=== PATIENT | male | born 1950 | race Caucasian/White ===

== ENCOUNTER 2020-10-13 15:27 | Inpatient (IN) | payer MEDICARE, OTHER ==
[~2020-10-13] VITALS: Ht 177.8 cm; Wt 120.6 kg
[2020-10-13 19:14] LABS: Basophils # (auto) 0.1 10 ^3/uL (0-0.2); Basophils % (auto) 1.3 % (0.0-2.0); Eosinophils # (auto) 0.2 10 ^3/uL (0-0.8); Eosinophils % (auto) 2.8 % (0.0-7.0); Hematocrit 43.3 % (41.0-53.0); Hemoglobin 14.8 g/dL (13.5-17.5); Lymphocytes # (auto) 1.7 10 ^3/uL (0.4-5.4); Lymphocytes % (auto) 20.2 % (10.0-50.0); Mean Corpuscular Hemoglobin 28.9 pg (28.0-32.0); Mean Corpuscular Hgb Conc. 34.2 g/dL (32.0-36.0); Mean Corpuscular Volume 84.4 fL (80.0-100.0); Monocytes # (auto) 0.7 10 ^3/uL (0-1.3); Monocytes % (auto) 8.6 % (0.0-12.0); Neutrophils # (auto) 5.5 10 ^3/uL (1.6-8.6); Neutrophils % (auto) 67.1 % (37.0-80.0); Nucleated Red Blood Cells % 0.1 %; Red Blood Cells 5.13 10^6/uL (4.5-5.90); Red Cell Distribution Width 14.1 % (11.8-14.3); White Blood Cell 8.2 10^3/uL (4.4-10.8)
[2020-10-13 19:27] LABS: INR 0.96 (0.9-1.15)
[2020-10-13 19:31] LABS: Albumin 1.6 g/dL (3.4-5.0); Potassium 3.8 mmol/L (3.5-5.1)
[2020-10-13 19:47] LABS: BUN/Creatinine Ratio 13.4; Bilirubin, Total 0.3 mg/dL (0.2-1.0); Total Protein 5.8 g/dL (6.4-8.2)
[2020-10-13 20:53] LABS: Urine Bacteria FEW /hpf (None Seen); Urine Blood 2+ /uL (Negative); Urine Hyaline Cast FEW /lpf (0 - 2); Urine Mucus FEW (None Seen); Urine Specific Gravity 1.033 (1.001-1.035); Urine WBC 256 /hpf (0 - 3)
[2020-10-13] MEDS ORDERED: TEMAZEPAM 15 MG CAP PO PRN (21:00)
[2020-10-13] MEDS ORDERED: ACETAMINOPHEN 325 MG TAB PO PRN (21:00)
[2020-10-13] MEDS ORDERED: MORPHINE SULFATE 4 MG/ML SYR/VIAL IV PRN (21:00)
[2020-10-13] MEDS ORDERED: cefTRIAXone 1GM/50ML D5W 50 ML IV ONE ×2 (21:00)
[2020-10-13] MEDS ORDERED: ONDANSETRON HCL 4 MG/2 ML VIAL IV PRN (21:00)
[2020-10-14] MEDS ORDERED: DEXTROSE (50%) 50ML SYRG IV PRN ×2 (01:30→17:45)
[2020-10-14 02:23] VITALS: BP 142/83
[2020-10-14] MEDS ORDERED: PNEUMOCOCCAL VACC POLYS 25 MCG/0.5 ML VIAL IM ONE (03:30)
[2020-10-14] MEDS ORDERED: INSUINJ18 SC (04:27)
[2020-10-14 05:00] VITALS: BP 142/83
[2020-10-14] MEDS ORDERED: INSU1INJ26 SC (05:53)
[2020-10-14] MEDS ORDERED: AMLO1TAB16 PO (05:53)
[2020-10-14] MEDS ORDERED: LIRA18IN2 SUBCUT (05:53)
[2020-10-14] MEDS: ACCU-CHEK COMFORT CURVE STRIP VI SCH ×3 (05:57→17:45)
[2020-10-14] MEDS: InsuLIN REG 1unit/0.01ml Soln (100units/ml) SC SCH ×3 (05:58→17:47)
[2020-10-14 06:23] LABS: Basophils # (auto) 0.1 10 ^3/uL (0-0.2); Basophils % (auto) 1.4 % (0.0-2.0); Eosinophils # (auto) 0.3 10 ^3/uL (0-0.8); Eosinophils % (auto) 4.6 % (0.0-7.0); Hematocrit 41.5 % (41.0-53.0); Hemoglobin 13.9 g/dL (13.5-17.5); Lymphocytes # (auto) 1.6 10 ^3/uL (0.4-5.4); Lymphocytes % (auto) 29.1 % (10.0-50.0); Mean Corpuscular Hemoglobin 28.5 pg (28.0-32.0); Mean Corpuscular Hgb Conc. 33.6 g/dL (32.0-36.0); Mean Corpuscular Volume 84.9 fL (80.0-100.0); Monocytes # (auto) 0.6 10 ^3/uL (0-1.3); Monocytes % (auto) 10.7 % (0.0-12.0); Neutrophils % (auto) 54.2 % (37.0-80.0); Nucleated Red Blood Cells % 0.1 %; Red Blood Cells 4.88 10^6/uL (4.5-5.90); Red Cell Distribution Width 13.8 % (11.8-14.3); White Blood Cell 5.6 10^3/uL (4.4-10.8)
[2020-10-14 06:58] LABS: Calcium 7.8 mg/dL (8.5-10.1)
[2020-10-14 08:00] VITALS: BP 140/85
[2020-10-14] MEDS: cefTRIAXone 1GM/50ML D5W 50 ML IV SCH (09:22)
[2020-10-14] MEDS ORDERED: PANTOPRAZOLE 40 MG TAB PO SCH (10:00)
[2020-10-14 17:00] VITALS: BP 123/63
[2020-10-14] MEDS: HYDROcodone-ACET 5/325MG TAB PO PRN ×2 (17:54→21:46)
[2020-10-14 20:00] VITALS: BP 117/54
[2020-10-14 22:00] VITALS: BP 117/54
[2020-10-15] VITALS (7 sets, daily range): BP systolic 120–164; BP diastolic 70–96
[2020-10-15] MEDS: InsuLIN REG 1unit/0.01ml Soln (100units/ml) SC SCH ×5 (00:28→23:51)
[2020-10-15] MEDS: ACCU-CHEK COMFORT CURVE STRIP VI SCH ×5 (00:29→23:36)
[2020-10-15] MEDS: HYDROcodone-ACET 5/325MG TAB PO PRN (05:45)
[2020-10-15] MEDS: cefTRIAXone 1GM/50ML D5W 50 ML IV SCH (08:51)
[2020-10-15] MEDS ORDERED: LIDOCAINE 2%HCL (LOCAL ANESTH.) INJ 20ML MDV ONE (12:29)
[2020-10-15] MEDS ORDERED: fentaNYL CITRATE 100 MCG/2 ML VL ONE (12:50)
[2020-10-15] MEDS ORDERED: MIDAZOLAM HCL 2MG/2ML 2ml VIAL (1mg/ml) ONE (12:51)
[2020-10-15] MEDS ORDERED: ASPirin-EC 325mg tab PO ONE (20:00)
[2020-10-16] MEDS: HYDROcodone-ACET 5/325MG TAB PO PRN ×2 (01:00→05:16)
[2020-10-16 05:00] VITALS: BP 118/54
[2020-10-16] MEDS: InsuLIN REG 1unit/0.01ml Soln (100units/ml) SC SCH (05:15)
[2020-10-16] MEDS: ACCU-CHEK COMFORT CURVE STRIP VI SCH (05:15)
[2020-10-16 09:30] VITALS: BP 156/80
== END 2020-10-16 10:09 | disposition left against medical advice (07) | DRG 698 ==
LOC: ER 15:27 → EDBD 15:27 → OVERFLOW 20:59 → WEST WING 10-14 01:39
PROVIDERS: ADMIT Nurse Practitioner; ATTEND Family Medicine
PROC: 0T25X0Z Change Drainage Device in Kidney, External Approach (ICD-10-PCS; principal; 2020-10-15)
PROC: BT1F1ZZ Fluoroscopy of Left Kidney, Ureter and Bladder using Low Osmolar Contrast (ICD-10-PCS; 2020-10-15)
DX: T83.022A Displacement of nephrostomy catheter, initial encounter (principal); A41.9 Sepsis, unspecified organism; N13.6 Pyonephrosis; K80.20 Calculus of gallbladder without cholecystitis without obstruction; Z53.29 Procedure and treatment not carried out because of patient's decision for other reasons; Y73.2 Prosthetic and other implants, materials and accessory gastroenterology and urology devices associated with adverse incidents; Y92.89 Other specified places as the place of occurrence of the external cause; Z87.442 Personal history of urinary calculi; Z20.822 Contact with and (suspected) exposure to COVID-19; E11.65 Type 2 diabetes mellitus with hyperglycemia
CPT/HCPCS: 36415; 50435; 74176; 74425; 76000; 80048; 80053; 81001; 82962; 83605; 85025; 85610; 87040; 87081; 87086; 87426; 99152; C1729; G0378; J0696; J1815; J2250

== ENCOUNTER 2020-12-02 11:07 | Emergency (ER) | payer OTHER ==
[~2020-12-02] VITALS: Ht 185.4 cm; Wt 104.3 kg
[~2020-12-02 11:07] MED LIST: AMLO1TAB16 PO; INSU1INJ26 SC; LIRA18IN2 SUBCUT
[2020-12-02] MEDS ORDERED: IOHEXOL 300 MG/ML 100ML BOTTLE IJ ONE (12:31)
[2020-12-02 13:17] LABS: Basophils # (auto) 0.1 10 ^3/uL (0-0.2); Basophils % (auto) 1.7 % (0.0-2.0); Eosinophils # (auto) 0.1 10 ^3/uL (0-0.8); Eosinophils % (auto) 1.4 % (0.0-7.0); Hematocrit 40.4 % (41.0-53.0); Hemoglobin 13.3 g/dL (13.5-17.5); Lymphocytes # (auto) 1.8 10 ^3/uL (0.4-5.4); Lymphocytes % (auto) 27.4 % (10.0-50.0); Mean Corpuscular Hemoglobin 28.4 pg (28.0-32.0); Mean Corpuscular Hgb Conc. 32.8 g/dL (32.0-36.0); Mean Corpuscular Volume 86.5 fL (80.0-100.0); Monocytes # (auto) 0.6 10 ^3/uL (0-1.3); Monocytes % (auto) 9.6 % (0.0-12.0); Neutrophils # (auto) 3.9 10 ^3/uL (1.6-8.6); Neutrophils % (auto) 59.9 % (37.0-80.0); Nucleated Red Blood Cells % 0.1 %; Red Blood Cells 4.67 10^6/uL (4.5-5.90); Red Cell Distribution Width 15.8 % (11.8-14.3); White Blood Cell 6.5 10^3/uL (4.4-10.8)
[2020-12-02] MEDS ORDERED: TAMSULOSIN HYDROCHLORIDE 0.4 MG CAP PO ONE (14:15)
[2020-12-02 16:00] VITALS: BP 145/90
== END 2020-12-02 17:44 | disposition home or self-care (01) ==
LOC: EDBD 11:07 → ER 11:07
DX: S09.90XA Unspecified injury of head, initial encounter (principal); N20.0 Calculus of kidney; M25.522 Pain in left elbow; E11.9 Type 2 diabetes mellitus without complications; Z79.4 Long term (current) use of insulin; Z79.899 Other long term (current) drug therapy; V49.9XXA Car occupant (driver) (passenger) injured in unspecified traffic accident, initial encounter; Y93.89 Activity, other specified; Y92.89 Other specified places as the place of occurrence of the external cause; Y99.8 Other external cause status
CPT/HCPCS: 36415; 70450; 71045; 71260; 73080; 73090; 74177; 82962; 83880; 84484; 85025; 99285; Q9967; 93005

== ENCOUNTER → 2021-05-06 | Outpatient (CLI) | payer MEDICARE, OTHER ==
[2021-05-06 08:13] LABS: Urine Bacteria FEW /hpf (None Seen); Urine Blood 1+ /uL (Negative); Urine Mucus FEW (None Seen); Urine Specific Gravity 1.017 (1.001-1.035); Urine WBC 420 /hpf (0 - 3); Urine WBC Clumps PRESENT /hpf (None Seen)
[2021-05-06 08:23] LABS: Eosinophils # (auto) 0.2 10 ^3/uL (0-0.8); Hemoglobin 13.2 g/dL (13.5-17.5); Lymphocytes # (auto) 2.6 10 ^3/uL (0.4-5.4)
[2021-05-06 08:25] LABS: Basophils # (auto) 0.1 10 ^3/uL (0-0.2); Basophils % (auto) 1.1 % (0.0-2.0); Eosinophils % (auto) 2.8 % (0.0-7.0); Hematocrit 39.8 % (41.0-53.0); Lymphocytes % (auto) 35.6 % (10.0-50.0); Mean Corpuscular Hemoglobin 26.4 pg (28.0-32.0); Mean Corpuscular Hgb Conc. 33.3 g/dL (32.0-36.0); Mean Corpuscular Volume 79.2 fL (80.0-100.0); Monocytes # (auto) 0.4 10 ^3/uL (0-1.3); Monocytes % (auto) 6.1 % (0.0-12.0); Neutrophils % (auto) 54.4 % (37.0-80.0); Nucleated Red Blood Cells % 0.2 %; Red Blood Cells 5.02 10^6/uL (4.5-5.90); White Blood Cell 7.3 10^3/uL (4.4-10.8)
[2021-05-06 08:48] LABS: Chloride 107 mmol/L (98-107); Potassium 4.6 mmol/L (3.5-5.1); Sodium 138 mmol/L (136-145)
[2021-05-06 08:56] LABS: Protein, Urine 704.7 mg/dL (0.0-11.9)
[2021-05-06 08:57] LABS: Alanine Aminotransferase 14 U/L (16-61); Albumin 2.1 g/dL (3.4-5.0); Alkaline Phosphatase 77 U/L (45-117); Anion Gap 5 (5-15); Aspartate Aminotransferase 11 U/L (15-37); BUN/Creatinine Ratio 13.6; Bilirubin, Total < 0.1 mg/dL (0.2-1.0); Blood Urea Nitrogen 18 mg/dL (7-18); CRP High Sensitivity 0.36 mg/dL (< 0.3); Calcium 8.9 mg/dL (8.5-10.1); Carbon Dioxide 26 mmol/L (21-32); Cholesterol 266 mg/dL (< 200); GFR African American 69 mL/min; GFR Non-African American 57 mL/min; Glucose 232 mg/dL (74-106); HDL Cholesterol 38 mg/dL (40-59); LDL Cholesterol 170 mg/dL (< 100); Magnesium 1.9 mg/dL (1.6-2.6); Phosphorus 3.4 mg/dL (2.5-4.90); Triglycerides 284 mg/dL (< 150)
== END | disposition home or self-care (01) ==
LOC: LAB 06:51
PROVIDERS: ATTEND Internal Medicine Nephrology
DX: N18.31 Chronic kidney disease, stage 3a (principal); N04.9 Nephrotic syndrome with unspecified morphologic changes; Z79.899 Other long term (current) drug therapy
CPT/HCPCS: 36415; 80053; 80061; 81001; 82306; 82570; 83036; 83735; 83883; 83970; 84100; 84156; 85025; 85652; 86141; 86160; 86256

== ENCOUNTER → 2021-05-30 | Outpatient (CLI) | payer MEDICARE, OTHER ==
[2021-05-30 10:33] LABS: Basophils # (auto) 0.1 10 ^3/uL (0-0.2); Eosinophils # (auto) 0.2 10 ^3/uL (0-0.8); Monocytes # (auto) 0.4 10 ^3/uL (0-1.3); Neutrophils # (auto) 3.2 10 ^3/uL (1.6-8.6); Red Cell Distribution Width 17.8 % (11.8-14.3); White Blood Cell 6.6 10^3/uL (4.4-10.8)
[2021-05-30 10:35] LABS: Basophils % (auto) 1.8 % (0.0-2.0); Eosinophils % (auto) 3.3 % (0.0-7.0); Hematocrit 42.6 % (41.0-53.0); Hemoglobin 14.2 g/dL (13.5-17.5); Lymphocytes # (auto) 2.6 10 ^3/uL (0.4-5.4); Lymphocytes % (auto) 39.8 % (10.0-50.0); Mean Corpuscular Hemoglobin 27.2 pg (28.0-32.0); Mean Corpuscular Hgb Conc. 33.3 g/dL (32.0-36.0); Mean Corpuscular Volume 81.6 fL (80.0-100.0); Monocytes % (auto) 6.8 % (0.0-12.0); Neutrophils % (auto) 48.3 % (37.0-80.0); Nucleated Red Blood Cells % 0.2 %; Red Blood Cells 5.22 10^6/uL (4.5-5.90)
[2021-05-30 10:55] LABS: INR 0.96 (0.9-1.15)
== END | disposition home or self-care (01) ==
LOC: LAB 09:56
PROVIDERS: ATTEND Internal Medicine Nephrology
DX: E11.65 Type 2 diabetes mellitus with hyperglycemia (principal); E11.22 Type 2 diabetes mellitus with diabetic chronic kidney disease; N18.31 Chronic kidney disease, stage 3a; N20.0 Calculus of kidney; R80.9 Proteinuria, unspecified
CPT/HCPCS: 36415; 85025; 85610; 85730

== ENCOUNTER → 2021-07-05 | Outpatient (CLI) | payer MEDICARE, OTHER ==
[2021-07-05 11:49] LABS: Basophils # (auto) 0.1 10 ^3/uL (0-0.2); Basophils % (auto) 1.7 % (0.0-2.0); Eosinophils # (auto) 0.3 10 ^3/uL (0-0.8); Eosinophils % (auto) 4.3 % (0.0-7.0); Monocytes # (auto) 0.4 10 ^3/uL (0-1.3); Nucleated Red Blood Cells % 0.1 %
[2021-07-05 11:52] LABS: Hematocrit 42.6 % (41.0-53.0); Hemoglobin 14.3 g/dL (13.5-17.5); Lymphocytes # (auto) 3.1 10 ^3/uL (0.4-5.4); Lymphocytes % (auto) 44.9 % (10.0-50.0); Mean Corpuscular Hemoglobin 27.2 pg (28.0-32.0); Mean Corpuscular Hgb Conc. 33.5 g/dL (32.0-36.0); Mean Corpuscular Volume 81.1 fL (80.0-100.0); Monocytes % (auto) 6.5 % (0.0-12.0); Neutrophils % (auto) 42.6 % (37.0-80.0); Red Blood Cells 5.26 10^6/uL (4.5-5.90); Red Cell Distribution Width 16.9 % (11.8-14.3); White Blood Cell 6.9 10^3/uL (4.4-10.8)
[2021-07-05 12:11] LABS: INR 1.02 (0.9-1.15); Partial Thromboplastin Time 29.4 sec (23.6-33.0)
[2021-07-05 12:36] LABS: Albumin 2.5 g/dL (3.4-5.0); Calcium 8.5 mg/dL (8.5-10.1); Potassium 4.3 mmol/L (3.5-5.1)
[2021-07-05 12:51] LABS: BUN/Creatinine Ratio 17.9; Bilirubin, Total 0.5 mg/dL (0.2-1.0); Total Protein 6.7 g/dL (6.4-8.2)
== END | disposition home or self-care (01) ==
LOC: LAB 11:17
PROVIDERS: ATTEND Internal Medicine Nephrology
DX: Z01.812 Encounter for preprocedural laboratory examination (principal); N18.31 Chronic kidney disease, stage 3a
CPT/HCPCS: 36415; 80053; 85025; 85610; 85730

== ENCOUNTER 2024-01-21 05:11 | Inpatient (IN) | payer OTHER ==
[~2024-01-21] VITALS: Ht 177.8 cm; Wt 93.0 kg
[2024-01-21] VITALS (17 sets, daily range): BP systolic 132–173; BP diastolic 50–92; PULSE 62–86; RESP 12–20; TEMP 97.4–98.8; O2SAT 95–100
[~2024-01-21 05:11] MED LIST changes: +HYDR-4798 PO
--- NOTE | 2024-01-21 05:21 | ED.PDOC ---
HPI Comments 74-year-old male with PMHx HTN, DM brought in by EMS presents with a chief complaint of chest pain onset 0200 this morning. Patient states that he was sleeping and got up to use the restroom at 0200 and began to have onset of chest pain. Patient reports that his pain is localized to his substernal chest, non- radiating, and describes as "feels like a big lump in my chest". Patient mentions that he called 911 and was told to take ASA, which he did. Patient took a total of 500mg ASA. Patients EKG was sent to on-call STEMI provider, Dr. Pizarro, who confirmed it was a STEMI. Code STEMI was called overhead. Time Seen by MD: 05:13 Reviewed Notes: Medications, Allergies Allergies: Coded Allergies: NO KNOWN ALLERGIES (Unverified , 04/28/23) Home Meds Active Scripts Hydrocodone-Acetaminophen (Hydrocodone Bitartrate/AC 10-325 mg) 1 Tab Tab, 1 TAB PO BID, #12 TAB Prov:DAVONTE PICHARDO 04/28/23 Information Source: Patient, Emergency Med Personnel Mode of Arrival: EMS Severity: Moderate Timing: Hours Duration: Since onset Prehospital treatment: ASA Location: Substernal Radiation: No Radiation Quality: Pressure Onset: At Rest Cardiac Risk Factors: HTN, Diabetes PE Risk Factors: None History of: Aspirin Past Medical History PAST MEDICAL HISTORY: DM, HTN Surgical History: Denies all surgeries Family History Family History: Reviewed,noncontributory to illness Social History Smoker: Non-Smoker Alcohol: Denies ETOH Use Drugs: Denies Drug Use Lives In: Home Constitutional: denies: chills, diaphoresis, fatigue, fever, malaise, sweats, weakness, others EENTM: denies: blurred vision, double vision, ear bleeding, ear discharge, ear drainage, ear pain, ear ringing, eye pain, eye redness, hearing loss, mouth pain, mouth swelling, nasal discharge, nose bleeding, nose congestion, nose pain, photophobia, tearing, throat pain, throat swelling, voice changes, others Respiratory: denies: cough, hemoptysis, orthopnea, SOB at rest, shortness of breath, SOB with excertion, stridor, wheezing, others Cardiovascular: reports: chest pain; denies: dizzy spells, diaphoresis, Dyspnea on exertion, edema, irregular heart beat, left arm pain, lightheadedness, palpitations, PND, syncope, others Gastrointestinal: denies: abdomen distended, abdominal pain, blood streaked bowels, constipated, diarrhea, dysphagia, difficulty swallowing, hematemesis, melena, nausea, poor appetite, poor fluid intake, rectal bleeding, rectal pain, vomiting, others Genitourinary: denies: burning, dysuria, flank pain, frequency, hematuria, incontinence, penile discharge, penile sore, pain, testicle pain, testicle swelling, urgency, others Neurological: denies: dizziness, fainting, headache, left sided numbness, left sided weakness, numbness, paresthesia, pre-existing deficit, right sided numbness, right sided weakness, seizure, speech problems, tingling, tremors, weakness, others Musculoskeletal: denies: back pain, gout, joint pain, joint swelling, muscle pain, muscle stiffness, neck pain, others Integumetry: denies: bruises, change in color, change in hair/nails, dryness, laceration, lesions, lumps, rash, wounds, others Allergic/Immunocompromised: denies: Difficulty Healing, Frequent Infections, Hives, Itching, others Hematologic/Lymphatic: denies: anemia, blood clots, easy bleeding, easy bruising, swollen glands, others Endocrine: denies: excessive hunger, excessive sweating, excessive thirst, excessive urination, flushing, intolerance to cold, intolerance to heat, un explained weight gain, unexplained weight loss, others Psychiatric: denies: anxiety, bipolar disorder, depression, hopeless, panic disorder, schizophrenia, sleepless, suicidal, others All Other Systems: Reviewed and Negative Physical Exam General Appearance: No Apparent Distress, Normal HEENT: Normal ENT Inspection, Pharynx Normal, TMs Normal Neck: Full Range of Motion, Non-Tender, Normal, Normal Inspection Respiratory: Chest Non-Tender, Lungs Clear, No Accessory Muscle Use, No Respiratory Distress, Normal Breath Sounds Cardiovascular: No Edema, No JVD, No Murmur, No Gallop, Normal Peripheral Pu lses, Regular Rate/Rhythm, Other (CHEST PAIN) Breast Exam: Deferred Gastrointestinal: No Organomegaly, Non Tender, No Pulsatile Mass, Normal Bowel Sounds, Soft Genitalia: Deferred Pelvic: Deferred Rectal: Deferred Extremities: No calf tenderness, Normal capillary refill, Normal inspection, Normal range of motion, Non-tender, No pedal edema Musculoskeletal : Apperance: Normal Neurologic: Alert, preparation room worker II-XII nml as Tested, No Motor Deficits, Normal Affect, Normal Mood, No Sensory Deficits Cerebellar Function: Normal Reflexes: Normal Skin: Dry, Normal Color, Warm Lymphatic: No Adenopathy Was a procedure done? Was a procedure done?: No CP Differential Dx Differential Diagnosis: MAT, OK, PAC's Differential Diagnosis: CHF, HTN Essential, HTN Accelerated Differential Diagnosis: Myocardial Infarction X-Ray, Labs, Meds, VS Vital Signs Date Time Temp Pulse Resp B/P (MAP) Pulse Ox O2 Delivery O2 Flow Rate FiO2 01/21/24 05:27 86 15 189/105 (133) 100 01/21/24 05:27 86 01/21/24 05:23 98.4 74 16 179/143 (155) 98 Lab Test 01/21/24 05:26 01/21/24 05:19 Range/Units Lactic Acid Level Pending White Blood Count Pending Red Blood Count Pending Hemoglobin Pending Hematocrit Pending Mean Corpuscular Volume Pending Mean Corpuscular Hemoglobin Pending Mean Corpuscular Hemoglobin Concent Pending Red Cell Distribution Width Pending Platelet Count Pending Mean Platelet Volume Pending Neutrophils (%) (Auto) Pending Lymphocytes (%) (Auto) Pending Monocytes (%) (Auto) Pending Basophils (%) (Auto) Pending Neutrophils # (Auto) Pending Lymphocytes # (Auto) Pending Monocytes # (Auto) Pending Prothrombin Time Pending Prothrombin Time INR Pending Activated Partial Thromboplast Time Pending Sodium Level Pending Potassium Level Pending Chloride Level Pending Carbon Dioxide Level Pending Anion Gap Pending Blood Urea Nitrogen Pending Creatinine Pending Glomerular Filtration Rate Calc Pending BUN/Creatinine Ratio Pending Serum Glucose Pending Calcium Level Pending Troponin I High Sensitivity Pending B-Type Natriuretic Peptide Pending Current Medications Medications (Trade) Dose Ordered Sig/Meli Route Start Time Stop Time Status Last Admin Heparin Sodium (Porcine) 4,000 units ONCE ONCE IV 01/21/24 05:30 01/21/24 05:31 DC 01/21/24 05:24 Time of 1ST Reevaluation: 05:43 Reevaluation 1ST: Unchanged Patient Education/Counseling: Diagnosis, Treatment, Prognosis Family Education/Counseling: No Family Present Departure 1 Departure Time of Disposition: 05:36 (Patient presented with chest pain that was concerning for possible STEMI, ACS, PE, Pneumonia, Muscle Strain, COPD, Dissection. Data: 1. I ordered and reviewed the result of at least 3 labs including a CBC, BMP, and Troponin. 2. I independently interpreted the following tests: EKG which shows an inferior OK and Chest X-ray which shows benign chest.Risk:This patient has a high risk of morbidity due to further diagnostic testing or treatment and may suffer from an acute cardiac or respiratory disorder. 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 This critical care time included obtaining a history; examining the patient; pulse oximetry; ordering and review of studies; arranging urgent treatment with development of a management plan; evaluation of patient's response to treatment; frequent reassessment; and, discussions with other providers. This critical care time was performed to assess and manage the high probability of imminent, life-threatening deterioration that could result in multi-organ failure. It was exclusive of separately billable procedures and treating other patients and teaching time. Please see my other sections and the rest of the note for further information on patient assessment and treatment. Stability Stability form required: No Heart Score Heart Score: Heart Score Response (Comments) Value History Highly Suspicious [address]-Deviation 2 Age >65 2 Risk Factors >3 or Hx ASHD 2 Troponin >3 x's Normal limit 2 Total 10 I personally scribed for GUME MIDDLETON MD ([email or web address]) on 01/21/24 at 05:21. Electronically submitted by Angel Llanos ([email or web address]). GUME MIDDLETON MD Jan 21, 2024 05:21
[2024-01-21] MEDS: HEPARIN SODIUM (PORCINE) 5000 UNITS/ML 1ML VIAL IV ONE (05:24)
[2024-01-21 05:36] LABS: Basophils # (auto) 0.1 10 ^3/uL (0-0.2); Eosinophils # (auto) 0.1 10 ^3/uL (0-0.8); Eosinophils % (auto) 1.6 % (0.0-7.0); Hematocrit 44.8 % (41.0-53.0); Hemoglobin 14.7 g/dL (13.5-17.5); Lymphocytes # (auto) 2.2 10 ^3/uL (0.4-5.4); Lymphocytes % (auto) 27.3 % (10.0-50.0); Mean Corpuscular Hemoglobin 27.6 pg (28.0-32.0); Mean Corpuscular Hgb Conc. 32.9 g/dL (32.0-36.0); Mean Corpuscular Volume 83.8 fL (80.0-100.0); Monocytes # (auto) 0.6 10 ^3/uL (0-1.3); Monocytes % (auto) 7.6 % (0.0-12.0); Neutrophils # (auto) 5.1 10 ^3/uL (1.6-8.6); Neutrophils % (auto) 62.5 % (37.0-80.0); Nucleated Red Blood Cells % 0.1 %; Platelet Count (auto) 227 10^3/uL (140-450); Red Blood Cells 5.34 10^6/uL (4.5-5.90); Red Cell Distribution Width 16.3 % (11.8-14.3); White Blood Cell 8.2 10^3/uL (4.4-10.8)
[2024-01-21 05:52] LABS: Potassium 4.3 mmol/L (3.5-5.1); Sodium 141 mmol/L (136-145)
[2024-01-21 05:53] LABS: Anion Gap 10 (5-15); Carbon Dioxide 23 mmol/L (20-31)
[2024-01-21 05:54] LABS: Calcium 9.7 mg/dL (8.7-10.4); INR 0.97 (0.9-1.15); Partial Thromboplastin Time 27.1 SEC (24.5-34.5); Prothrombin Time 10.3 sec (9.3-11.8)
--- NOTE | 2024-01-21 05:54 | DVHINCON2 ---
Date of service: Jan 21, 2024 History of Present Illness 74 yo M with IDDM, dm, htn HL admitted for stemi. pt woke up this AM with chest pike from asleep and called 911. pt had inferior ST elevation Past Medical History reviewed Allergies: Coded Allergies: NO KNOWN ALLERGIES (Unverified , 04/28/23) Home Meds Active Scripts Hydrocodone-Acetaminophen (Hydrocodone Bitartrate/AC 10-325 mg) 1 Tab Tab, 1 TAB PO BID, #12 TAB Prov:DAVONTE PICHARDO 04/28/23 Current Medications Current Medications Medications (Trade) Dose Ordered Sig/Meli Route PRN Reason Start Time Stop Time Status Last Admin Heparin Sodium/ Dextrose 250 ml @ 14.16 mls/ hr [id number] IV 01/21/24 05:30 UNV Review of Systems +chest pain +sob +diaphoresis 10 pt ros otherwise negative Vital Signs Vital Signs Date Time Temp Pulse Resp B/P (MAP) Pulse Ox O2 Delivery O2 Flow Rate FiO2 01/21/24 05:27 86 15 189/105 (133) 100 01/21/24 05:23 98.4 Physical Exam mild distress obese heavy male LEDA EOM! s1 s2 rrr ctab soft nt/nd trivial edema Labs/Diagnostic Data Labs Test 01/21/24 05:26 01/21/24 05:19 Range/Units White Blood Count 8.2 4.4-10.8 10^3/uL Red Blood Count 5.34 4.5-5.90 10^6/uL Hemoglobin 14.7 13.5-17.5 g/dL Hematocrit 44.8 41.0-53.0 % Mean Corpuscular Volume 83.8 80.0-100.0 fL Mean Corpuscular Hemoglobin 27.6 L 28.0-32.0 pg Mean Corpuscular Hemoglobin Concent 32.9 32.0-36.0 g/dL Red Cell Distribution Width 16.3 H 11.8-14.3 % Platelet Count 227 140-450 10^3/uL Mean Platelet Volume 8.0 6.9-10.8 fL Neutrophils (%) (Auto) 62.5 37.0-80.0 % Lymphocytes (%) (Auto) 27.3 10.0-50.0 % Monocytes (%) (Auto) 7.6 0.0-12.0 % Eosinophils (%) (Auto) 1.6 0.0-7.0 % Basophils (%) (Auto) 1.0 0.0-2.0 % Neutrophils # (Auto) 5.1 1.6-8.6 10 ^3/uL Lymphocytes # (Auto) 2.2 0.4-5.4 10 ^3/uL Monocytes # (Auto) 0.6 0-1.3 10 ^3/uL Eosinophils # (Auto) 0.1 0-0.8 10 ^3/uL Basophils # (Auto) 0.1 0-0.2 10 ^3/uL Nucleated Red Blood Cells 0.1 % Assessment stemi HTN IDDM HL Plan/Recommendation pt at highest risk for cv complications or , pt agrees to [facility] after informed consent asa heparin check echo admit to ICU /sejal further recs to follow 90 mins critical care time spent Plan discussed with: Patient PATTERSONTANVIR MD Jan 21, 2024 05:54
--- NOTE | 2024-01-21 06:06 | DVH ---
CHEST RADIOGRAPH Indication: chest pain Technique: Single frontal view of the chest was obtained Comparison: None FINDINGS: Lines and Tubes: None Lungs: Bilateral interstitial prominence. No focal consolidation. Pleura: No effusion. No pneumothorax. Cardiomediastinal contours: Cardiomegaly. Bones: No acute osseous abnormality. IMPRESSION: 1. Pulmonary vascular congestion.
[2024-01-21 06:25] LABS: Chloride 108 mmol/L (98-107); Glucose 185 mg/dL (74-106)
[2024-01-21] MEDS ORDERED: HEPARIN DRIP/D5W 100UNITS/ML 250 ML IV SCH (06:30)
[2024-01-21 06:42] LABS: BUN/Creatinine Ratio 16.5 (10.0-20.0)
[2024-01-21 06:47] LABS: Blood Urea Nitrogen 31 mg/dL (9-23)
--- NOTE | 2024-01-21 06:52 | ECG ---
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
--- NOTE | 2024-01-21 07:24 | DVHOP2 ---
Operative Report Operative Report CARDIAC [employer]PLE MEAT CUTTER PROCEDURE REPORT [place], [place] Date of Service: 01/21/24 Ground Worker: Ryan Patterson MD PROCEDURES PERFORMED: Coronary angiogram, left heart catheterization, conscious sedation administration and supervision, less than 15 minutes; fluoroscopy use and interpretation. PTCA 1 vessel, PCI 1 v essel, Acute AK intervention, STEMI intervention, conscious sedation 15-30 mins, sedation 30-45 mins PREOPERATIVE DIAGNOSES: inferior stemi POSTOP DIAGNOSIS: inferior stemi DESCRIPTION OF PROCEDURE: The patient or appropriate family signed informed consent understanding the risks, benefits and alternatives of the procedure, they wished to proceed. The patient was brought to the cardiac warehouse general laborer in [place] state. The patient was prepped in a sterile fashion. Sedation was used per cardiac cath protocol. I administered 2 mL of 2% lidocaine to the right wrist. With an antegrade front wall puncture. I cannulated the right radial artery and placed a 6-Uzbek Glidesheath slender. Next, an intra-arterial spasmolytic was administered. Next, a -6F JR4 guide and JL3.5 cathetr and were used for coronary angiogram and LVEDP measurement and pressure pullback. At the completion of procedure, all guides and wires were removed, and there were no immediate complications. FINDINGS: RCA: Moderate vessel off the right sinus of Valsalva, there is a distal RCA 100% occlusion with valorie 0 flow. this is a dominant vessel with a very large PDA coming off distally that reaches entire inferoapex of LV LEFT MAIN: Moderate size left main, it bifurcates into LAD and circumflex.20- 30% stenosis distally CIRCUMFLEX: Moderate caliber vessel coming off the left main. 80% prox ecce ntric lesion and 85% OM1 long tubular lesion . LAD: LAD is a moderate caliber vessel coming of the left main. there is diffus e 50% stenosis in mid portion. its a smaller vessel compared to cx and rca. INTERVENTION: We decided to proceed with coronary intervention. I started with a 6F __JR4 __ Guide to intubate the __RCA . Angiomax bolus and gtt was started. Following this, I decided to wire using an .014 BMW across the culprit lesion with ease. At this time, we performed balloon angioplasty with a _2.5 x 12 mm balloon 8___ ATMS over __15__ seconds with 2_ number of inflations. Following this, I decided to place a stent using a 2.5 x 26 mm onyx____ stent inflated up to __18___ ATMS over 15 seconds with two separate inflations. THen i covered more proximally given long lesion with 3.0 x 26 mm YVAN inflated up to 16 atms over 15 seconds with 2 inflations and one more inflation between 2 stents. Following this, the stent balloon removed and angio performed showing 0% residual stenosis. VALORIE pre/post: 3./3 CONCLUSIONS: 1. successful PCI of an acutely occluded distal RCA 100% lesion and valorie 0 flow now with 2 YVAN and valorie 3 flow 2. CX PCI to follow staged PLAN: Aggressive risk factor modification and medical management for the patient. DAPT x 1 year uninterrupted RYAN PATTERSON MD Jan 21, 2024 07:24
[2024-01-21] MEDS ORDERED: MORPHINE SULFATE INJ 2 MG/ml SYRG IV PRN (07:30)
[2024-01-21] MEDS ORDERED: NITROGLYCERIN 0.4 MG SL TAB SL PRN (07:30)
--- NOTE | 2024-01-21 10:20 | DVHSR ---
APPROVED REPORT EXAM: Two-dimensional and M-mode echocardiogram with Doppler and color Doppler. INDICATION STEMI RISK FACTORS Height: 5'10", Weight: 260 DIMENSIONS LVDd5.4 (3.8-5.7cm)LA (2D)4.7 (1.9-4.0cm)Aortic Root3.5 (2.0-3.7cm) LVDs4.0 (2.5-4.0cm)LA (MM) (1.9-4.0cm)Aortic Cusp Exc2.4 (1.5-2.0cm) EF (%) 50.0 (55-70%)Rt. Atrium4.2 (1.9-4.0cm)Asc. Aorta3.7 cm IVSd1.3 (0.7-1.1cm)RV (D) (1.8-2.4cm) PWd1.0 (0.7-1.1cm) Mitral Valve MitralMitral Stenosis E wave0.68m/sMV Mean GR.mmHg A wave1.16m/sMV Peak GR.mmHg E/A ratio0.62D MVAcm2 DECEL [id number] 1/2 Timems Aortic Valve Aortic ValveAortic Stenosis V10.77m/Bhaskar Mean GR.3mmHg V21.13m/Bhaskar Peak GR.5mmHg LVOT Diameter2.5 (1.8-2.4cm)Doppler AVA3.34cm2 Pulmonic Valve V20.85m/s Other Information Quality : Technically LimitedRhythm : Technically limited study due to patient position and body habitus. Conclusion lvef 40-45% mild LVH inferior wall RWMA RV enlarged mild no severe valve abnormaliites noted
--- NOTE | 2024-01-21 11:56 | DVHPN2 ---
Progress Note Date Seen: Jan 21, 2024 Medical Necessity Reason Pt with a Central, PICC or Fol: No Subjective Patient reports: No new complaints Review of Systems: HEENT:Normal, CVS:Normal, RESPIRATORY:Normal, GI:Normal, :Normal, MSK:Normal, NEURO:Normal Objective vital signs Vital Sign Date Time Temp Pulse Resp B/P (MAP) Pulse Ox O2 Delivery O2 Flow Rate FiO2 01/21/24 10:12 97.9 82 14 155/80 (105) 97.9 01/21/24 09:31 99 Nasal Cannula* 2 28 medications Current Medications Medications Dose Ordered Sig/Meli Route Start Time Stop Time Status Last Admin Dose Admin Heparin Sodium/ Dextrose 250 ml @ 10 mls/hr Q24H IV 01/21/24 06:30 Nitroglycerin 0.4 mg Q5MINP PRN SL 01/21/24 07:30 Morphine Sulfate 2 mg Q30M PRN IV 01/21/24 07:30 Aspirin 81 mg DAILY PO 01/22/24 10:00 Clopidogrel Bisulfate 75 mg DAILY PO 01/22/24 10:00 Examination: GENERAL:Normal, HEENT:Normal, NECK:Normal, LUNGS:Normal, CVS:Normal, ABDOMEN:Normal, MSK:Normal, SKIN:Normal, NEURO:Normal, :Normal laboratory and microbiology Laboratory Tests 01/21/24 05:19 Test 01/21/24 05:19 Range/Units Serum Glucose 185 H 74-106 mg/dL Problem List/Assessment/Plan Problem List/Assessment/Plan #1 acute mi s/p stents: asa, plavix, lipitor #2 htn: lopressor, norvasc #3 dm: ssi #4 obesity #5 peripheral neuropathy #6 acute systolic/diastolic heart failure: echo #7 ckd stage 3b: usg, ua full code for now, will re evaluate code status Plan discussed with: Patient My Orders My Orders Orders - TEMI CRENSHAW MD Procedure Category Date Status Time Glucose Blood PHA 01/21/24 Transmitted (Accu-Chek Comfort 17:00 Mild Sliding Scale PHA 01/21/24 Transmitted 17:00 Dextrose 50% Syringe PHA 01/21/24 Transmitted 12:00 Urinalysis LAB 01/21/24 Transmitted 11:49 Kidney US 01/21/24 Transmitted 11:49 Complete Blood Count LAB 01/22/24 Verified 06:00 Comprehensive LAB 01/22/24 Verified Metabolic Panel 06:00 Hemoglobin A1c LAB 01/22/24 Verified 06:00 Lipid Panel LAB 01/22/24 Verified 06:00 Atorvastatin (Lipitor) PHA 01/21/24 Transmitted 22:00 Metoprolol Tartrate PHA 01/21/24 Transmitted Tablet (Lopressor Ta 12:00 Metoprolol Tartrate PHA 01/21/24 Transmitted Tablet (Lopressor Ta 22:00 Amlodipine Tablet PHA 01/22/24 Transmitted (Norvasc Tablet) 10:00 Hydrocodone-Acet PHA 01/21/24 Transmitted 10/325mg Tab (M[place] 12:00 Ondansetron Hcl PHA 01/21/24 Transmitted (Zofran) 12:00 Acetaminophen Tablet PHA 01/21/24 Transmitted (Tylenol Tablet) 12:00 Consistent DIET 01/21/24 Verified Carb(Ccho)Diabetes Lunch Critical Care Time (mins): 39 (critical care time 39 mins) Date of Service: Jan 21, 2024 Billing Provider: TEMI CRENSHAW MD Common Visit Codes: [id number] CARE 30-74 MIN TEMI CRENSHAW MD Jan 21, 2024 11:56
[2024-01-21] MEDS ORDERED: DEXTROSE (50%) 50ML SYRG IV PRN (12:00)
[2024-01-21] MEDS ORDERED: ONDANSETRON HCL 4 MG/2 ML VIAL IV PRN (12:00)
[2024-01-21] MEDS: METOPROLOL TARTRATE 25 MG TAB PO ONE (13:09)
--- NOTE | 2024-01-21 13:29 | DVH ---
RENAL ULTRASOUND CLINICAL HISTORY: renal failure TECHNIQUE: Multiple ultrasound images of the kidneys and bladder were obtained. COMPARISON: None FINDINGS: The right kidney measures 12.6 cm in length. The left kidney measures 13.5 cm. There is left renal hy dronephrosis. There is no sonographic evidence of nephrolithiasis. Bladder appears within normal limits with prevoid volume measuring 383 cc. IMPRESSION: 1. Left renal hydronephrosis. There is no sonographic evidence of nephrolithiasis. HS:Y
[2024-01-21] MEDS: ACCU-CHEK COMFORT CURVE STRIP VI SCH (17:00)
[2024-01-21] MEDS: ACETAMINOPHEN 325 MG TAB PO PRN (17:45)
[2024-01-21] MEDS: CLOPIDOGREL BISULFATE 75 MG TAB PO ONE (17:57)
[2024-01-21] MEDS: InsuLIN REG 1unit/0.01ml Soln (100units/ml) SC SCH (18:05)
[2024-01-21] MEDS: METOPROLOL TARTRATE 25 MG TAB PO SCH (21:55)
[2024-01-21] MEDS: ATORVASTATIN 20 MG TAB PO SCH (21:55)
[2024-01-21] MEDS: HYDROcodone-ACET 10/325MG TAB PO PRN (21:56)
[2024-01-22] VITALS (7 sets, daily range): BP systolic 129–136; BP diastolic 56–81; PULSE 59–77; RESP 16–20; TEMP 97.6–98.2; O2SAT 94–98
[2024-01-22] MEDS: TICAGRELOR 90 MG TAB ONE (00:23)
[2024-01-22] MEDS: ANGIOMAX 250 MG VIAL IV ONE ×2 (00:24)
[2024-01-22] MEDS: SODIUM CHL 0.9% 50 ML ONE (00:24)
[2024-01-22] MEDS: ATROPINE SULF 1 MG/10ml SYR ONE (00:24)
[2024-01-22] MEDS: MIDAZOLAM HCL 2MG/2ML 2ml VIAL (1mg/ml) ONE (00:25)
[2024-01-22] MEDS: LIDOCAINE 1% HCL (LOCAL ANESTH.) INJ 20ML MDV ONE (00:25)
[2024-01-22] MEDS: VERAPAMIL 2.5MG/ML INJ 2ML VIAL IV ONE (00:25)
[2024-01-22] MEDS: fentaNYL CITRATE 100 MCG/2 ML VL ONE (00:25)
[2024-01-22] MEDS: IODIXANOL 320MG/ML 100ML BTL IV ONE (00:26)
[2024-01-22] MEDS: HEPARIN IN NS 1000Units/500mL 1,500 ML ONE (00:26)
[2024-01-22] MEDS: ASPirin 81 mg TAB ONE (00:27)
[2024-01-22] MEDS ORDERED: INSU100I70 SC (04:00)
[2024-01-22] MEDS ORDERED: METH-1181 PO (04:00)
[2024-01-22 07:04] LABS: Alanine Aminotransferase 19 U/L (7-40); Alkaline Phosphatase 57 U/L (46-116); Anion Gap 7 (5-15); Calcium 9.1 mg/dL (8.7-10.4); Carbon Dioxide 24 mmol/L (20-31); Potassium 4.3 mmol/L (3.5-5.1); Sodium 139 mmol/L (136-145)
[2024-01-22 07:05] LABS: Albumin 3.3 g/dL (3.2-4.8); Bilirubin, Total 0.6 mg/dL (0.2-1.0); Cholesterol 196 mg/dL (< 200); Total Protein 6.2 g/dL (5.7-8.2)
[2024-01-22 07:07] LABS: Aspartate Aminotransferase 85 U/L (13-40); Blood Urea Nitrogen 26 mg/dL (9-23); Chloride 108 mmol/L (98-107); Glucose 167 mg/dL (74-106); HDL Cholesterol 35 mg/dL (40-59); LDL Cholesterol 122 mg/dL (< 100); Triglycerides 235 mg/dL (< 150)
[2024-01-22 07:09] LABS: Basophils # (auto) 0.1 10 ^3/uL (0-0.2); Basophils % (auto) 0.9 % (0.0-2.0); Eosinophils # (auto) 0.3 10 ^3/uL (0-0.8); Eosinophils % (auto) 3.4 % (0.0-7.0); Hematocrit 41.7 % (41.0-53.0); Lymphocytes # (auto) 2.6 10 ^3/uL (0.4-5.4); Lymphocytes % (auto) 27.9 % (10.0-50.0); Mean Corpuscular Hemoglobin 27.9 pg (28.0-32.0); Mean Corpuscular Hgb Conc. 33.5 g/dL (32.0-36.0); Mean Corpuscular Volume 83.4 fL (80.0-100.0); Monocytes # (auto) 0.6 10 ^3/uL (0-1.3); Monocytes % (auto) 6.9 % (0.0-12.0); Neutrophils # (auto) 5.7 10 ^3/uL (1.6-8.6); Neutrophils % (auto) 60.9 % (37.0-80.0); Nucleated Red Blood Cells % 0.1 %; Platelet Count (auto) 229 10^3/uL (140-450); Red Cell Distribution Width 16.5 % (11.8-14.3); White Blood Cell 9.3 10^3/uL (4.4-10.8)
[2024-01-22] MEDS: amLODIPine BESYLATE 5 MG TAB PO SCH (09:44)
[2024-01-22] MEDS: CLOPIDOGREL BISULFATE 75 MG TAB PO SCH (09:46)
[2024-01-22] MEDS: ASPirin 81 mg TAB PO SCH (09:48)
--- NOTE | 2024-01-22 12:58 | DVHPN2 ---
Progress Note Date Seen: Jan 22, 2024 Medical Necessity Reason Pt with a Central, PICC or Fol: No Subjective Patient reports: Feels better Other Systems: sp pci Objective vital signs Vital Sign Date Time Temp Pulse Resp B/P (MAP) Pulse Ox O2 Delivery O2 Flow Rate FiO2 01/22/24 09:44 138/73 01/22/24 09:43 62 01/22/24 09:00 98.2 18 97 98.2 01/22/24 08:00 Room Air* 0 21 Total Intake and Output 01/21/24 01/21/24 01/22/24 15:00 23:00 07:00 Intake Total 500 ml 350 ml Output Total 400 ml 300 ml Balance 100 ml 50 ml medications Current Medications Medications Dose Ordered Sig/Meli Route Start Time Stop Time Status Last Admin Dose Admin Nitroglycerin 0.4 mg Q5MINP PRN SL 01/21/24 07:30 Morphine Sulfate 2 mg Q30M PRN IV 01/21/24 07:30 Aspirin 81 mg DAILY PO 01/22/24 10:00 Clopidogrel Bisulfate 75 mg DAILY PO 01/22/24 10:00 01/22/24 09:46 75 MG Diagnostic Test (Pha) 1 strip ACHS 01/21/24 17:00 01/22/24 11:49 1 STRIP Insulin Human Regular ACHS SC 01/21/24 17:00 01/22/24 11:53 4 UNITS Dextrose 50 ml UD PRN IV 01/21/24 12:00 Atorvastatin Calcium 40 mg HS PO 01/21/24 22:00 01/21/24 21:55 40 MG Metoprolol Tartrate 25 mg BID PO 01/21/24 22:00 01/22/24 09:43 25 MG Amlodipine Besylate 10 mg DAILY PO 01/22/24 10:00 01/22/24 09:44 10 MG Acetaminophen/ Hydrocodone Bitart 1 tab Q6HP PRN PO 01/21/24 12:00 01/22/24 04:07 1 TAB Ondansetron HCl 4 mg Q6HPRN PRN IV 01/21/24 12:00 Acetaminophen 650 mg Q6HP PRN PO 01/21/24 12:00 01/21/24 17:45 650 MG Examination: GENERAL:Abnormal, HEENT:Abnormal, LUNGS:Abnormal, CVS:Abnormal, ABDOMEN:Abnormal laboratory and microbiology Laboratory Tests 01/22/24 06:19 Test 01/22/24 06:19 Range/Units Serum Glucose 167 H 74-106 mg/dL Problem List/Assessment/Plan Problem List/Assessment/Plan stemi cad HTn HL DM ckd s/p pci to RCA 2 nasim placed recommend outpt fu and pci in 4-6 weeks pt will see dr barrios in 1-2 weeks Plan discussed with: Patient Date of Service: Jan 22, 2024 Billing Provider: TANVIR PATTERSON MD Common Visit Codes: NOT BILLABLE TANVIR PATTERSON MD Jan 22, 2024 12:58
--- NOTE | 2024-01-22 13:03 | DVHPN2 ---
Progress Note Date Seen: Jan 22, 2024 Medical Necessity Reason Pt with a Central, PICC or Fol: No Subjective Patient reports: No new complaints Review of Systems: HEENT:Normal, CVS:Normal, RESPIRATORY:Normal, GI:Normal, :Normal, MSK:Normal, NEURO:Normal Objective vital signs Vital Sign Date Time Temp Pulse Resp B/P (MAP) Pulse Ox O2 Delivery O2 Flow Rate FiO2 01/22/24 09:44 138/73 01/22/24 09:43 62 01/22/24 09:00 98.2 18 97 98.2 01/22/24 08:00 Room Air* 0 21 Total Intake and Output 01/21/24 01/21/24 01/22/24 15:00 23:00 07:00 Intake Total 500 ml 350 ml Output Total 400 ml 300 ml Balance 100 ml 50 ml medications Current Medications Medications Dose Ordered Sig/Meli Route Start Time Stop Time Status Last Admin Dose Admin Nitroglycerin 0.4 mg Q5MINP PRN SL 01/21/24 07:30 Morphine Sulfate 2 mg Q30M PRN IV 01/21/24 07:30 Aspirin 81 mg DAILY PO 01/22/24 10:00 Clopidogrel Bisulfate 75 mg DAILY PO 01/22/24 10:00 01/22/24 09:46 75 MG Diagnostic Test (Pha) 1 strip ACHS 01/21/24 17:00 01/22/24 11:49 1 STRIP Insulin Human Regular ACHS SC 01/21/24 17:00 01/22/24 11:53 4 UNITS Dextrose 50 ml UD PRN IV 01/21/24 12:00 Atorvastatin Calcium 40 mg HS PO 01/21/24 22:00 01/21/24 21:55 40 MG Metoprolol Tartrate 25 mg BID PO 01/21/24 22:00 01/22/24 09:43 25 MG Amlodipine Besylate 10 mg DAILY PO 01/22/24 10:00 01/22/24 09:44 10 MG Acetaminophen/ Hydrocodone Bitart 1 tab Q6HP PRN PO 01/21/24 12:00 01/22/24 04:07 1 TAB Ondansetron HCl 4 mg Q6HPRN PRN IV 01/21/24 12:00 Acetaminophen 650 mg Q6HP PRN PO 01/21/24 12:00 12/16/24 17:45 650 MG Examination: GENERAL:Normal, HEENT:Normal, NECK:Normal, LUNGS:Normal, CVS:Normal, ABDOMEN:Normal, MSK:Normal, SKIN:Normal, NEURO:Normal, :Normal laboratory and microbiology Laboratory Tests 01/22/24 06:19 Test 01/22/24 06:19 Range/Units Serum Glucose 167 H 74-106 mg/dL Problem List/Assessment/Plan Problem List/Assessment/Plan #1 acute mi s/p stents: asa, plavix, lipitor #2 htn: lopressor, norvasc #3 dm: ssi #4 obesity #5 peripheral neuropathy #6 acute systolic/diastolic heart failure: lasix iv #7 ckd stage 3b: usg, ua #9 left renal hydronephrosis: urology consult #10 bph: flomax full code for now, will re evaluate code status-time spetn 19 mins Plan discussed with: Patient My Orders My Orders Orders - TEMI CRENSHAW MD Procedure Category Date Status Time Tamsulosin PHA 01/22/24 Transmitted Hydrochloride (Flomax) 13:00 Tamsulosin PHA 01/22/24 Transmitted Hydrochloride (Flomax) 18:00 * Urology Consult CONS 01/22/24 Transmitted 12:52 Basic Metabolic Panel LAB 01/23/24 Verified 06:00 Date of Service: Jan 22, 2024 Billing Provider: TMEI CRENSHAW MD Common Visit Codes: [id number] INP/OBS CARE(HIGH) Secondary Visit Codes: [id number] CARE PLAN 30 MINUTES TEMI CRENSHAW MD Jan 22, 2024 13:02
[2024-01-22] MEDS: TAMSULOSIN HYDROCHLORIDE 0.4 MG CAP PO ONE (13:31)
[2024-01-22] MEDS: FUROSEMIDE 20 MG/2 ML VIAL IV ONE (13:31)
--- NOTE | 2024-01-22 13:33 | DVHINCON2 ---
Date of service: Jan 22, 2024 Referring Physician Hospitalist Reason for Consultation Left hydronephrosis History of Present Illness Patient is admitted for STEMI. Renal ultrasound shows left hydronephrosis without any evidence of stone. You will undergo a Mag 3 renal scan with Lasix washout to confirm obstructive uropathy. Patient has history of urolithiasis and has undergone lithotripy in 2019. Past Medical History CAD Kidney stones Past Surgical History PTCA Lithotripsy Family History: Patient reports no known family medical history. Allergies: Coded Allergies: NO KNOWN ALLERGIES (Unverified , 10/13/20) Home Meds Active Scripts Hydrocodone-Acetaminophen (Hydrocodone Bitartrate/AC 10-325 mg) 1 Tab Tab, 1 TAB PO BID, #12 TAB Prov:DAVONTE PICHARDO 04/28/23 Reported Medications Insulin Glargine-Yfgn (Insulin Glargine) 100 Unit/Ml Inj, 60 UNIT SC DAILY, INJ 01/22/24 Methocarbamol (Methocarbamol) 500 Mg Tab, 500 MG PO PRN for muscle spasms for 30 Days, MG 01/22/24 Amlodipine Besylate-Atorvastat (Amlodipine Besylate/Atorv 5-20 mg) 1 Tab Tab, 1 TAB PO, TAB 10/14/20 Liraglutide (Victoza) 18 Mg/3 Ml Inj, 1.8 MG SUBCUT DAILY, #9 ML 3 Refills 10/14/20 Insulin Aspart Protamine & Asp (Insulin Aspart Protamine/ (70-30) 100 Unit/ml) 1 Inj Inj, 10 INJ SC, INJ 10/14/20 Current Medications Current Medications Medications (Trade) Dose Ordered Sig/Meli Route PRN Reason Start Time Stop Time Status Last Admin Aspirin 81 mg DAILY PO 01/22/24 10:00 Clopidogrel Bisulfate (Plavix) 75 mg DAILY PO 01/22/24 10:00 01/22/24 09:46 Diagnostic Test (Pha) (Accu-Chek Comfort Curve T) 1 strip ACHS 01/21/24 17:00 01/22/24 11:49 Insulin Human Regular (InsuLIN R) ACHS SC 01/21/24 17:00 01/22/24 11:53 Atorvastatin Calcium (Lipitor) 40 mg HS PO 01/21/24 22:00 01/21/24 21:55 Metoprolol Tartrate (Lopressor Tablet) 25 mg BID PO 01/21/24 22:00 01/22/24 09:43 Amlodipine Besylate (Norvasc Tablet) 10 mg DAILY PO 01/22/24 10:00 01/22/24 09:44 Tamsulosin HCl (Flomax) 0.4 mg QPM PO 01/22/24 18:00 Review of Systems Denies any flank pain Vital Signs Vital Signs Date Time Temp Pulse Resp B/P (MAP) Pulse Ox O2 Delivery O2 Flow Rate FiO2 01/22/24 09:44 138/73 01/22/24 09:43 62 01/22/24 09:00 98.2 18 97 98.2 01/22/24 08:00 Room Air* 0 21 Physical Exam NAD Labs/Diagnostic Data Labs Test 01/22/24 11:45 01/22/24 06:19 01/21/24 14:16 01/21/24 05:26 Range/Units POC Glucose 214 H 70-106 mg/dl White Blood Count 9.3 4.4-10.8 10^3/uL Red Blood Count 5.00 4.5-5.90 10^6/uL Hemoglobin 14.0 13.5-17.5 g/dL Hematocrit 41.7 41.0-53.0 % Mean Corpuscular Volume 83.4 80.0-100.0 fL Mean Corpuscular Hemoglobin 27.9 L 28.0-32.0 pg Mean Corpuscular Hemoglobin Concent 33.5 32.0-36.0 g/dL Red Cell Distribution Width 16.5 H 11.8-14.3 % Platelet Count 229 140-450 10^3/uL Mean Platelet Volume 8.3 6.9-10.8 fL Neutrophils (%) (Auto) 60.9 37.0-80.0 % Lymphocytes (%) (Auto) 27.9 10.0-50.0 % Monocytes (%) (Auto) 6.9 0.0-12.0 % Eosinophils (%) (Auto) 3.4 0.0-7.0 % Basophils (%) (Auto) 0.9 0.0-2.0 % Neutrophils # (Auto) 5.7 1.6-8.6 10 ^3/uL Lymphocytes # (Auto) 2.6 0.4-5.4 10 ^3/uL Monocytes # (Auto) 0.6 0-1.3 10 ^3/uL Eosinophils # (Auto) 0.3 0-0.8 10 ^3/uL Basophils # (Auto) 0.1 0-0.2 10 ^3/uL Nucleated Red Blood Cells 0.1 % Sodium Level 139 136-145 mmol/L Potassium Level 4.3 3.5-5.1 mmol/L Chloride Level 108 H 98-107 mmol/L Carbon Dioxide Level 24 20-31 mmol/L Anion Gap 7 5-15 Blood Urea Nitrogen 26 H 9-23 mg/dL Creatinine 1.86 H 0.700-1.30 mg/dL Glomerular Filtration Rate Calc 37 >90 mL/min BUN/Creatinine Ratio 14.0 10.0-20.0 Serum Glucose 167 H 74-106 mg/dL Hemoglobin A1c 9.3 H <5.7 % A1C Calcium Level 9.1 8.7-10.4 mg/dL Total Bilirubin 0.6 0.2-1.0 mg/dL Aspartate Amino Transferase (AST) 85 H 13-40 U/L Alanine Aminotransferase (ALT) 19 7-40 U/L Alkaline Phosphatase 57 46-116 U/L Total Protein 6.2 5.7-8.2 g/dL Albumin 3.3 3.2-4.8 g/dL Triglycerides Level 235 H < 150 mg/dL Cholesterol Level 196 < 200 mg/dL LDL Cholesterol 122 H < 100 mg/dL HDL Cholesterol 35 L 40-59 mg/dL Troponin I High Sensitivity > 48749 *H </=54 ng/L Lactic Acid Level 1.4 0.4-2.0 mmol/L Test 01/21/24 05:19 Range/Units Prothrombin Time 10.3 9.3-11.8 sec Prothrombin Time INR 0.97 0.9-1.15 Activated Partial Thromboplast Time 27.1 24.5-34.5 SEC B-Type Natriuretic Peptide 31.96 0-100 pg/mL PATIENT: ENOCH KELLEY ACCT: [id number] UNIT: [id number] : 1950 [facility]GE / SEX: 74 / M ADM STATUS: ADM IN SERVICE 1149 ORDERING PHYSICIAN: TEMI CRENSHAW MD PROCEDURE(s): KIDUS - KIDNEY REASON: renal failure ORDER NUMBER(s): [id number], ACCESSION NUMBER(s): [id number] RENAL ULTRASOUND CLINICAL HISTORY: renal failure TECHNIQUE: Multiple ultrasound images of the kidneys and bladder were obtained. COMPARISON: None FINDINGS: The right kidney measures 12.6 cm in length. The left kidney measures 13.5 cm. There is left renal hydronephrosis. There is no sonographic evidence of nephrolithiasis. Bladder appears within normal limits with prevoid volume measuring 383 cc. IMPRESSION: 1. Left renal hydronephrosis. There is no sonographic evidence of nephrolithiasis. HS:Y ATED BY: DARIEN JIMENEZ MD DICTATED DATE/TIME: 01/21/241326 SIGNED BY: DARIEN JIMENEZ MD SIGNED DATE/TIME: 01/21/24 132 CC: Assessment Left renal hydronephrosis on ultrasound Renal insufficiency History of kidney stones Plan/Recommendation Mag3 renal scan with split renal function and Lasix washout to confirm obstructive uropathy Plan discussed with: Patient, Other LEO GREGORY MD Jan 22, 2024 13:33
[2024-01-22] MEDS: TAMSULOSIN HYDROCHLORIDE 0.4 MG CAP PO SCH (19:25)
[2024-01-22 23:51] LABS: Urine Bacteria FEW /hpf (None Seen); Urine Blood 1+ /uL (Negative); Urine Clarity Turbid (Clear); Urine Color Colorless (Yellow); Urine Protein, UAD 3+ (Negative); Urine Specific Gravity 1.014 (1.001-1.035); Urine Urobilinogen Normal (Negative); Urine WBC 668 /hpf (0 - 3)
[2024-01-23] VITALS (8 sets, daily range): BP systolic 114–155; BP diastolic 52–81; PULSE 60–105; RESP 17–19; TEMP 97.8–98.2; O2SAT 94–98
[2024-01-23 06:59] LABS: Chloride 104 mmol/L (98-107); Potassium 4.5 mmol/L (3.5-5.1)
[2024-01-23 07:00] LABS: Anion Gap 9 (5-15); Carbon Dioxide 22 mmol/L (20-31)
[2024-01-23 07:01] LABS: Calcium 9.4 mg/dL (8.7-10.4)
[2024-01-23 07:05] LABS: Sodium 135 mmol/L (136-145)
[2024-01-23 07:18] LABS: Glucose 232 mg/dL (74-106)
[2024-01-23 07:44] LABS: Blood Urea Nitrogen 34 mg/dL (9-23)
[2024-01-23] MEDS: FUROSEMIDE 40 MG/4 ML VIAL IV ONE (08:12)
--- NOTE | 2024-01-23 11:39 | DVHPN2 ---
Progress Note Date Seen: Jan 23, 2024 Medical Necessity Reason Pt with a Central, PICC or Fol: No Subjective Patient reports: Feels better Objective vital signs Vital Sign Date Time Temp Pulse Resp B/P (MAP) Pulse Ox O2 Delivery O2 Flow Rate FiO2 01/23/24 09:06 143/81 01/23/24 09:06 66 01/23/24 09:00 98.1 19 97 98.1 01/23/24 08:00 Room Air* 0 21 Total Intake and Output 01/22/24 01/22/24 01/23/24 15:00 23:00 07:00 Intake Total 300 ml 800 ml Output Total 1175 ml Balance 300 ml -375 ml medications Current Medications Medications Dose Ordered Sig/Meli Route Start Time Stop Time Status Last Admin Dose Admin Nitroglycerin 0.4 mg Q5MINP PRN SL 01/21/24 07:30 Morphine Sulfate 2 mg Q30M PRN IV 01/21/24 07:30 Aspirin 81 mg DAILY PO 01/22/24 10:00 01/23/24 09:05 81 MG Clopidogrel Bisulfate 75 mg DAILY PO 01/22/24 10:00 01/23/24 09:05 75 MG Diagnostic Test (Pha) 1 strip ACHS 01/21/24 17:00 01/23/24 06:18 1 STRIP Insulin Human Regular ACHS SC 01/21/24 17:00 01/23/24 06:28 6 UNITS Dextrose 50 ml UD PRN IV 01/21/24 12:00 Atorvastatin Calcium 40 mg HS PO 01/21/24 22:00 01/22/24 22:08 40 MG Metoprolol Tartrate 25 mg BID PO 01/21/24 22:00 01/23/24 09:06 25 MG Amlodipine Besylate 10 mg DAILY PO 01/22/24 10:00 01/23/24 09:06 10 MG Acetaminophen/ Hydrocodone Bitart 1 tab Q6HP PRN PO 01/21/24 12:00 01/23/24 02:49 1 TAB Ondansetron HCl 4 mg Q6HPRN PRN IV 01/21/24 12:00 Acetaminophen 650 mg Q6HP PRN PO 01/21/24 12:00 01/21/24 17:45 650 MG Tamsulosin HCl 0.4 mg QPM PO 01/22/24 18:00 01/22/24 19:25 0.4 MG Examination: GENERAL:Abnormal, HEENT:Abnormal, LUNGS:Abnormal, CVS:Abnormal, ABDOMEN:Abnormal laboratory and microbiology Laboratory Tests 01/23/24 05:20 01/22/24 06:19 Test 01/23/24 05:20 Range/Units Serum Glucose 232 H 74-106 mg/dL Problem List/Assessment/Plan Problem List/Assessment/Plan stemi cad HTn HL DM ckd s/p pci to RCA 2 nasim placed recommend outpt fu and pci in 4-6 weeks pt will see dr barrios in 1-2 weeks Plan discussed with: Patient Date of Service: Jan 23, 2024 Billing Provider: TANVIR PATTERSON MD Common Visit Codes: NOT BILLABLE TANVIR PATTERSON MD Jan 23, 2024 11:39
--- NOTE | 2024-01-23 13:16 | DVH ---
EXAM: NM NM MAG3 RENAL SCAN DATE OF SERVICE: 01/23/2024 07:29 AM ORDERING PHYSICIAN: JOAN CRENSHAW REASON FOR EXAM: left hydronephrosis TECHNIQUE: During the injection of radiopharmaceutical, posterior flow images of the kidneys were ac quired immediately at one frame per second for one minute, immediately followed by posterior imaging at 30 seconds per frame for 30 minutes. Approximately 20 minutes after the radiopharmaceutical admini stration, the indicated dose of lasix was administered. Regions of interest were drawn around the kid neys and time activity curves were generated. Differential function was calculated. COMPARISON: None FINDINGS: Blood flow images demonstrate prompt and symmetric flow to the right kidney with no focal defects. Th ere is delayed flow to the left kidney. Functional images demonstrate a cortical transit time ([id number]) of 6.3 on the right and 19.3 on the left (normal is < 6 minutes). There is no adequate spontaneous excretion from the kidneys. Differential function (uptake %) is 76.2 % by the right kidney and 23.8 % by the left kidney. After Lasix administration, there was adequate and prompt excretion from both collecting systems. The post-Lasix half-emptying time (diuretic T1/2) was 11.5 minutes on the right and 357.9 minutes on the left. IMPRESSION: 1. Unremarkable perfusion of the right kidney which responds to the diuretic, suggestive of a functio nal obstruction. 2. Delayed blood flow with a prolonged diuretic half emptying time and minimal response to the diuret ic is suggestive of partial obstruction. 3. Differential renal function (uptake percent) of 76.2 % by the right kidney and 23.8 % by the left.
--- NOTE | 2024-01-23 16:12 | DVHPN2 ---
Progress Note Date Seen: Jan 23, 2024 Medical Necessity Reason Pt with a Central, PICC or Fol: No Subjective Patient reports: No new complaints Review of Systems: HEENT:Normal, CVS:Normal, RESPIRATORY:Normal, GI:Normal, :Normal, MSK:Normal, NEURO:Normal Objective vital signs Vital Sign Date Time Temp Pulse Resp B/P (MAP) Pulse Ox O2 Delivery O2 Flow Rate FiO2 01/23/24 13:00 98.1 105 18 155/75 (101) 98 98.1 01/23/24 08:00 Room Air* 0 21 Total Intake and Output 01/22/24 01/22/24 01/23/24 15:00 23:00 07:00 Intake Total 300 ml 800 ml Output Total 1175 ml Balance 300 ml -375 ml medications Current Medications Medications Dose Ordered Sig/Meli Route Start Time Stop Time Status Last Admin Dose Admin Nitroglycerin 0.4 mg Q5MINP PRN SL 01/21/24 07:30 Morphine Sulfate 2 mg Q30M PRN IV 01/21/24 07:30 Aspirin 81 mg DAILY PO 01/22/24 10:00 01/23/24 09:05 81 MG Clopidogrel Bisulfate 75 mg DAILY PO 01/22/24 10:00 01/23/24 09:05 75 MG Diagnostic Test (Pha) 1 strip ACHS 01/21/24 17:00 01/23/24 11:59 1 STRIP Insulin Human Regular ACHS SC 01/21/24 17:00 01/23/24 12:11 6 UNITS Dextrose 50 ml UD PRN IV 01/21/24 12:00 Atorvastatin Calcium 40 mg HS PO 01/21/24 22:00 01/22/24 22:08 40 MG Metoprolol Tartrate 25 mg BID PO 01/21/24 22:00 01/23/24 09:06 25 MG Amlodipine Besylate 10 mg DAILY PO 01/22/24 10:00 01/23/24 09:06 10 MG Acetaminophen/ Hydrocodone Bitart 1 tab Q6HP PRN PO 01/21/24 12:00 01/23/24 02:49 1 TAB Ondansetron HCl 4 mg Q6HPRN PRN IV 01/21/24 12:00 Acetaminophen 650 mg Q6HP PRN PO 01/21/24 12:00 01/21/24 17:45 650 MG Tamsulosin HCl 0.4 mg QPM PO 01/22/24 18:00 01/22/24 19:25 0.4 MG Examination: GENERAL:Normal, HEENT:Normal, NECK:Normal, LUNGS:Normal, CVS:Normal, ABDOMEN:Normal, MSK:Normal, SKIN:Normal, NEURO:Normal, :Normal laboratory and microbiology Laboratory Tests 01/23/24 05:20 01/22/24 06:19 Test 01/23/24 05:20 Range/Units Serum Glucose 232 H 74-106 mg/dL Problem List/Assessment/Plan Problem List/Assessment/Plan #1 acute mi s/p stents: asa, plavix, lipitor #2 htn: lopressor, norvasc #3 dm: ssi #4 obesity #5 peripheral neuropathy #6 acute systolic/diastolic heart failure: lasix iv #7 ckd stage 3b: usg, ua #9 left renal hydronephrosis: renal scan, inform dr moses #10 bph: flomax #11 uti: culture, iv rocephin full code for now, will re evaluate code status-time spetn 19 mins Plan discussed with: Patient Date of Service: Jan 23, 2024 Billing Provider: TEMI CRENSHAW MD Common Visit Codes: [id number] INP/OBS CARE(HIGH) TEMI CRENSHAW MD Jan 23, 2024 16:12
[2024-01-23] MEDS: cefTRIAXone 1GM/50ML D5W 50 ML IV ONE (16:37)
[2024-01-24] VITALS (9 sets, daily range): BP systolic 84–129; BP diastolic 25–77; PULSE 65–89; RESP 18–20; TEMP 36.7; O2SAT 94–97
[2024-01-24 07:17] LABS: Calcium 9.6 mg/dL (8.7-10.4); Chloride 103 mmol/L (98-107); Potassium 4.6 mmol/L (3.5-5.1)
[2024-01-24 07:18] LABS: Anion Gap 7 (5-15); Carbon Dioxide 24 mmol/L (20-31)
[2024-01-24 07:22] LABS: Sodium 134 mmol/L (136-145)
[2024-01-24 07:23] LABS: BUN/Creatinine Ratio 16.7 (10.0-20.0)
[2024-01-24 07:25] LABS: Blood Urea Nitrogen 42 mg/dL (9-23); Glucose 192 mg/dL (74-106)
[2024-01-24] MEDS: cefTRIAXone 1GM/50ML D5W 50 ML IV SCH (08:44)
--- NOTE | 2024-01-24 09:26 | DVHPN2 ---
Progress Note - Dictate Date Seen: Jan 24, 2024 Medical Necessity Reason Pt with a Central, PICC or Fol: No Medical Necessity Reason Mild right hydronephrosis Subjective He denies any flank pain vital signs Vital Sign Date Time Temp Pulse Resp B/P (MAP) Pulse Ox O2 Delivery O2 Flow Rate FiO2 01/24/24 08:46 101/77 01/24/24 08:45 80 01/24/24 05:00 97.7 18 97 97.7 01/23/24 20:00 Room Air* 0 21 Total Intake and Output 01/23/24 01/23/24 01/24/24 15:00 23:00 07:00 Intake Total 1250 ml 800 ml Output Total 700 ml 900 ml Balance 550 ml -100 ml medications Current Medications Medications Dose Ordered Sig/Meli Route Start Time Stop Time Status Last Admin Dose Admin Nitroglycerin 0.4 mg Q5MINP PRN SL 01/21/24 07:30 Morphine Sulfate 2 mg Q30M PRN IV 01/21/24 07:30 Aspirin 81 mg DAILY PO 01/22/24 10:00 01/24/24 08:44 81 MG Clopidogrel Bisulfate 75 mg DAILY PO 01/22/24 10:00 01/24/24 08:45 75 MG Diagnostic Test (Pha) 1 strip ACHS 01/21/24 17:00 01/24/24 06:11 1 STRIP Insulin Human Regular ACHS SC 01/21/24 17:00 01/24/24 06:20 4 UNITS Dextrose 50 ml UD PRN IV 01/21/24 12:00 Atorvastatin Calcium 40 mg HS PO 01/21/24 22:00 01/23/24 22:24 40 MG Metoprolol Tartrate 25 mg BID PO 01/21/24 22:00 01/24/24 08:45 25 MG Amlodipine Besylate 10 mg DAILY PO 01/22/24 10:00 01/24/24 08:46 10 MG Acetaminophen/ Hydrocodone Bitart 1 tab Q6HP PRN PO 01/21/24 12:00 01/24/24 06:29 1 TAB Ondansetron HCl 4 mg Q6HPRN PRN IV 01/21/24 12:00 Acetaminophen 650 mg Q6HP PRN PO 01/21/24 12:00 01/21/24 17:45 650 MG Tamsulosin HCl 0.4 mg QPM PO 01/22/24 18:00 01/23/24 17:36 0.4 MG Ceftriaxone Sodium 50 ml @ 100 mls/hr DAILY@09 IV 01/24/24 09:00 01/24/24 08:44 100 MLS/HR objective Mag three renal scan shows 24% right renal function with mild obstruction. laboratory and microbiology Laboratory Tests 01/24/24 06:00 01/22/24 06:19 Test 01/24/24 06:00 Range/Units Serum Glucose 192 H 74-106 mg/dL Problem List Chronic kidney disease Right hydronephrosis with obstructive uropathy Assessment/Plan Left renal hydronephrosis on ultrasound Renal insufficiency History of kidney stones Conservative management for now. Will await three months following his STEMI and cardiac stent placement for re-evaluation of his right hydronephrosis. We will likely repeat Mag three renal scan in three months. If renal function deteriorates further, we will consider intervention. He is renal function of 24% is somewhat and a borderline of low to nonfunctional kidney. This should not affect his overall kidney function as his left kidney would compensate. Plan discussed with: Patient, Other LEO GREGORY MD Jan 24, 2024 09:26
--- NOTE | 2024-01-24 14:54 | DVHDS2 ---
Discharge Summary Date of Admission Jan 21, 2024 at 07:17 Date of Discharge: Jan 24, 2024 Labs/Diagnostic Data: Laboratory Results Test 01/24/24 06:00 01/23/24 16:49 01/22/24 22:25 01/22/24 06:19 Sodium Level 134 mmol/L (136-145) Potassium Level 4.6 mmol/L (3.5-5.1) Chloride Level 103 mmol/L (98-107) Carbon Dioxide Level 24 mmol/L (20-31) Anion Gap 7 (5-15) Blood Urea Nitrogen 42 mg/dL (9-23) Creatinine 2.52 mg/dL (0.700-1.30) Glomerular Filtration Rate Calc 26 mL/min (>90) BUN/Creatinine Ratio 16.7 (10.0-20.0) Serum Glucose 192 mg/dL (74-106) Calcium Level 9.6 mg/dL (8.7-10.4) POC Glucose 223 mg/dl (70-106) Urine Color Colorless (Yellow) Urine Clarity Turbid (Clear) Urine pH 6.0 (5.0-9.0) Urine Specific [place] 1.014 (1.001-1.035) Urine Protein 3+ (Negative) Urine Ketones Negative (Negative) Urine Blood 1+ /uL (Negative) Urine Nitrite 2+ (Negative) Urine Bilirubin Negative (Negative) Urine Urobilinogen Normal mg/dL (Negative) Urine Leukocyte Esterase 3+ /uL (Negative) Urine RBC 39 /hpf (0 - 3) Urine WBC 668 /hpf (0 - 3) Urine Squamous Epithelial Cells None seen /hpf (<5) Urine Bacteria Few /hpf (None Seen) Urine Glucose 2+ mg/dL (Normal) White Blood Count 9.3 10^3/uL (4.4-10.8) Red Blood Count 5.00 10^6/uL (4.5-5.90) Hemoglobin 14.0 g/dL (13.5-17.5) Hematocrit 41.7 % (41.0-53.0) Mean Corpuscular Volume 83.4 fL (80.0-100.0) Mean Corpuscular Hemoglobin 27.9 pg (28.0-32.0) Mean Corpuscular Hemoglobin Concent 33.5 g/dL (32.0-36.0) Red Cell Distribution Width 16.5 % (11.8-14.3) Platelet Count 229 10^3/uL (140-450) Mean Platelet Volume 8.3 fL (6.9-10.8) Neutrophils (%) (Auto) 60.9 % (37.0-80.0) Lymphocytes (%) (Auto) 27.9 % (10.0-50.0) Monocytes (%) (Auto) 6.9 % (0.0-12.0) Eosinophils (%) (Auto) 3.4 % (0.0-7.0) Basophils (%) (Auto) 0.9 % (0.0-2.0) Neutrophils # (Auto) 5.7 10 ^3/uL (1.6-8.6) Lymphocytes # (Auto) 2.6 10 ^3/uL (0.4-5.4) Monocytes # (Auto) 0.6 10 ^3/uL (0-1.3) Eosinophils # (Auto) 0.3 10 ^3/uL (0-0.8) Basophils # (Auto) 0.1 10 ^3/uL (0-0.2) Nucleated Red Blood Cells 0.1 % Hemoglobin A1c 9.3 % A1C (<5.7) Total Bilirubin 0.6 mg/dL (0.2-1.0) Aspartate Amino Transferase (AST) 85 U/L (13-40) Alanine Aminotransferase (ALT) 19 U/L (7-40) Alkaline Phosphatase 57 U/L (46-116) Total Protein 6.2 g/dL (5.7-8.2) Albumin 3.3 g/dL (3.2-4.8) Triglycerides Level 235 mg/dL (< 150) Cholesterol Level 196 mg/dL (< 200) LDL Cholesterol 122 mg/dL (< 100) HDL Cholesterol 35 mg/dL (40-59) Test 01/21/24 14:16 01/21/24 05:26 01/21/24 05:19 Troponin I High Sensitivity > 63649 ng/L (</=54) Lactic Acid Level 1.4 mmol/L (0.4-2.0) Prothrombin Time 10.3 sec (9.3-11.8) Prothrombin Time INR 0.97 (0.9-1.15) Activated Partial Thromboplast Time 27.1 SEC (24.5-34.5) B-Type Natriuretic Peptide 31.96 pg/mL (0-100) Other Laboratory Tests 01/24/24 06:00 01/22/24 06:19 Brief Hx & Hospital Course: see dictated note Condition at Discharge: Fair Final Diagnosis/Problems List cad Discharge Disposition: Home Discharge Instruct/Medications Diet: Cardiac 2g Na,low cholest Activity: No Restrictions, As Tolerated Follow Up/Referral: fu with dr Pizarro and dr Santos Medications: resume home meds Discharge Statement: "Patient was advised to return to the ER or call 911 if any headaches, dizziness, shortness of breath, chest pain, abdominal pain, bleeding, fevers, or worsening of medical condition. Patient was counseled about treatment plan, medications, possible side effects, patientverbalized understanding. All questions were answered to the best of my ability. This discharge took greater then 30 minutes in planning, reviewing documentation, counseling the patient, and discussing with other team members." ASSESSMENT ASSESSMENT Assessment cad Date of Service: Jan 24, 2024 Billing Provider: TEMI CRENSHAW MD Common Visit Codes: [id number] DISCH DAY >30min TEMI CRENSHAW MD Jan 24, 2024 14:54
[2024-01-24] MEDS ORDERED: ASPI1TAB20 PO (14:56)
[2024-01-24] MEDS ORDERED: CLOP75TA28 PO (14:56)
--- NOTE | 2024-01-24 15:07 | DVHHP2 ---
Review of Systems Allergies: Coded Allergies: NO KNOWN ALLERGIES (Unverified , 10/13/20) Medications Current Medications Medications Dose Ordered Sig/Meli Route Start Time Stop Time Status Last Admin Dose Admin Nitroglycerin 0.4 mg Q5MINP PRN SL 01/21/24 07:30 Morphine Sulfate 2 mg Q30M PRN IV 01/21/24 07:30 Aspirin 81 mg DAILY PO 01/22/24 10:00 01/24/24 08:44 81 MG Clopidogrel Bisulfate 75 mg DAILY PO 01/22/24 10:00 01/24/24 08:45 75 MG Diagnostic Test (Pha) 1 strip ACHS 01/21/24 17:00 01/24/24 11:24 1 STRIP Insulin Human Regular ACHS SC 01/21/24 17:00 01/24/24 11:25 6 UNITS Dextrose 50 ml UD PRN IV 01/21/24 12:00 Atorvastatin Calcium 40 mg HS PO 01/21/24 22:00 01/23/24 22:24 40 MG Metoprolol Tartrate 25 mg BID PO 01/21/24 22:00 01/24/24 08:45 25 MG Amlodipine Besylate 10 mg DAILY PO 01/22/24 10:00 01/24/24 08:46 10 MG Acetaminophen/ Hydrocodone Bitart 1 tab Q6HP PRN PO 01/21/24 12:00 01/24/24 06:29 1 TAB Ondansetron HCl 4 mg Q6HPRN PRN IV 01/21/24 12:00 Acetaminophen 650 mg Q6HP PRN PO 01/21/24 12:00 01/21/24 17:45 650 MG Tamsulosin HCl 0.4 mg QPM PO 01/22/24 18:00 01/23/24 17:36 0.4 MG Ceftriaxone Sodium 50 ml @ 100 mls/hr DAILY@09 IV 01/24/24 09:00 01/24/24 08:44 100 MLS/HR Exam Vital Signs Vital Signs Date Time Temp Pulse Resp B/P (MAP) Pulse Ox O2 Delivery O2 Flow Rate FiO2 01/24/24 13:00 98.0 65 18 124/68 (86) 96 98.0 01/24/24 08:00 Room Air* 0 21 Labs/Xrays Labs Test 01/24/24 06:00 01/23/24 16:49 01/22/24 22:25 01/22/24 06:19 Range/Units Sodium Level 134 L 136-145 mmol/L Potassium Level 4.6 3.5-5.1 mmol/L Chloride Level 103 98-107 mmol/L Carbon Dioxide Level 24 20-31 mmol/L Anion Gap 7 5-15 Blood Urea Nitrogen 42 H 9-23 mg/dL Creatinine 2.52 H 0.700-1.30 mg/dL Glomerular Filtration Rate Calc 26 >90 mL/min BUN/Creatinine Ratio 16.7 10.0-20.0 Serum Glucose 192 H 74-106 mg/dL Calcium Level 9.6 8.7-10.4 mg/dL POC Glucose 223 H 70-106 mg/dl Urine Color Colorless Yellow Urine Clarity Turbid H Clear Urine pH 6.0 5.0-9.0 Urine Specific [place] 1.014 1.001-1.035 Urine Protein 3+ H Negative Urine Ketones Negative Negative Urine Blood 1+ H Negative /uL Urine Nitrite 2+ H Negative Urine Bilirubin Negative Negative Urine Urobilinogen Normal Negative mg/dL Urine Leukocyte Esterase 3+ Negative /uL Urine RBC 39 0 - 3 /hpf Urine WBC 668 0 - 3 /hpf Urine Squamous Epithelial Cells None seen <5 /hpf Urine Bacteria Few H None Seen /hpf Urine Glucose 2+ H Normal mg/dL White Blood Count 9.3 4.4-10.8 10^3/uL Red Blood Count 5.00 4.5-5.90 10^6/uL Hemoglobin 14.0 13.5-17.5 g/dL Hematocrit 41.7 41.0-53.0 % Mean Corpuscular Volume 83.4 80.0-100.0 fL Mean Corpuscular Hemoglobin 27.9 L 28.0-32.0 pg Mean Corpuscular Hemoglobin Concent 33.5 32.0-36.0 g/dL Red Cell Distribution Width 16.5 H 11.8-14.3 % Platelet Count 229 140-450 10^3/uL Mean Platelet Volume 8.3 6.9-10.8 fL Neutrophils (%) (Auto) 60.9 37.0-80.0 % Lymphocytes (%) (Auto) 27.9 10.0-50.0 % Monocytes (%) (Auto) 6.9 0.0-12.0 % Eosinophils (%) (Auto) 3.4 0.0-7.0 % Basophils (%) (Auto) 0.9 0.0-2.0 % Neutrophils # (Auto) 5.7 1.6-8.6 10 ^3/uL Lymphocytes # (Auto) 2.6 0.4-5.4 10 ^3/uL Monocytes # (Auto) 0.6 0-1.3 10 ^3/uL Eosinophils # (Auto) 0.3 0-0.8 10 ^3/uL Basophils # (Auto) 0.1 0-0.2 10 ^3/uL Nucleated Red Blood Cells 0.1 % Hemoglobin A1c 9.3 H <5.7 % A1C Total Bilirubin 0.6 0.2-1.0 mg/dL Aspartate Amino Transferase (AST) 85 H 13-40 U/L Alanine Aminotransferase (ALT) 19 7-40 U/L Alkaline Phosphatase 57 46-116 U/L Total Protein 6.2 5.7-8.2 g/dL Albumin 3.3 3.2-4.8 g/dL Triglycerides Level 235 H < 150 mg/dL Cholesterol Level 196 < 200 mg/dL LDL Cholesterol 122 H < 100 mg/dL HDL Cholesterol 35 L 40-59 mg/dL Test 01/21/24 14:16 01/21/24 05:26 01/21/24 05:19 Range/Units Troponin I High Sensitivity > 49219 *H </=54 ng/L Lactic Acid Level 1.4 0.4-2.0 mmol/L Prothrombin Time 10.3 9.3-11.8 sec Prothrombin Time INR 0.97 0.9-1.15 Activated Partial Thromboplast Time 27.1 24.5-34.5 SEC B-Type Natriuretic Peptide 31.96 0-100 pg/mL Microbiology Date/Time Source Procedure Growth Status 01/23/24 17:03 Voided Urine Urine Culture - Preliminary Resulted Assessment/Plan Assessment/Plan see dictated note Plan discussed with: Patient My Orders Orders - TEMI CRENSHAW MD Procedure Category Date Status Time Urine Bacterial ALFRED 01/23/24 In Process Culture 16:07 Ceftriaxone 1gm/50ml PHA 01/24/24 In Process D5w (Rocephin) 09:00 Discharge DISCHARGE 01/24/24 Transmitted 14:51 Dietary NOTICE 01/24/24 Transmitted Recommendations 14:56 Date of Service: Jan 24, 2024 Billing Provider: TEMI CRENSHAW MD Common Visit Codes: 06868-[id number] INP/OBS CARE (HIGH) TEMI CRENSHAW MD Jan 24, 2024 15:07
--- NOTE | 2024-01-24 15:25 | DVHDS ---
DATE OF DISCHARGE: 01/24/2024 HISTORY OF PRESENT ILLNESS: The patient is a 74-year-old gentleman, who was initially admitted with complaints of chest pain; and has history of hypertension, diabetes mellitus, peripheral neuropathy, and chronic kidney disease. HOSPITAL COURSE: The patient underwent coronary angiography with subsequent PCI of the distal RCA. The patient needs a staged PCI to the circumflex. The patient had an echocardiogram done that showed an ejection fraction of 40 to 45%. The patient had a renal ultrasound, that showed evidence of left hydronephrosis. The patient was seen in Urology consult by Dr. Santos. The patient had a renal scan, that showed reduced function in the left kidney. The patient was also noted to have BPH. The patient's creatinine at time of discharge was 2.5. The patient will now be discharged home to resume his home medications as well as to be on aspirin 81 mg daily, Plavix 75 mg daily, Toprol XL 25 mg daily, Lipitor 40 mg at bedtime, and [place] p.r.n. for pain, as well as Flomax 0.4 mg daily. He will follow up with his primary as well as with Dr. Pizarro in the next 1 to 2 weeks. The patient also had a UTI with gram-negative rods, for which he will be given cefdinir 300 mg p.o. b.i.d. FINAL DIAGNOSES: Therefore, * Acute myocardial infarction, status post stents. * Hypertension. * Diabetes mellitus. * Obesity. * Peripheral neuropathy. * Acute systolic/diastolic heart failure. * Chronic kidney disease, stage IIIB. * Left renal hydronephrosis. * Benign prostatic hypertrophy. Time spent in discharge planning, and review of plan with the patient and nursing and consultant in ergonomics and safety was 39 minutes. MD GARRET Reynolds/TANESHA TID: [id number] RECEIPT: [id number]
--- NOTE | 2024-01-24 15:35 | DVHHP ---
ADMIT DATE: 01/24/2024 HISTORY OF PRESENT ILLNESS: The patient is a 74-year-old gentleman who was admitted with complaints of chest pain. He denies any nausea or shortness of breath and a code STEMI was called. The patient has previous history of hypertension and diabetes. PAST MEDICAL HISTORY: Significant for diabetes and hypertension. MEDICATIONS: He takes insulin along with amlodipine, Lipitor, and methocarbamol. ALLERGIES: No known drug allergies. SOCIAL HISTORY: No history of smoking or alcohol. FAMILY HISTORY: Negative. PHYSICAL EXAMINATION: GENERAL: The patient is awake, alert. VITAL SIGNS: Temperature 98.1, pulse 80 per minute, blood pressure 101/77. SHEENT: Unremarkable. NECK: There is no JVD, no pedal edema. LUNGS: Equal bilaterally. CARDIOVASCULAR: S1, S2 is regular. ABDOMEN: Soft. There is no organomegaly. NEUROLOGIC: Nonfocal. MUSCULOSKELETAL: Normal. ASSESSMENT AND PLAN: * Acute myocardial infarction, status post coronary angiography and stent placement. * Chronic kidney disease, stage 3. * Diabetes mellitus for which he was placed on a sliding scale insulin. * Hypertension. * Obesity. * Hyperlipidemia. * Chronic back pain. MD GARRET Reynolds/TERRIE TID: [id number] RECEIPT: [id number]
== END 2024-01-24 17:13 | disposition home or self-care (01) | DRG 321 ==
LOC: ER 05:11 → EDBD 05:11 → TELE 07:17 → EDUNIT# 07:17 → TELE-WESTW 12:36
PROVIDERS: ADMIT Internal Medicine; ATTEND Internal Medicine
PROC: 027035Z Dilation of Coronary Artery, One Artery with Two Drug-eluting Intraluminal Devices, Percutaneous Approach (ICD-10-PCS; principal; 2024-01-21)
PROC: 4A023N7 Measurement of Cardiac Sampling and Pressure, Left Heart, Percutaneous Approach (ICD-10-PCS; 2024-01-21)
PROC: B211YZZ Fluoroscopy of Multiple Coronary Arteries using Other Contrast (ICD-10-PCS; 2024-01-21)
DX: I21.19 ST elevation (STEMI) myocardial infarction involving other coronary artery of inferior wall (principal); I50.41 Acute combined systolic (congestive) and diastolic (congestive) heart failure; I13.0 Hypertensive heart and chronic kidney disease with heart failure and stage 1 through stage 4 chronic kidney disease, or unspecified chronic kidney disease; N13.6 Pyonephrosis; E66.9 Obesity, unspecified; N18.32 Chronic kidney disease, stage 3b; N40.0 Benign prostatic hyperplasia without lower urinary tract symptoms; E11.22 Type 2 diabetes mellitus with diabetic chronic kidney disease; E78.5 Hyperlipidemia, unspecified; G89.29 Other chronic pain; E11.42 Type 2 diabetes mellitus with diabetic polyneuropathy; B96.89 Other specified bacterial agents as the cause of diseases classified elsewhere; I25.10 Atherosclerotic heart disease of native coronary artery without angina pectoris; Z79.4 Long term (current) use of insulin; Z87.442 Personal history of urinary calculi; Z79.899 Other long term (current) drug therapy; Z68.29 Body mass index [BMI] 29.0-29.9, adult; Z79.02 Long term (current) use of antithrombotics/antiplatelets; Z79.82 Long term (current) use of aspirin
CPT/HCPCS: 36415; 71045; 76775; 78707; 80048; 80053; 80061; 81001; 82962; 83036; 83605; 83880; 84484; 85025; 85610; 85730; 87086; 92941; 93005; 93306; 93458; 96374; 99152; 99291; C1874; G0378; J1815; J2003; J2250; Q9967

== ENCOUNTER 2024-05-01 03:47 | Inpatient (IN) | payer OTHER ==
[~2024-05-01] VITALS: Ht 177.8 cm; Wt 134.7 kg
[~2024-05-01 03:47] MED LIST changes: +ASPI1TAB20 PO; +CLOP75TA28 PO; +INSU100I70 SC; +METH-1181 PO
--- NOTE | 2024-05-01 04:35 | ED.PDOC ---
GI ASSESSMENT HPI Comments 74 year old male brought in by EMS presents to the ED with a chief complaint of abdominal pain onset yesterday. Patient states she has been experiencing LLQ pain since yesterday, described as a sharp sensation. Patient has had kidney stones in the past, states pain is different. Takes Tylenol for pain, with slight improvement of symptoms. PMHx [place], DM. Denies nausea, vomiting, dysuria, hematuria, chest pain, fever, chills. No other symptoms or modifying factors present at this time. Chief Complaint: Abdominal Pain Time Seen by MD: 04:25 Primary Care Provider: [place] Reviewed Notes: Medications, Allergies Allergies: Coded Allergies: NO KNOWN ALLERGIES (Unverified , 10/13/20) Home Meds Active Scripts Aspirin (Aspir-81) 81 Mg Tab, 1 TAB PO DAILY PRN for 30 Days, #30 TAB 3 Refills Prov:TEMI CRENSHAW MD 01/24/24 Clopidogrel Bisulfate (Plavix) 75 Mg Tab, 75 MG PO DAILY for 30 Days, #30 TAB 3 Refills Prov:TEMI CRENSHAW MD 01/24/24 Hydrocodone-Acetaminophen (Hydrocodone Bitartrate/AC 10-325 mg) 1 Tab Tab, 1 TAB PO BID, #12 TAB Prov:DAVONTE PICHARDO 04/28/23 Reported Medications Insulin Glargine-Yfgn (Insulin Glargine) 100 Unit/Ml Inj, 60 UNIT SC DAILY, INJ 01/22/24 Methocarbamol (Methocarbamol) 500 Mg Tab, 500 MG PO PRN for muscle spasms for 30 Days, MG 01/22/24 Amlodipine Besylate-Atorvastat (Amlodipine Besylate/Atorv 5-20 mg) 1 Tab Tab, 1 TAB PO, TAB 10/14/20 Liraglutide (Victoza) 18 Mg/3 Ml Inj, 1.8 MG SUBCUT DAILY, #9 ML 3 Refills 10/14/20 Insulin Aspart Protamine & Asp (Insulin Aspart Protamine/ (70-30) 100 Unit/ml) 1 Inj Inj, 10 INJ SC, INJ 10/14/20 Information Source: Patient, Emergency Med Personnel Mode of Arrival: EMS Timing: Days Duration: Since onset Prehospital treatment: Pain Meds Quality: Sharp Vomitus: None Severity: Moderate Recent: None Recent Hx of: Diabetes Pain Location: LLQ Modifying Factors: Nothing Associated sign and symptoms: Abdominal Pain Past Medical History PAST MEDICAL HISTORY: DM, Kidney Stones, [place] Surgical History: Denies all surgeries Family History Family History: Unknown Social History Smoker: Non-Smoker Alcohol: Denies ETOH Use Drugs: Denies Drug Use Lives In: Home Constitutional: denies: chills, diaphoresis, fatigue, fever, malaise, sweats, weakness, others EENTM: denies: blurred vision, double vision, ear bleeding, ear discharge, ear drainage, ear pain, ear ringing, eye pain, eye redness, hearing loss, mouth pain, mouth swelling, nasal discharge, nose bleeding, nose congestion, nose pain, photophobia, tearing, throat pain, throat swelling, voice changes, others Respiratory: denies: cough, hemoptysis, orthopnea, SOB at rest, shortness of breath, SOB with excertion, stridor, wheezing, others Cardiovascular: denies: chest pain, dizzy spells, diaphoresis, Dyspnea on exertion, edema, irregular heart beat, left arm pain, lightheadedness, palpitations, PND, syncope, others Gastrointestinal: reports: abdominal pain (LLQ); denies: abdomen distended, blood streaked bowels, constipated, diarrhea, dysphagia, difficulty swallowing, hematemesis, melena, nausea, poor appetite, poor fluid intake, rectal bleeding, rectal pain, vomiting, others Genitourinary: denies: burning, dysuria, flank pain, frequency, hematuria, incontinence, penile discharge, penile sore, pain, testicle pain, testicle swelling, urgency, others Neurological: denies: dizziness, fainting, headache, left sided numbness, left sided weakness, numbness, paresthesia, pre-existing deficit, right sided numbness, right sided weakness, seizure, speech problems, tingling, tremors, weakness, others Musculoskeletal: denies: back pain, gout, joint pain, joint swelling, muscle pain, muscle stiffness, neck pain, others Integumetry: denies: bruises, change in color, change in hair/nails, dryness, laceration, lesions, lumps, rash, wounds, others Allergic/Immunocompromised: denies: Difficulty Healing, Frequent Infections, Hives, Itching, others Hematologic/Lymphatic: denies: anemia, blood clots, easy bleeding, easy bruising, swollen glands, others Endocrine: denies: excessive hunger, excessive sweating, excessive thirst, excessive urination, flushing, intolerance to cold, intolerance to heat, unexplained weight gain, unexplained weight loss, others Psychiatric: denies: anxiety, bipolar disorder, depression, hopeless, panic disorder, schizophrenia, sleepless, suicidal, others All Other Systems: Reviewed and Negative Physical Exam General Appearance: No Apparent Distress, Normal HEENT: Normal ENT Inspection, Pharynx Normal, TMs Normal Neck: Full Range of Motion, Non-Tender, Normal, Normal Inspection Respiratory: Chest Non-Tender, Lungs Clear, No Accessory Muscle Use, No Respiratory Distress, Normal Breath Sounds Cardiovascular: No Edema, No JVD, No Murmur, No Gallop, Normal Peripheral Pulses, Regular Rate/Rhythm Breast Exam: Deferred Gastrointestinal: No Organomegaly, Non Tender, No Pulsatile Mass, Normal Bowel Sounds, Soft Genitalia: Deferred Pelvic: Deferred Rectal: Deferred Extremities: No calf tenderness, Normal capillary refill, Normal inspection, Normal range of motion, Non-tender, No pedal edema Musculoskeletal : Apperance: Normal Neurologic: Alert, non linear editor II-XII nml as Tested, No Motor Deficits, Normal Affect, Normal Mood, No Sensory Deficits Cerebellar Function: Normal Reflexes: Normal Skin: Dry, Normal Color, Warm Lymphatic: No Adenopathy Was a procedure done? Was a procedure done?: No GI differential Dx Differential Diagnosis: AAA, Angina/[place], Bowel Obstruction, Cholangitis, Cholecystitis, Constipation, Esophageal rupture, Esophagitis, Gastritis/PUD, Gastroenteritis, GI hemorrhage, Pancreatitis, Diabetes/ DKA, Drug toxicity, Electrolyte Imbalance, Hypovolemia, Impaction, Malnutrition, Ischemic Bowel, Kidney Stone X-Ray, Labs, Meds, VS Vital Signs Date Time Temp Pulse Resp B/P (MAP) Pulse Ox O2 Delivery O2 Flow Rate FiO2 05/01/24 08:30 88 14 94 Room Air* 0 21 05/01/24 08:30 98.6 88 14 134/69 (90) 94 98.6 05/01/24 06:00 98.0 82 20 151/87 (108) 95 98.0 05/01/24 04:30 98.5 92 20 141/63 (89) 95 98.5 05/01/24 04:05 Room Air* 0 21 05/01/24 03:47 98.5 92 20 141/63 (89) 95 98.5 Lab Test 05/01/24 08:18 05/01/24 05:54 Range/Units Urine Color Light-orange Yellow Urine Clarity Ex.turbid Clear Urine pH 6.0 5.0-9.0 Urine Specific [place] 1.017 1.001-1.035 Urine Protein 3+ H Negative Urine Ketones Negative Negative Urine Blood 2+ H Negative /uL Urine Nitrite 1+ H Negative Urine Bilirubin Negative Negative Urine Urobilinogen Normal Negative mg/dL Urine Leukocyte Esterase 3+ Negative /uL Urine RBC 51 0 - 3 /hpf Urine WBC Clumps Present None Seen /hpf Urine Microscopic WBC 3789 H 0-3 /HPF Urine Squamous Epithelial Cells None seen <5 /hpf Urine Bacteria None seen None Seen /hpf Urine Hyaline Casts Mod 0 - 2 /lpf Urine Glucose 4+ H Normal mg/dL White Blood Count 12.2 H 4.4-10.8 10^3/uL Red Blood Count 4.19 L 4.5-5.90 10^6/uL Hemoglobin 11.7 L 13.5-17.5 g/dL Hematocrit 35.5 L 41.0-53.0 % Mean Corpuscular Volume 84.7 80.0-100.0 fL Mean Corpuscular Hemoglobin 27.9 L 28.0-32.0 pg Mean Corpuscular Hemoglobin Concent 33.0 32.0-36.0 g/dL Red Cell Distribution Width 14.7 H 11.8-14.3 % Platelet Count 239 140-450 10^3/uL Mean Platelet Volume 8.1 6.9-10.8 fL Neutrophils (%) (Auto) 74.4 37.0-80.0 % Lymphocytes (%) (Auto) 15.3 10.0-50.0 % Monocytes (%) (Auto) 9.0 0.0-12.0 % Eosinophils (%) (Auto) 0.7 0.0-7.0 % Basophils (%) (Auto) 0.6 0.0-2.0 % Neutrophils # (Auto) 9.1 H 1.6-8.6 10 ^3/uL Lymphocytes # (Auto) 1.9 0.4-5.4 10 ^3/uL Monocytes # (Auto) 1.1 0-1.3 10 ^3/uL Eosinophils # (Auto) 0.1 0-0.8 10 ^3/uL Basophils # (Auto) 0.1 0-0.2 10 ^3/uL Nucleated Red Blood Cells 0.1 % Sodium Level 138 136-145 mmol/L Potassium Level 4.2 3.5-5.1 mmol/L Chloride Level 108 H 98-107 mmol/L Carbon Dioxide Level 23 20-31 mmol/L Anion Gap 7 5-15 Blood Urea Nitrogen 40 H 9-23 mg/dL Creatinine 2.79 H 0.700-1.30 mg/dL Glomerular Filtration Rate Calc 23 >90 mL/min BUN/Creatinine Ratio 14.3 10.0-20.0 Serum Glucose 163 H 74-106 mg/dL Calcium Level 8.6 L 8.7-10.4 mg/dL Total Bilirubin 0.4 0.2-1.0 mg/dL Aspartate Amino Transferase (AST) < 8 L 13-40 U/L Alanine Aminotransferase (ALT) 9 7-40 U/L Alkaline Phosphatase 75 46-116 U/L Total Protein 6.7 5.7-8.2 g/dL Albumin 3.7 3.2-4.8 g/dL Lipase 32 12-53 U/L X-Ray, Labs, Meds, VS Comment Addendum by Dr. Mustafa: This 74-year-old male who presents secondary to abdominal pain. Here, he was noted to have a UA is positive for nitrites, upset hydronephrosis, and left-sided pyelonephritis on imaging and labs. Patient was given IV fluids, Zosyn 9 Flomax emergency room. He will be admitted further workup management of his multiple complaints. Time of 1ST Reevaluation: 04:55 Reevaluation 1ST: Unchanged Patient Education/Counseling: Diagnosis, Treatment, Prognosis Family Education/Counseling: No Family Present Departure 1 Departure Time of Disposition: 10:02 Impression: Primary Impression: Urinary tract infection Additional Impressions: Pyelonephritis Hydronephrosis Nephrolithiasis Disposition: 09 ADMITTED INPATIENT Condition: Serious Critical Care Note Critical Care Time?: No Stability Stability form required: No I personally scribed for GUME MIDDLETON MD ([email or web address]) on 05/01/24 at 04:35. Electronically submitted by Daina Aguilar ([email or web address]). GUME MIDDLETON MD May 01, 2024 04:35 TOYIN MUSTAFA MD May 01, 2024 10:04
[2024-05-01 06:23] LABS: Basophils # (auto) 0.1 10 ^3/uL (0-0.2); Basophils % (auto) 0.6 % (0.0-2.0); Eosinophils # (auto) 0.1 10 ^3/uL (0-0.8); Eosinophils % (auto) 0.7 % (0.0-7.0); Hematocrit 35.5 % (41.0-53.0); Hemoglobin 11.7 g/dL (13.5-17.5); Lymphocytes # (auto) 1.9 10 ^3/uL (0.4-5.4); Lymphocytes % (auto) 15.3 % (10.0-50.0); Mean Corpuscular Hemoglobin 27.9 pg (28.0-32.0); Mean Corpuscular Volume 84.7 fL (80.0-100.0); Monocytes # (auto) 1.1 10 ^3/uL (0-1.3); Neutrophils # (auto) 9.1 10 ^3/uL (1.6-8.6); Neutrophils % (auto) 74.4 % (37.0-80.0); Nucleated Red Blood Cells % 0.1 %; Platelet Count (auto) 239 10^3/uL (140-450); Red Blood Cells 4.19 10^6/uL (4.5-5.90); Red Cell Distribution Width 14.7 % (11.8-14.3); White Blood Cell 12.2 10^3/uL (4.4-10.8)
[2024-05-01 06:37] LABS: Albumin 3.7 g/dL (3.2-4.8); Alkaline Phosphatase 75 U/L (46-116); Anion Gap 7 (5-15); BUN/Creatinine Ratio 14.3 (10.0-20.0); Bilirubin, Total 0.4 mg/dL (0.2-1.0); Carbon Dioxide 23 mmol/L (20-31); Lipase 32 U/L (12-53); Potassium 4.2 mmol/L (3.5-5.1); Sodium 138 mmol/L (136-145); Total Protein 6.7 g/dL (5.7-8.2)
[2024-05-01 06:38] LABS: Alanine Aminotransferase 9 U/L (7-40); Aspartate Aminotransferase < 8 U/L (13-40); Blood Urea Nitrogen 40 mg/dL (9-23); Chloride 108 mmol/L (98-107); Glucose 163 mg/dL (74-106)
[2024-05-01 06:39] LABS: Calcium 8.6 mg/dL (8.7-10.4)
[2024-05-01 08:30] VITALS: PULSE 88; RESP 14; O2SAT 94
[2024-05-01 08:34] LABS: Urine Bacteria None Seen /hpf (None Seen)
--- NOTE | 2024-05-01 08:55 | DVH ---
CLINICAL INFORMATION: 74 years old, Male; abdominal pain. TECHNIQUE: Axial CT images of the abdomen and pelvis were obtained without IV contrast. Coronal and s agittal reformatted images were obtained, reviewed, and stored. Evaluation of the parenchymal organs is limited without IV contrast. Evaluation of the bowel and mesentery is limited without oral contras t. All CT scans at this medical facility are performed using dose modulation techniques as appropriat e to a performed exam including the following: Automated exposure control was utilized; adjustment of the MA and/or KV according to patient size; and use of iterative reconstruction technique. CTDIvol = 27.88 mGy DLP = 1407.35 mGy-cm COMPARISON: None FINDINGS: Lung bases: Atelectasis in the lung bases. Liver: Hepatic steatosis. Biliary: Calcified gallstones in the gallbladder Spleen: Unremarkable. Pancreas: Mild stranding adjacent to the tail of the pancreas, although may be coursing from the jacob cent process in the left kidney described below. Adrenal glands: Unremarkable. No mass. Kidneys: Severe left hydronephrosis with obstructing calculus measuring up to 4.5 mm in the proximal left ureter, just distal to the ureteropelvic junction. There is moderate left perinephric stranding. Bilateral nonobstructing renal calculi, including staghorn calculi in the lower pole of the right ki dney. No hydronephrosis or obstructing calculi on the right. Aorta/Vascular: Dense atherosclerotic calcification. No abdominal aortic aneurysm. Retroperitoneum: No mass or lymphadenopathy. Bowel/mesentery: No small bowel obstruction. No free air or free fluid. Appendix is visualized and ap pears unremarkable. Scattered small colonic diverticula without adjacent inflammatory changes to sug gest diverticulitis. Pelvic organs: Grossly unremarkable. Bladder: Mild circumferential thickening of the bladder wall. Abdominal wall: Moderate-size fat containing umbilical hernia. Bones: No acute fracture or suspicious intraosseous lesion. IMPRESSION: 1. Severe left hydronephrosis with obstructing calculus in the proximal left ureter measuring up to 4 .5 mm. Moderate left perinephric stranding. 2. There is mild stranding adjacent to the pancreatic tail, appears to be coursing from the process i n the left kidney described above. Acute pancreatitis would be less likely, although not excluded cor relate with clinical findings 3. Additional nonobstructing bilateral renal calculi. 4. Cholelithiasis. 5. Hepatic steatosis. 6. Mild circumferential thickening of the bladder wall is nonspecific. Correlate clinically to exclud e cystitis. 7. Moderate fat containing umbilical hernia. 8. Additional findings as detailed above.
[2024-05-01 09:13] LABS: Urine Blood 2+ /uL (Negative); Urine Clarity Ex.Turbid (Clear); Urine Color Light-Orange (Yellow); Urine Hyaline Cast MOD /lpf (0 - 2); Urine Protein, UAD 3+ (Negative); Urine Specific Gravity 1.017 (1.001-1.035); Urine Squamous Epithelial Cell None Seen /hpf (<5); Urine Urobilinogen Normal (Negative); Urine WBC 3789 /HPF (0-3); Urine WBC Clumps PRESENT /hpf (None Seen)
[2024-05-01] MEDS ORDERED: GABAPENTIN 300 MG CAP ONE (10:48)
[2024-05-01] MEDS ORDERED: METHOCARBAMOL 500 MG TAB ONE (10:49)
[2024-05-01] MEDS ORDERED: PIPERACILLIN-TAZOB 3.375GM 100 ML IV ONE (10:52)
[2024-05-01] MEDS ORDERED: TAMSULOSIN HYDROCHLORIDE 0.4 MG CAP PO ONE (10:52)
[2024-05-01] MEDS: TAMSULOSIN HYDROCHLORIDE 0.4 MG CAP PO ONE (11:01)
[2024-05-01] MEDS: PIPERACILLIN-TAZOB 3.375GM 100 ML IV ONE (11:01)
[2024-05-01] MEDS: METHOCARBAMOL 500 MG TAB PO ONE (11:01)
[2024-05-01] MEDS: GABAPENTIN 300 MG CAP PO ONE (11:01)
[2024-05-01] MEDS ORDERED: ACETAMINOPHEN 325 MG TAB PO PRN (11:15)
[2024-05-01] MEDS ORDERED: ONDANSETRON HCL 4 MG/2 ML VIAL IV PRN (11:15)
[2024-05-01] MEDS ORDERED: DEXTROSE (50%) 50ML SYRG IV PRN (11:15)
[2024-05-01] MEDS ORDERED: ASPI-325 PO (11:29)
[2024-05-01] MEDS ORDERED: TAMS0.4C39 PO (11:29)
[2024-05-01] MEDS ORDERED: CLOP75TA70 PO (11:29)
[2024-05-01] MEDS ORDERED: ATOR40TA52 PO (11:29)
[2024-05-01] MEDS: InsuLIN REG 1unit/0.01ml Soln (100units/ml) SC SCH (11:30)
--- NOTE | 2024-05-01 11:51 | DVHINCON2 ---
Date of service: May 01, 2024 Referring Physician Hospitalist Reason for Consultation Left hydronephrosis History of Present Illness 74 year old male brought in by EMS presents to the ED with a chief complaint of abdominal pain onset yesterday. Patient states he has been experiencing LLQ pain since yesterday, described as a sharp sensation. Patient has had kidney stones in the past, states pain is different. Takes Tylenol for pain, with slight improvement of symptoms. PMHx GA, DM. Denies nausea, vomiting, dysuria, hematuria, chest pain, fever, chills. No other symptoms or modifying factors present at this time. Chief Complaint: Abdominal Pain Primary Care Provider: [facility] Reviewed Notes: Medications, Allergies Allergies: Coded Allergies: NO KNOWN ALLERGIES (Unverified , 10/13/20) Home Meds Active Scripts Aspirin (Aspir-81) 81 Mg Tab, 1 TAB PO DAILY PRN for 30 Days, #30 TAB 3 Refills Prov:TEMI CRENSHAW MD 01/24/24 Clopidogrel Bisulfate (Plavix) 75 Mg Tab, 75 MG PO DAILY for 30 Days, #30 TAB 3 Refills Prov:TEMI CRENSHAW MD 01/24/24 Hydrocodone-Acetaminophen (Hydrocodone Bitartrate/AC 10-325 mg) 1 Tab Tab, 1 TAB PO BID, #12 TAB Prov:DAVONTE PICHARDO 04/28/23 Reported Medications Insulin Glargine-Yfgn (Insulin Glargine) 100 Unit/Ml Inj, 60 UNIT SC DAILY, INJ 01/22/24 Methocarbamol (Methocarbamol) 500 Mg Tab, 500 MG PO PRN for muscle spasms for 30 Days, MG 01/22/24 Amlodipine Besylate-Atorvastat (Amlodipine Besylate/Atorv 5-20 mg) 1 Tab Tab, 1 TAB PO, TAB 10/14/20 Liraglutide (Victoza) 18 Mg/3 Ml Inj, 1.8 MG SUBCUT DAILY, #9 ML 3 Refills 10/14/20 Insulin Aspart Protamine & Asp (Insulin Aspart Protamine/ (70-30) 100 Unit/ml) 1 Inj Inj, 10 INJ SC, INJ 10/14/20 Information Source: Patient, Emergency Med Personnel Mode of Arrival: EMS Timing: Days Duration: Since onset Prehospital treatment: Pain Meds Quality: Sharp Vomitus: None Severity: Moderate Recent: None Recent Hx of: Diabetes Pain Location: LLQ Modifying Factors: Nothing Associated sign and symptoms: Abdominal Pain Past Medical History DM, Kidney Stones, [place] Family History: Patient reports no known family medical history. Allergies: Coded Allergies: NO KNOWN ALLERGIES (Unverified , 10/13/20) Home Meds Active Scripts Aspirin (Aspir-81) 81 Mg Tab, 1 TAB PO DAILY PRN for 30 Days, #30 TAB 3 Refills Prov:TEMI CRENSHAW MD 01/24/24 Clopidogrel Bisulfate (Plavix) 75 Mg Tab, 75 MG PO DAILY for 30 Days, #30 TAB 3 Refills Prov:TEMI CRENSHAW MD 01/24/24 Hydrocodone-Acetaminophen (Hydrocodone Bitartrate/AC 10-325 mg) 1 Tab Tab, 1 TAB PO BID, #12 TAB Prov:DAVONTE PICHARDO 04/28/23 Reported Medications Clopidogrel Bisulfate (CLOPIDOGREL) 75 Mg Tab, 1 TAB PO DAILY 05/01/24 Tamsulosin Hcl (Tamsulosin Hcl) 0.4 Mg Cap, CAP PO 05/01/24 Atorvastatin Calcium (ATORVASTATIN CALCIUM) 40 Mg Tab, 1 TAB PO 05/01/24 Aspirin (Aspirin Low Dose) 81 Mg Tab, 1 TAB PO DAILY 05/01/24 Insulin Glargine-Yfgn (Insulin Glargine) 100 Unit/Ml Inj, 60 UNIT SC DAILY, INJ 01/22/24 Methocarbamol (Methocarbamol) 500 Mg Tab, 500 MG PO PRN for muscle spasms for 30 Days, MG 01/22/24 Amlodipine Besylate-Atorvastat (Amlodipine Besylate/Atorv 5-20 mg) 1 Tab Tab, 1 TAB PO, TAB 10/14/20 Liraglutide (Victoza) 18 Mg/3 Ml Inj, 1.8 MG SUBCUT DAILY, #9 ML 3 Refills 10/14/20 Insulin Aspart Protamine & Asp (Insulin Aspart Protamine/ (70-30) 100 Unit/ml) 1 Inj Inj, 10 INJ SC, INJ 10/14/20 Current Medications Current Medications Medications (Trade) Dose Ordered Sig/Meli Route PRN Reason Start Time Stop Time Status Last Admin Acetaminophen/ Hydrocodone Bitart ([place] 5/325MG Tab) 1 tab Q4HP PRN PO MODERATE PAIN (4-6 PAIN SCALE) 05/01/24 11:15 Ondansetron HCl (Zofran) 4 mg Q4HP PRN IV NAUSEA / VOMITING 05/01/24 11:15 Acetaminophen (Tylenol Tablet) 650 mg Q6HP PRN PO PAIN SCALE 1-3 OR TEMP>100.4 05/01/24 11:15 Morphine Sulfate 2 mg Q4HPRN PRN IV SEVERE PAIN (7-10 PAIN SCALE) 05/01/24 11:15 Piperacillin Sod/ Tazobactam Sod 100 ml @ 25 mls/hr Q8H IV 05/01/24 18:00 Diagnostic Test (Pha) (Accu-Chek Comfort Curve T) 1 strip ACHS 05/01/24 11:30 Insulin Human Regular (InsuLIN R) ACHS SC 05/01/24 11:30 Dextrose 50 ml UD PRN IV Blood Sugar LESS THAN 60 05/01/24 11:15 Review of Systems Constitutional: denies: chills, diaphoresis, fatigue, fever, malaise, sweats, weakness, others EENTM: denies: blurred vision, double vision, ear bleeding, ear discharge, ear drainage, ear pain, ear ringing, eye pain, eye redness, hearing loss, mouth pain, mouth swelling, nasal discharge, nose bleeding, nose congestion, nose pain, photophobia, tearing, throat pain, throat swelling, voice changes, others Respiratory: denies: cough, hemoptysis, orthopnea, SOB at rest, shortness of breath, SOB with excertion, stridor, wheezing, others Cardiovascular: denies: chest pain, dizzy spells, diaphoresis, Dyspnea on exertion, edema, irregular heart beat, left arm pain, lightheadedness, palpitations, PND, syncope, others Gastrointestinal: reports: abdominal pain (LLQ); denies: abdomen distended, blood streaked bowels, constipated, diarrhea, dysphagia, difficulty swallowing, hematemesis, melena, nausea, poor appetite, poor fluid intake, rectal bleeding, rectal pain, vomiting, others Genitourinary: denies: burning, dysuria, flank pain, frequency, hematuria, incontinence, penile discharge, penile sore, pain, testicle pain, testicle swelling, urgency, others Neurological: denies: dizziness, fainting, headache, left sided numbness, left sided weakness, numbness, paresthesia, pre-existing deficit, right sided numbness, right sided weakness, seizure, speech problems, tingling, tremors, weakness, others Musculoskeletal: denies: back pain, gout, joint pain, joint swelling, muscle pain, muscle stiffness, neck pain, others Integumetry: denies: bruises, change in color, change in hair/nails, dryness, laceration, lesions, lumps, rash, wounds, others Allergic/Immunocompromised: denies: Difficulty Healing, Frequent Infections, Hives, Itching, others Hematologic/Lymphatic: denies: anemia, blood clots, easy bleeding, easy bruis ing, swollen glands, others Endocrine: denies: excessive hunger, excessive sweating, excessive thirst, exc essive urination, flushing, intolerance to cold, intolerance to heat, unexplained weight gain, unexplained weight loss, others Psychiatric: denies: anxiety, bipolar disorder, depression, hopeless, panic disorder, schizophrenia, sleepless, suicidal, others All Other Systems: Reviewed and Negative Vital Signs Vital Signs Date Time Temp Pulse Resp B/P (MAP) Pulse Ox O2 Delivery O2 Flow Rate FiO2 05/01/24 10:00 83 14 154/84 (107) 94 05/01/24 08:30 Room Air* 0 21 05/01/24 08:30 98.6 98.6 Physical Exam General Appearance Physical Exam General Appearance: No Apparent Distress, Normal HEENT: Normal ENT Inspection, Pharynx Normal, TMs Normal Neck: Full Range of Motion, Non-Tender, Normal, Normal Inspection Respiratory: Chest Non-Tender, Lungs Clear, No Accessory Muscle Use, No Respiratory Distress, Normal Breath Sounds Cardiovascular: No Edema, No JVD, No Murmur, No Gallop, Normal Peripheral Pulses, Regular Rate/Rhythm Breast Exam: Deferred Gastrointestinal: No Organomegaly, Non Tender, No Pulsatile Mass, Normal Bowel Sounds, Soft Genitalia: Deferred Pelvic: Deferred Rectal: Deferred Extremities: No calf tenderness, Normal capillary refill, Normal inspection, Normal range of motion, Non-tender, No pedal edema Musculoskeletal : Apperance: Normal Neurologic: Alert, pet care assistant II-XII nml as Tested, No Motor Deficits, Normal Affect, Normal Mood, No Sensory Deficits Cerebellar Function: Normal Reflexes: Normal Skin: Dry, Normal Color, Warm Lymphatic: No Adenopathy Labs/Diagnostic Data Labs Test 05/01/24 08:18 05/01/24 05:54 Range/Units Urine Color Light-orange Yellow Urine Clarity Ex.turbid Clear Urine pH 6.0 5.0-9.0 Urine Specific [place] 1.017 1.001-1.035 Urine Protein 3+ H Negative Urine Ketones Negative Negative Urine Blood 2+ H Negative /uL Urine Nitrite 1+ H Negative Urine Bilirubin Negative Negative Urine Urobilinogen Normal Negative mg/dL Urine Leukocyte Esterase 3+ Negative /uL Urine RBC 51 0 - 3 /hpf Urine WBC Clumps Present None Seen /hpf Urine Microscopic WBC 3789 H 0-3 /HPF Urine Squamous Epithelial Cells None seen <5 /hpf Urine Bacteria None seen None Seen /hpf Urine Hyaline Casts Mod 0 - 2 /lpf Urine Glucose 4+ H Normal mg/dL White Blood Count 12.2 H 4.4-10.8 10^3/uL Red Blood Count 4.19 L 4.5-5.90 10^6/uL Hemoglobin 11.7 L 13.5-17.5 g/dL Hematocrit 35.5 L 41.0-53.0 % Mean Corpuscular Volume 84.7 80.0-100.0 fL Mean Corpuscular Hemoglobin 27.9 L 28.0-32.0 pg Mean Corpuscular Hemoglobin Concent 33.0 32.0-36.0 g/dL Red Cell Distribution Width 14.7 H 11.8-14.3 % Platelet Count 239 140-450 10^3/uL Mean Platelet Volume 8.1 6.9-10.8 fL Neutrophils (%) (Auto) 74.4 37.0-80.0 % Lymphocytes (%) (Auto) 15.3 10.0-50.0 % Monocytes (%) (Auto) 9.0 0.0-12.0 % Eosinophils (%) (Auto) 0.7 0.0-7.0 % Basophils (%) (Auto) 0.6 0.0-2.0 % Neutrophils # (Auto) 9.1 H 1.6-8.6 10 ^3/uL Lymphocytes # (Auto) 1.9 0.4-5.4 10 ^3/uL Monocytes # (Auto) 1.1 0-1.3 10 ^3/uL Eosinophils # (Auto) 0.1 0-0.8 10 ^3/uL Basophils # (Auto) 0.1 0-0.2 10 ^3/uL Nucleated Red Blood Cells 0.1 % Sodium Level 138 136-145 mmol/L Potassium Level 4.2 3.5-5.1 mmol/L Chloride Level 108 H 98-107 mmol/L Carbon Dioxide Level 23 20-31 mmol/L Anion Gap 7 5-15 Blood Urea Nitrogen 40 H 9-23 mg/dL Creatinine 2.79 H 0.700-1.30 mg/dL Glomerular Filtration Rate Calc 23 >90 mL/min BUN/Creatinine Ratio 14.3 10.0-20.0 Serum Glucose 163 H 74-106 mg/dL Calcium Level 8.6 L 8.7-10.4 mg/dL Total Bilirubin 0.4 0.2-1.0 mg/dL Aspartate Amino Transferase (AST) < 8 L 13-40 U/L Alanine Aminotransferase (ALT) 9 7-40 U/L Alkaline Phosphatase 75 46-116 U/L Total Protein 6.7 5.7-8.2 g/dL Albumin 3.7 3.2-4.8 g/dL Lipase 32 12-53 U/L PATIENT: ENOCH KELLEY ACCT: [id number] UNIT: [id number] : 1950 LOC: ER ROOM / BED: / AGE / SEX: 74 / M ADM STATUS: REG ER SERVICE [id number] ORDERING PHYSICIAN: GUME MIDDLETON MD PROCEDURE(s): ABPL - CT AB PEL WO CON-NO ORAL OR IV REASON: abdominal pain ORDER NUMBER(s): [id number], ACCESSION NUMBER(s): [id number] CLINICAL INFORMATION: 74 years old, Male; abdominal pain. TECHNIQUE: Axial CT images of the abdomen and pelvis were obtained without IV contrast. Coronal and sagittal reformatted images were obtained, reviewed, and stored. Evaluation of the parenchymal organs is limited without IV contrast. Evaluation of the bowel and mesentery is limited without oral contrast. All CT scans at this medical facility are performed using dose modulation techniques as appropriate to a performed exam including the following: Automated exposure control was utilized; adjustment of the MA and/or KV according to patient size; and use of iterative reconstruction technique. CTDIvol = 27.88 mGy DLP = 1407.35 mGy-cm COMPARISON: None FINDINGS: Lung bases: Atelectasis in the lung bases. Liver: Hepatic steatosis. Biliary: Calcified gallstones in the gallbladder Spleen: Unremarkable. Pancreas: Mild stranding adjacent to the tail of the pancreas, although may be coursing from the adjacent process in the left kidney described below. Adrenal glands: Unremarkable. No mass. Kidneys: Severe left hydronephrosis with obstructing calculus measuring up to 4.5 mm in the proximal left ureter, just distal to the ureteropelvic junction. There is moderate left perinephric stranding. Bilateral nonobstructing renal calculi, including staghorn calculi in the lower pole of the right kidney. No hydronephrosis or obstructing calculi on the right. Aorta/Vascular: Dense atherosclerotic calcification. No abdominal aortic aneurysm. Retroperitoneum: No mass or lymphadenopathy. Bowel/mesentery: No small bowel obstruction. No free air or free fluid. Appendix is visualized and appears unremarkable. Scattered small colonic diverticula without adjacent inflammatory changes to suggest diverticulitis. Pelvic organs: Grossly unremarkable. Bladder: Mild circumferential thickening of the bladder wall. Abdominal wall: Moderate-size fat containing umbilical hernia. Bones: No acute fracture or suspicious intraosseous lesion. IMPRESSION: 1. Severe left hydronephrosis with obstructing calculus in the proximal left ureter measuring up to 4.5 mm. Moderate left perinephric stranding. 2. There is mild stranding adjacent to the pancreatic tail, appears to be coursing from the process in the left kidney described above. Acute pancreatitis would be less likely, although not excluded correlate with clinical findings 3. Additional nonobstructing bilateral renal calculi. 4. Cholelithiasis. 5. Hepatic steatosis. 6. Mild circumferential thickening of the bladder wall is nonspecific. Correlate clinically to exclude cystitis. 7. Moderate fat containing umbilical hernia. 8. Additional findings as detailed above. ATED BY: GOYO CHEUNG DO DICTATED DATE/TIME: 05/01/24852 SIGNED BY: GOYO CHEUNG DO SIGNED DATE/TIME: 05/01/24852 Assessment Severe Left hydronephrosis 5 mm proximal left ureteral stone Elevated creatinine/Azotemia Plan/Recommendation Left PNT placement per IR OUtpatient lithotripsy TBA when creatinine normalized Plan discussed with: Patient, Other LEO GREGORY MD May 01, 2024 11:51
[2024-05-01] MEDS: ACETAMINOPHEN 325 MG TAB PO ONE (11:52)
[2024-05-01] MEDS: ACCU-CHEK COMFORT CURVE STRIP VI SCH (11:54)
--- NOTE | 2024-05-01 12:16 | DVHHP2 ---
History of Present Illness Reason for Visit: Left flank pain History of Present Illness Se Ortiz is a 74-year-old male with past medical history of hypertension, hyperlipidemia, diabetes, SD in January of 2024 status post PTCA x2 YVAN who presents to the ED with left-sided flank pain x3 days. Patient's son Goyo is at the bedside and states that he currently lives with his father. Patient also reports that he has had multiple kidney stones in the last 5 years and has had to have multiple procedures done. Patient reports that he occasionally drinks, quit smoking, and does not use illicit drugs. Patient reports that he has a [place] facility that he typically goes to. Patient also reports frequency but no dysuria. Patient denies any chest pain, shortness of breath, fever, chills, lightheadedness, weakness, dizziness, nausea, vomiting, or diarrhea. Patient is hard of hearing and does not use hearing aids. Cardiovascular: HTN, SD, hyperipidemia Endocrine: Diabetes Past Surgical History: Other (PTCA x2) Family History: Cancer, Other (Mom with heart valve replacement and dad with CABG and lung cancer) Smoke: Quit ALCOHOL: occassional Drugs: None Lives: with Family Domestic Violence: Neg Review of Systems ENT: Other (Hard of hearing) Genitourinary: Frequency Musculoskeletal: other (Left flank pain) Allergies: Coded Allergies: NO KNOWN ALLERGIES (Unverified , 10/13/20) Medications Current Medications Medications Dose Ordered Sig/Meli Route Start Time Stop Time Status Last Admin Dose Admin Acetaminophen/ Hydrocodone Bitart 1 tab Q4HP PRN PO 05/01/24 11:15 UNV Ondansetron HCl 4 mg Q4HP PRN IV 05/01/24 11:15 UNV Acetaminophen 650 mg Q6HP PRN PO 05/01/24 11:15 UNV Morphine Sulfate 2 mg Q4HPRN PRN IV 05/01/24 11:15 UNV Piperacillin Sod/ Tazobactam Sod 100 ml @ 25 mls/hr Q8HR IV 05/01/24 14:00 UNV Diagnostic Test (Pha) 1 strip ACHS 05/01/24 11:30 UNV Insulin Human Regular ACHS SC 05/01/24 11:30 UNV Dextrose 50 ml UD PRN IV 05/01/24 11:15 UNV Exam Vital Signs Vital Signs Date Time Temp Pulse Resp B/P (MAP) Pulse Ox O2 Delivery O2 Flow Rate FiO2 05/01/24 10:00 83 14 154/84 (107) 94 05/01/24 08:30 Room Air* 0 21 05/01/24 08:30 98.6 98.6 General Appearance: Alert, Oriented X3, Cooperative, No acute distress HEENT: Atraumatic, PERRLA, EOMI, Mucous membr. moist/pink Respiratory: Normal air movement Cardiovascular: Normal S1, Normal S2, No murmurs Neuro: Normal speech, Sensation intact Psych/Mental Status: Mental status NL, Mood NL Labs/Xrays Labs Test 05/01/24 08:18 05/01/24 05:54 Range/Units Urine Color Light-orange Yellow Urine Clarity Ex.turbid Clear Urine pH 6.0 5.0-9.0 Urine Specific [place] 1.017 1.001-1.035 Urine Protein 3+ H Negative Urine Ketones Negative Negative Urine Blood 2+ H Negative /uL Urine Nitrite 1+ H Negative Urine Bilirubin Negative Negative Urine Urobilinogen Normal Negative mg/dL Urine Leukocyte Esterase 3+ Negative /uL Urine RBC 51 0 - 3 /hpf Urine WBC Clumps Present None Seen /hpf Urine Microscopic WBC 3789 H 0-3 /HPF Urine Squamous Epithelial Cells None seen <5 /hpf Urine Bacteria None seen None Seen /hpf Urine Hyaline Casts Mod 0 - 2 /lpf Urine Glucose 4+ H Normal mg/dL White Blood Count 12.2 H 4.4-10.8 10^3/uL Red Blood Count 4.19 L 4.5-5.90 10^6/uL Hemoglobin 11.7 L 13.5-17.5 g/dL Hematocrit 35.5 L 41.0-53.0 % Mean Corpuscular Volume 84.7 80.0-100.0 fL Mean Corpuscular Hemoglobin 27.9 L 28.0-32.0 pg Mean Corpuscular Hemoglobin Concent 33.0 32.0-36.0 g/dL Red Cell Distribution Width 14.7 H 11.8-14.3 % Platelet Count 239 140-450 10^3/uL Mean Platelet Volume 8.1 6.9-10.8 fL Neutrophils (%) (Auto) 74.4 37.0-80.0 % Lymphocytes (%) (Auto) 15.3 10.0-50.0 % Monocytes (%) (Auto) 9.0 0.0-12.0 % Eosinophils (%) (Auto) 0.7 0.0-7.0 % Basophils (%) (Auto) 0.6 0.0-2.0 % Neutrophils # (Auto) 9.1 H 1.6-8.6 10 ^3/uL Lymphocytes # (Auto) 1.9 0.4-5.4 10 ^3/uL Monocytes # (Auto) 1.1 0-1.3 10 ^3/uL Eosinophils # (Auto) 0.1 0-0.8 10 ^3/uL Basophils # (Auto) 0.1 0-0.2 10 ^3/uL Nucleated Red Blood Cells 0.1 % Sodium Level 138 136-145 mmol/L Potassium Level 4.2 3.5-5.1 mmol/L Chloride Level 108 H 98-107 mmol/L Carbon Dioxide Level 23 20-31 mmol/L Anion Gap 7 5-15 Blood Urea Nitrogen 40 H 9-23 mg/dL Creatinine 2.79 H 0.700-1.30 mg/dL Glomerular Filtration Rate Calc 23 >90 mL/min BUN/Creatinine Ratio 14.3 10.0-20.0 Serum Glucose 163 H 74-106 mg/dL Calcium Level 8.6 L 8.7-10.4 mg/dL Total Bilirubin 0.4 0.2-1.0 mg/dL Aspartate Amino Transferase (AST) < 8 L 13-40 U/L Alanine Aminotransferase (ALT) 9 7-40 U/L Alkaline Phosphatase 75 46-116 U/L Total Protein 6.7 5.7-8.2 g/dL Albumin 3.7 3.2-4.8 g/dL Lipase 32 12-53 U/L CLINICAL INFORMATION: 74 years old, Male; abdominal pain. TECHNIQUE: Axial CT images of the abdomen and pelvis were obtained without IV contrast. Coronal and sagittal reformatted images were obtained, reviewed, and stored. Evaluation of the parenchymal organs is limited without IV contrast. Evaluation of the bowel and mesentery is limited without oral contrast. All CT scans at this medical facility are performed using dose modulation techniques as appropriate to a performed exam including the following: Automated exposure control was utilized; adjustment of the MA and/or KV according to patient size; and use of iterative reconstruction technique. CTDIvol = 27.88 mGy DLP = 1407.35 mGy-cm COMPARISON: None FINDINGS: Lung bases: Atelectasis in the lung bases. Liver: Hepatic steatosis. Biliary: Calcified gallstones in the gallbladder Spleen: Unremarkable. Pancreas: Mild stranding adjacent to the tail of the pancreas, although may be coursing from the adjacent process in the left kidney described below. Adrenal glands: Unremarkable. No mass. Kidneys: Severe left hydronephrosis with obstructing calculus measuring up to 4.5 mm in the proximal left ureter, just distal to the ureteropelvic junction. There is moderate left perinephric stranding. Bilateral nonobstructing renal calculi, including staghorn calculi in the lower pole of the right kidney. No hydronephrosis or obstructing calculi on the right. Aorta/Vascular: Dense atherosclerotic calcification. No abdominal aortic aneurysm. Retroperitoneum: No mass or lymphadenopathy. Bowel/mesentery: No small bowel obstruction. No free air or free fluid. Appendix is visualized and appears unremarkable. Scattered small colonic diverticula without adjacent inflammatory changes to suggest diverticulitis. Pelvic organs: Grossly unremarkable. Bladder: Mild circumferential thickening of the bladder wall. Abdominal wall: Moderate-size fat containing umbilical hernia. Bones: No acute fracture or suspicious intraosseous lesion. IMPRESSION: 1. Severe left hydronephrosis with obstructing calculus in the proximal left ureter measuring up to 4.5 mm. Moderate left perinephric stranding. 2. There is mild stranding adjacent to the pancreatic tail, appears to be coursing from the process in the left kidney described above. Acute pancreatitis would be less likely, although not excluded correlate with clinical findings 3. Additional nonobstructing bilateral renal calculi. 4. Cholelithiasis. 5. Hepatic steatosis. 6. Mild circumferential thickening of the bladder wall is nonspecific. Correlate clinically to exclude cystitis. 7. Moderate fat containing umbilical hernia. 8. Additional findings as detailed above. Assessment/Plan Assessment/Plan Assessment Intractable left flank pain Severe left hydronephrosis with obstructing calculus in the proximal left ureter measuring up to 4.5 mm nonobstructing bilateral renal calculi Cholelithiasis Hepatic steatosis Acute cystitis umbilical hernia Leukocytosis likely due to acute cystitis Azotemia Diabetes type 2 Hard of hearing no hearing aids History of hypertension History of hyperlipidemia History of SD status post PTCA x2 YVAN in January of 2024 Plan Admit to [facility] CT abdomen and pelvis noted Flomax given in ED IV antibiotics-Zosyn Antiemetics Lipase Hemoglobin A1c ISS and Accu-Cheks Ultrasound left kidney Last echo 01/21/2024 EF 40 45% Urology consult Home medications reconciled -patient on Plavix DVT prophylaxis-patient on Plavix PUD prophylaxis-not indicated no history of GERD or GI bleed Discussed plan of care with patient, patient's son, and nurse Plan discussed with: Patient, Son My Orders Orders - VELASQUEZ GRIER Procedure Category Date Status Time Kidney US 05/01/24 Taken 10:58 Admit ADMIT 05/01/24 Transmitted 11:03 Allergies FIDEL 05/01/24 In Process 11:03 Code Status CODE 05/01/24 Transmitted 11:03 Hydrocodone-Acet PHA 05/01/24 Logged 5/325mg Tab ([place] 11:15 Ondansetron Hcl PHA 05/01/24 Logged (Zofran) 11:15 Complete Blood Count LAB 05/02/24 Verified 04:00 Comprehensive LAB 05/02/24 Verified Metabolic Panel 04:00 Acetaminophen Tablet PHA 05/01/24 Logged (Tylenol Tablet) 11:15 Morphine Sulfate PHA 05/01/24 Logged Injection 11:15 Piperacillin-Tazob PHA 05/01/24 Logged 3.375gm (Zosyn 3.375g 14:00 Hemoglobin A1c LAB 05/01/24 Logged 11:03 Glucose Blood PHA 05/01/24 Logged (Accu-Chek Comfort 11:30 Insulin R (Human) PHA 05/01/24 Logged (Insulin R) 11:30 Dextrose 50% Syringe PHA 05/01/24 Logged 11:15 Consistent DIET 05/01/24 Transmitted Carb(Ccho)Diabetes Lunch * Urology Consult CONS 05/01/24 Transmitted 11:29 Date of Service: May 01, 2024 Billing Provider: VELASQUEZ GRIER Common Visit Codes: [id number] INP/OBS CARE (HIGH) VELASQEUZ GRIER May 01, 2024 12:16
--- NOTE | 2024-05-01 12:16 | DVH ---
INDICATION: obstruction TECHNIQUE: Multiple real-time sonographic images of the kidneys and bladder were obtained. COMPARISON: 05/01/2024 FINDINGS: The right kidney measures 13 cm in length, which is large in size. There is normal echogeni city of the right kidney. No hydronephrosis. Multiple echogenic foci in the right kidney measuring up to 1.3 cm. The left kidney measures 16 cm in length, which is enlarged in size. Moderate left hydronephrosis. Le ft renal stone better visualized on prior CT. No large intraluminal masses are seen in the bladder. Prior to voiding the bladder volume measures vo lume 185 cc. IMPRESSION: Enlarged bilateral kidneys. Moderate left hydronephrosis. Left renal stone better visualized on prior CT.
[2024-05-01] MEDS: PIPERACILLIN-TAZOB 3.375GM 100 ML IV SCH (18:00)
[2024-05-01] MEDS: MORPHINE SULFATE INJ 2 MG/ml SYRG IV PRN (18:12)
[2024-05-01 18:44] VITALS: BP 131/61; PULSE 84; RESP 22; TEMP 98.2; O2SAT 96
[2024-05-01] MEDS ORDERED: CIPROFLOXACIN 400MG/200ML 200 ML IV ONE (19:00)
[2024-05-01] MEDS ORDERED: PROPOFOL 10 MG/ML 20 ML IV ONE (19:09)
[2024-05-01] MEDS ORDERED: LIDOCAINE 1% INJ PF 5ML AMP ONE (19:09)
[2024-05-01] MEDS ORDERED: KETAMINE 50mg/ML 1ml syringe ONE (19:09)
[2024-05-01] MEDS ORDERED: fentaNYL CITRATE 100 MCG/2 ML VL ONE (19:09)
[2024-05-01] MEDS ORDERED: SODIUM CHLORIDE LOCK 10 ML ONE (19:09)
[2024-05-01] MEDS ORDERED: MIDAZOLAM HCL 2MG/2ML 2ml VIAL (1mg/ml) ONE (19:09)
[2024-05-01] MEDS ORDERED: MORPHINE SULFATE 4 MG/ML SYR/VIAL IV PRN (19:45)
[2024-05-01] MEDS ORDERED: ACCU-CHEK COMFORT CURVE STRIP VI ONE (19:45)
[2024-05-01] MEDS ORDERED: HYDROmorphone HCL 2 MG/ML VL/or syr IV PRN ×2 (19:45)
[2024-05-01] MEDS ORDERED: MORPHINE SULFATE INJ 2 MG/ml SYRG IV PRN (19:45)
[2024-05-01] MEDS ORDERED: METOCLOPRAMIDE HCL 5MG/ml INJ 2ml VIAL IV ONE (19:45)
[2024-05-01] MEDS ORDERED: ROCURONIUM 10MG/ML 10ML VIAL IV ONE (19:47)
[2024-05-01] MEDS ORDERED: LIDOCAINE HCL 2% TOP JELLY 5ML TOP ONE (19:51)
[2024-05-01 20:00] VITALS: PULSE 72
[2024-05-01] MEDS ORDERED: IOHEXOL 300 MG/ML 100ML BOTTLE IJ ONE (20:13)
[2024-05-01 20:30] VITALS: RESP 18; O2SAT 93
--- NOTE | 2024-05-01 20:36 | DVHOP2 ---
Operative Report - 2 Report Details Date: 05/01/24 Preop Diagnosis: Left flank pain Left hydronephrosis Left mid ureteral calculus, 5 mm obstructing Postop Diagnosis: Same Surgeon: Leo Gregory Anesthesiologist: Tono Anesthesia: General Consent: The patient was informed of the risks and benefits of the procedure. These include but are not limited to complications of anesthesia, postoperative infection, incomplete relief of symptoms, recurrence of symptoms, damage to b lood vessels, nerves and tendons, deep venous thrombosis, pulmonary embolism and possible need for repeat surgery in the future. Indications for Surgery: Patient with history recurrent stone disease. He is admitted with intractable left flank pain due to a 5 mm proximal ureteral calculus obstructing and causing hydronephrosis. Because he is on Plavix, percutaneous nephrostomy tube can not be performed for five days. Due to his significant flank pain, patient was taken to the operating room for urgent stent placement Name of Procedure Performed Cystoscopy with left ureteral stone manipulation Cystoscopy with left ureteral stent placement Procedure Details Procedure Details: Patient was taken to the operating room and underwent general anesthesia. He was placed in dorsal lithotomy position with the area of the genitalia prepped and draped in usual sterile manner. Twenty-one Sami rigid cystoscope was used to inspect the urethra and the bladder. Prostatic urethra shows Coaptite lateral lobes and slightly high median bar prostate. There was no median lobe prostate. Once the bladder was accessed, there were yellow cotton debris suggestive of bladder outlet obstruction. Bladder was irrigated with saline. Next the left ureteric orifice was cannulated with six Sami open-ended catheter and retrograde pyelogram was performed. The study showed a filling defect in the mid to proximal ureter with hydronephrosis. I was able to use a sensor guidewire to straighten the slightly tortuous ureter and access the renal pelvis. Open-ended catheter was pushed proximally and move the stone into the renal pelvis. Open-ended catheter was then removed keeping the guidewire in position. A five Sami by 26 cm polaris loop ureteral stent was placed. Cystoscope was removed in entirety. Mensah catheter was temporarily placed. Patient was awakened and taken to recovery room in stable condition. Specimen: None Condition Fair Disposition Patient will need outpatient lithotripsy in 2-3 weeks' time LEO GREGORY MD May 01, 2024 20:36
[2024-05-01] MEDS: ATORVASTATIN 20 MG TAB PO SCH (22:04)
[2024-05-02 01:00] VITALS: BP 119/61; PULSE 81; RESP 18; TEMP 98.4; O2SAT 92
[2024-05-02 05:00] VITALS: BP 125/63; PULSE 80; RESP 18; TEMP 98.1; O2SAT 93
--- NOTE | 2024-05-02 05:13 | DVH ---
EXAM: XR Abdomen, 2 Views CLINICAL INDICATION: CYSTOSCOPY WITH STENT PLACEMENT TECHNIQUE: Frontal view of the abdomen/pelvis with upright view of the abdomen. COMPARISON: None FINDINGS: INTRAPERITONEAL SPACE: No free air. GASTROINTESTINAL TRACT: Unremarkable. No dilation. BONES/JOINTS: Unremarkable. No acute fracture. OTHER FINDINGS: . Fluoroscopic guidance was intraoperatively. 3 spot images were obtain. Total fl uoroscopy time 56.0 seconds. Total radiation dose 40.12 mGy. IMPRESSION: Please refer to the operative details further details.
--- NOTE | 2024-05-02 05:36 | DVH ---
C-ARM FLUOROSCOPY: PROCEDURE: Left stent placement FLUOROSCOPY TIME: 56 sec DAP: 40 mgy FINDINGS: Spot intraoperative C arm radiographs demonstrating left stent placement . IMPRESSION: Please refer to surgical report for detailed findings.
[2024-05-02 06:28] LABS: Basophils # (auto) 0.1 10 ^3/uL (0-0.2); Basophils % (auto) 0.8 % (0.0-2.0); Eosinophils # (auto) 0.1 10 ^3/uL (0-0.8); Eosinophils % (auto) 1.4 % (0.0-7.0); Hematocrit 32.2 % (41.0-53.0); Hemoglobin 11.1 g/dL (13.5-17.5); Lymphocytes # (auto) 2.1 10 ^3/uL (0.4-5.4); Lymphocytes % (auto) 21.6 % (10.0-50.0); Mean Corpuscular Hemoglobin 29.3 pg (28.0-32.0); Mean Corpuscular Hgb Conc. 34.4 g/dL (32.0-36.0); Mean Corpuscular Volume 85.1 fL (80.0-100.0); Monocytes # (auto) 0.9 10 ^3/uL (0-1.3); Monocytes % (auto) 9.4 % (0.0-12.0); Neutrophils # (auto) 6.6 10 ^3/uL (1.6-8.6); Neutrophils % (auto) 66.8 % (37.0-80.0); Platelet Count (auto) 218 10^3/uL (140-450); Red Blood Cells 3.78 10^6/uL (4.5-5.90); Red Cell Distribution Width 14.4 % (11.8-14.3); White Blood Cell 9.8 10^3/uL (4.4-10.8)
[2024-05-02 06:41] LABS: Albumin 3.3 g/dL (3.2-4.8); Alkaline Phosphatase 73 U/L (46-116); Anion Gap 10 (5-15); BUN/Creatinine Ratio 13.7 (10.0-20.0); Carbon Dioxide 22 mmol/L (20-31); Chloride 105 mmol/L (98-107); Potassium 4.1 mmol/L (3.5-5.1); Sodium 137 mmol/L (136-145); Total Protein 6.1 g/dL (5.7-8.2)
[2024-05-02 06:42] LABS: Bilirubin, Total 0.4 mg/dL (0.2-1.0)
[2024-05-02 06:45] LABS: Alanine Aminotransferase < 9 U/L (7-40); Aspartate Aminotransferase 9 U/L (13-40); Blood Urea Nitrogen 40 mg/dL (9-23); Calcium 8.5 mg/dL (8.7-10.4); Glucose 162 mg/dL (74-106)
[2024-05-02 07:43] VITALS: BP 103/65; PULSE 79; RESP 20; TEMP 97.6; O2SAT 93
[2024-05-02 07:50] LABS: INR 1.08 (0.9-1.15); Partial Thromboplastin Time 35.3 SEC (24.5-34.5); Prothrombin Time 11.4 sec (9.3-11.8)
[2024-05-02] MEDS: ASPirin-EC 81 mg tab PO SCH (09:12)
[2024-05-02] MEDS: CLOPIDOGREL BISULFATE 75 MG TAB PO SCH (09:12)
[2024-05-02] MEDS: TAMSULOSIN HYDROCHLORIDE 0.4 MG CAP PO SCH (09:13)
[2024-05-02] MEDS: HYDROcodone-ACET 5/325MG TAB PO PRN (09:41)
--- NOTE | 2024-05-02 10:59 | DVHPN2 ---
ENT: Other (Hard of hearing) Genitourinary: Frequency Musculoskeletal: other (Left flank pain) Objective Vitals Vital Signs Date Time Temp Pulse Resp B/P (MAP) Pulse Ox O2 Delivery O2 Flow Rate FiO2 05/02/24 08:00 Nasal Cannula* 2 05/02/24 07:43 97.6 79 20 103/65 (78 93 97.6 Intake/Output Intake and Output 05/02/24 07:00 Intake Total 680 ml Output Total 700 ml Balance -20 ml Intake Oral 480 ml IV Total 200 ml Output Urine Total 700 ml Medications Current Medications Medications Dose Ordered Sig/Meli Route Start Time Stop Time Status Last Admin Dose Admin Acetaminophen/ Hydrocodone Bitart 1 tab Q4HP PRN PO 05/01/24 11:15 05/02/24 09:41 1 TAB Ondansetron HCl 4 mg Q4HP PRN IV 05/01/24 11:15 Acetaminophen 650 mg Q6HP PRN PO 05/01/24 11:15 Morphine Sulfate 2 mg Q4HPRN PRN IV 05/01/24 11:15 05/01/24 18:12 2 MG Piperacillin Sod/ Tazobactam Sod 100 ml @ 25 mls/hr Q8H IV 05/01/24 18:00 05/02/24 09:14 25 MLS/HR Diagnostic Test (Pha) 1 strip ACHS 05/01/24 11:30 05/01/24 22:04 1 STRIP Insulin Human Regular ACHS SC 05/01/24 11:30 05/02/24 06:17 3 UNITS Dextrose 50 ml UD PRN IV 05/01/24 11:15 Aspirin 81 mg DAILY PO 05/02/24 10:00 05/02/24 09:12 81 MG Clopidogrel Bisulfate 75 mg DAILY PO 05/02/24 10:00 05/02/24 09:12 75 MG Tamsulosin HCl 0.4 mg DAILY PO 05/02/24 10:00 05/02/24 09:13 0.4 MG Atorvastatin Calcium 40 mg HS PO 05/01/24 22:00 05/01/24 22:04 40 MG Laboratory Results Laboratory Tests 05/02/24 05:40 Chemistry Test 05/02/24 05:40 Albumin 3.3 g/dL (3.2-4.8) Calcium Level 8.5 mg/dL (8.7-10.4) L Total Protein 6.1 g/dL (5.7-8.2) Coagulation Test 05/02/24 05:40 Prothrombin Time 11.4 sec (9.3-11.8) Prothrombin Time INR 1.08 (0.9-1.15) Activated Partial Thromboplast Time 35.3 SEC (24.5-34.5) H LFT Test 05/02/24 05:40 Alanine Aminotransferase (ALT) < 9 U/L (7-40) Alkaline Phosphatase 73 U/L (46-116) Aspartate Amino Transferase (AST) 9 U/L (13-40) L Total Bilirubin 0.4 mg/dL (0.2-1.0) Urinalysis Test 05/01/24 08:18 Urine Color Light-orange (Yellow) Urine Clarity Ex.turbid (Clear) Urine pH 6.0 (5.0-9.0) Urine Specific [place] 1.017 (1.001-1.035) Urine Protein 3+ (Negative) H Urine Ketones Negative (Negative) Urine Blood 2+ /uL (Negative) H Urine Nitrite 1+ (Negative) H Urine Bilirubin Negative (Negative) Urine Urobilinogen Normal mg/dL (Negative) Urine Leukocyte Esterase 3+ /uL (Negative) Urine RBC 51 /hpf (0 - 3) Urine WBC Clumps Present /hpf (None Seen) Urine Microscopic WBC 3789 /HPF (0-3) H Urine Squamous Epithelial Cells None seen /hpf (<5) Urine Bacteria None seen /hpf (None Seen) Urine Hyaline Casts Mod /lpf (0 - 2) Urine Glucose 4+ mg/dL (Normal) DURGA ROBERSON MD May 02, 2024 10:59
--- NOTE | 2024-05-02 11:50 | DVHDS2 ---
Discharge Summary Date of Admission May 01, 2024 at 11:03 Date of Discharge: May 02, 2024 Admitting Diagnosis Intractable left flank pain Severe left hydronephrosis with obstructing calculus in the proximal left ureter measuring up to 4.5 mm nonobstructing bilateral renal calculi Cholelithiasis Hepatic steatosis Acute cystitis umbilical hernia Leukocytosis likely due to acute cystitis Azotemia Diabetes type 2 Hard of hearing no hearing aids Hypertension Hyperlipidemia History of [place] status post PTCA x2 YVAN in January of 2024 Labs/Diagnostic Data: Laboratory Results Test 05/02/24 05:40 05/02/24 05:19 05/01/24 08:18 05/01/24 05:54 White Blood Count 9.8 10^3/uL (4.4-10.8) Red Blood Count 3.78 10^6/uL (4.5-5.90) Hemoglobin 11.1 g/dL (13.5-17.5) Hematocrit 32.2 % (41.0-53.0) Mean Corpuscular Volume 85.1 fL (80.0-100.0) Mean Corpuscular Hemoglobin 29.3 pg (28.0-32.0) Mean Corpuscular Hemoglobin Concent 34.4 g/dL (32.0-36.0) Red Cell Distribution Width 14.4 % (11.8-14.3) Platelet Count 218 10^3/uL (140-450) Mean Platelet Volume 8.1 fL (6.9-10.8) Neutrophils (%) (Auto) 66.8 % (37.0-80.0) Lymphocytes (%) (Auto) 21.6 % (10.0-50.0) Monocytes (%) (Auto) 9.4 % (0.0-12.0) Eosinophils (%) (Auto) 1.4 % (0.0-7.0) Basophils (%) (Auto) 0.8 % (0.0-2.0) Neutrophils # (Auto) 6.6 10 ^3/uL (1.6-8.6) Lymphocytes # (Auto) 2.1 10 ^3/uL (0.4-5.4) Monocytes # (Auto) 0.9 10 ^3/uL (0-1.3) Eosinophils # (Auto) 0.1 10 ^3/uL (0-0.8) Basophils # (Auto) 0.1 10 ^3/uL (0-0.2) Nucleated Red Blood Cells 0.0 % Prothrombin Time 11.4 sec (9.3-11.8) Prothrombin Time INR 1.08 (0.9-1.15) Activated Partial Thromboplast Time 35.3 SEC (24.5-34.5) Sodium Level 137 mmol/L (136-145) Potassium Level 4.1 mmol/L (3.5-5.1) Chloride Level 105 mmol/L (98-107) Carbon Dioxide Level 22 mmol/L (20-31) Anion Gap 10 (5-15) Blood Urea Nitrogen 40 mg/dL (9-23) Creatinine 2.93 mg/dL (0.700-1.30) Glomerular Filtration Rate Calc 22 mL/min (>90) BUN/Creatinine Ratio 13.7 (10.0-20.0) Serum Glucose 162 mg/dL (74-106) Calcium Level 8.5 mg/dL (8.7-10.4) Total Bilirubin 0.4 mg/dL (0.2-1.0) Aspartate Amino Transferase (AST) 9 U/L (13-40) Alanine Aminotransferase (ALT) < 9 U/L (7-40) Alkaline Phosphatase 73 U/L (46-116) Total Protein 6.1 g/dL (5.7-8.2) Albumin 3.3 g/dL (3.2-4.8) POC Glucose 172 mg/dl (70-106) Urine Color Light-orange (Yellow) Urine Clarity Ex.turbid (Clear) Urine pH 6.0 (5.0-9.0) Urine Specific [place] 1.017 (1.001-1.035) Urine Protein 3+ (Negative) Urine Ketones Negative (Negative) Urine Blood 2+ /uL (Negative) Urine Nitrite 1+ (Negative) Urine Bilirubin Negative (Negative) Urine Urobilinogen Normal mg/dL (Negative) Urine Leukocyte Esterase 3+ /uL (Negative) Urine RBC 51 /hpf (0 - 3) Urine WBC Clumps Present /hpf (None Seen) Urine Microscopic WBC 3789 /HPF (0-3) Urine Squamous Epithelial Cells None seen /hpf (<5) Urine Bacteria None seen /hpf (None Seen) Urine Hyaline Casts Mod /lpf (0 - 2) Urine Glucose 4+ mg/dL (Normal) Hemoglobin A1c 9.4 % A1C (<5.7) Lipase 32 U/L (12-53) Other Laboratory Tests 05/02/24 05:40 Brief Hx & Hospital Course: This is a 74 years old male with past medical history hypertension, hyperlipidemia, diabetes, [place] recently in January 2024 with PTCA x2 come to emergency department with left flank pain for three days. Patient also reports that he has had multiple kidney stones in the last 5 years and has had to have multiple procedures done. The patient was found to have obstructive uropathy with CT scan abdomen pelvis without contrast showed: Severe left hydronephrosis with obstructing calculus in the proximal left ureter measuring up to 4.5 mm. Moderate left perinephric stranding. There is mild stranding adjacent to the pancreatic tail, appears to be coursing from the process in the left kidney described above. Acute pancreatitis would be less likely, although not excluded correlate with clinical findings. Additional nonobstructing bilateral renal calculi. Cholelithiasis. Hepatic steatosis. Mild circumferential thickening of the bladder wall is nonspecific. Correlate clinically to exclude cystitis. Moderate fat containing umbilical hernia. The patient was took to the OR yesterday for cystoscopy and left renal stent placed. During the procedure the patient was found to have bladder outlet obstruction. The patient need lithotripsy in two to three weeks per Dr. Santos, urologist. So I am going to discharge him home today. Advised him to follow up with primary care physician 1-2 weeks. Follow up with Dr. Santos per schedule for lithotripsy. Activity as tolerated. Diet per home diet. Recommend low-salt low-protein diet. Recommend drinking lots of water. Physical exam: HEENT: Normocephalic atraumatic pupils equal react to light and accommodation. Extraocular muscles intact, conjunctiva pink, oropharynx moist, no thrush, no exudate. Lymphatic: No lymphadenopathy Cardiovascular exam: S1, S2 was heard. No murmurs, rubs, gallops Lung: Clear on auscultation bilaterally, no wheeze, rale, rhonchi. GI: Abdominal soft, nondistended, nontenderness, positive bowel sounds. Extremity: No crepitus, cyanosis, edema. Pedal pulses present bilateral. Full range of motion. Skin: Normal turgor, no rash. Psych: Alert, oriented x3. Neurology: No focal deficits, cranial nerve II to XII grossly intact. This medical document was created using an electronic medical record system with [employer] direct computerized dictation system. Although this document has been carefully reviewed, there may still be some phonetic and typographical errors. These areas are purely typographical due to imperfections of the software programs, and do not reflect any compromise in the patient's medical care. Condition at Discharge: Stable Final Diagnosis/Problems List Intractable left flank pain Severe left hydronephrosis with obstructing calculus in the proximal left ureter measuring up to 4.5 mm nonobstructing bilateral renal calculi Bladder outlet obstruction Cholelithiasis Hepatic steatosis Acute cystitis umbilical hernia Leukocytosis likely due to acute cystitis Azotemia Diabetes type 2 Hard of hearing no hearing aids Hypertension Hyperlipidemia History of [place] status post PTCA x2 YVAN in January of 2024 Discharge Disposition: Home Discharge Instruct/Medications Activity: No Restrictions, As Tolerated Follow Up/Referral: pcp 1-2 weeks [facility] urologist per schedule Medications: See med list. Discharge Statement: "Patient was advised to return to the ER or call 911 if any headaches, dizziness, shortness of breath, chest pain, abdominal pain, bleeding, fevers, or worsening of medical condition. Patient was counseled about treatment plan, medications, possible side effects, patientverbalized understanding. All questions were answered to the best of my ability. This discharge took greater then 30 minutes in planning, reviewing documentation, counseling the patient, and discussing with other team members." ASSESSMENT ASSESSMENT Assessment Same Date of Service: May 02, 2024 Billing Provider: DURGA BOSE MD Common Visit Codes: 03799-MTI/OBS DISCH DAY >30min DURGA BOSE MD May 02, 2024 11:50
[2024-05-02] MEDS ORDERED: HYDR-4798 PO (11:51)
[2024-05-02] MEDS ORDERED: AUG875T PO (11:51)
[2024-05-02 12:21] VITALS: BP 118/69; PULSE 59; RESP 20; TEMP 97.8; O2SAT 91
[2024-05-02 13:42] VITALS: BP 118/69; PULSE 59; RESP 20; TEMP 97.8; O2SAT 91
== END 2024-05-02 14:25 | disposition home or self-care (01) | DRG 660 ==
LOC: ER 03:47 → EDBD 03:47 → OVERFLOW 11:03 → EAST 16:21
PROVIDERS: ADMIT Internal Medicine; ATTEND Internal Medicine
PROC: BT1F1ZZ Fluoroscopy of Left Kidney, Ureter and Bladder using Low Osmolar Contrast (ICD-10-PCS; 2024-05-01)
PROC: 0T778DZ Dilation of Left Ureter with Intraluminal Device, Via Natural or Artificial Opening Endoscopic (ICD-10-PCS; principal; 2024-05-01 19:54)
DX: N13.6 Pyonephrosis (principal); N13.8 Other obstructive and reflux uropathy; N20.2 Calculus of kidney with calculus of ureter; K80.20 Calculus of gallbladder without cholecystitis without obstruction; K42.9 Umbilical hernia without obstruction or gangrene; K76.0 Fatty (change of) liver, not elsewhere classified; E11.9 Type 2 diabetes mellitus without complications; E78.5 Hyperlipidemia, unspecified; I10 Essential (primary) hypertension; Z98.61 Coronary angioplasty status; Z79.4 Long term (current) use of insulin; Z79.899 Other long term (current) drug therapy; Z79.84 Long term (current) use of oral hypoglycemic drugs; I25.2 Old myocardial infarction; Z80.1 Family history of malignant neoplasm of trachea, bronchus and lung
CPT/HCPCS: 36415; 74021; 74176; 76000; 76775; 80053; 81001; 82962; 83036; 83690; 85025; 85610; 85730; 96365; G0378; J1815; J2250; J2543; J2704

== ENCOUNTER 2024-08-14 00:51 | Inpatient (IN) | payer OTHER ==
[~2024-08-14] VITALS: Ht 177.8 cm; Wt 125.4 kg
[~2024-08-14 00:51] MED LIST changes: +ASPI-325 PO; +ATOR40TA52 PO; +AUG875T PO; +CLOP75TA70 PO; +TAMS0.4C39 PO
--- NOTE | 2024-08-14 01:26 | ED.PDOC ---
GI ASSESSMENT HPI Comments 74 year old male presents to the ED via EMS with a chief complaint of diarrhea onset 1 day. Patient states he began experiencing diarrhea 1 day ago, loose stool, bowel movement about every 2 hours. He has also been experiencing LLQ pain, nausea, vomiting, fevers. Patient was discharged from [facility] 4 days ago, was admitted for UTI, was discharged on antibiotics. PMHx HTN, DC, DM. Denies chest pain, shortness of breath, dizziness, chills, blood in stool, hematuria, dysuria, cough, congestion. No other symptoms or modifying factors present at this time. Chief Complaint: Abdominal Pain Time Seen by MD: 01:15 Primary Care Provider: HI Reviewed Notes: Medications, Allergies Allergies: Coded Allergies: Atorvastatin (Verified Allergy, Unknown, 08/14/24) Home Meds Active Scripts Amoxicillin & Pot Clavulanate (AUGMENTIN TABLET) 875 Mg Tb, 875 MG PO BID, #20 TAB Prov:DURGA BOSE MD 05/02/24 Hydrocodone-Acetaminophen (Hydrocodone Bitartrate/AC 10-325 mg) 1 Tab Tab, 1 TAB PO BID, #20 TAB Prov:DURGA BOSE MD 05/02/24 Aspirin (Aspir-81) 81 Mg Tab, 1 TAB PO DAILY PRN for 30 Days, #30 TAB 3 Refills Prov:TEMI CRENSHAW MD 01/24/24 Clopidogrel Bisulfate (Plavix) 75 Mg Tab, 75 MG PO DAILY for 30 Days, #30 TAB 3 Refills Prov:TEMI CRENSHAW MD 01/24/24 Reported Medications Clopidogrel Bisulfate (CLOPIDOGREL) 75 Mg Tab, 1 TAB PO DAILY 05/01/24 Tamsulosin Hcl (Tamsulosin Hcl) 0.4 Mg Cap, CAP PO 05/01/24 Atorvastatin Calcium (ATORVASTATIN CALCIUM) 40 Mg Tab, 1 TAB PO 05/01/24 Aspirin (Aspirin Low Dose) 81 Mg Tab, 1 TAB PO DAILY 05/01/24 Insulin Glargine-Yfgn (Insulin Glargine) 100 Unit/Ml Inj, 60 UNIT SC DAILY, INJ 01/22/24 Methocarbamol (Methocarbamol) 500 Mg Tab, 500 MG PO PRN for muscle spasms for 30 Days, MG 01/22/24 Amlodipine Besylate-Atorvastat (Amlodipine Besylate/Atorv 5-20 mg) 1 Tab Tab, 1 TAB PO, TAB 10/14/20 Liraglutide (Victoza) 18 Mg/3 Ml Inj, 1.8 MG SUBCUT DAILY, #9 ML 3 Refills 10/14/20 Insulin Aspart Protamine & Asp (Insulin Aspart Protamine/ (70-30) 100 Unit/ml) 1 Inj Inj, 10 INJ SC, INJ 10/14/20 Information Source: Patient, Emergency Med Personnel Mode of Arrival: EMS Timing: Days Duration: Since onset Prehospital treatment: Other (zofran) Quality: Sharp Stool: Loose Severity: Moderate Recent: None Recent Hx of: None Pain Location: LLQ Modifying Factors: Nothing Associated sign and symptoms: Nausea, Vomiting, Diarrhea, Abdominal Pain, Fever Vital Signs Vital Signs Date Time Temp Pulse Resp B/P (MAP) Pulse Ox O2 Delivery O2 Flow Rate FiO2 08/14/24 04:00 85 08/14/24 03:30 98.6 19 146/71 (96) 96 98.6 08/14/24 03:05 Nasal Cannula* 2 28 Physical Exam General: Awake, alert and oriented. No acute distress. Skin: Skin in warm, dry and intact. Appropriate color for ethnicity. HEENT: The head is normocephalic and atraumatic. Conjunctivae are clear without exudates or hemorrhage. Sclera is non-icteric. EOM are intact. No signs of nystagmus. Eyelids are normal in appearance without swelling or lesions. Oral mucosa is pink and moist Neck: The neck is supple with normal range of motion. No JVD. Cardiac: Heart rate and rhythm are normal. No murmurs, gallops, or rubs are auscultated. Respiratory: No signs of respiratory distress. Lung sounds are clear in all lobes bilaterally without rales, rhonchi, or wheezes. Abdominal: Abdomen is soft, generally-tender without distention, guarding or rigidity. Bowel sounds are present and normoactive in all four quadrants. Neurological: The patient is awake, alert and oriented to person, place, and time with normal speech. Speech is clear. There is no facial asymmetry. Review of Systems: As stated in HPI Past Medical History PAST MEDICAL HISTORY: DM, HTN, Kidney Stones, DC Surgical History: PTCA Family History Family History: Unknown Social History Smoker: Non-Smoker Alcohol: Denies ETOH Use Drugs: Denies Drug Use Lives In: Home Was a procedure done? Was a procedure done?: No GI differential Dx Differential Diagnosis: Gastritis/PUD, Gastroenteritis, Hepatitis, Inflammatory BD, Dehydration, Electrolyte Imbalance, Food Poisoning, Bacterial, Parasitic, Viral, Hypovolemia, Malnutrition, Ischemic Bowel, Other (Colitis, diverticulitis, other) X-Ray, Labs, Meds, VS Vital Signs Date Time Temp Pulse Resp B/P (MAP) Pulse Ox O2 Delivery O2 Flow Rate FiO2 08/14/24 04:00 85 08/14/24 03:30 98.6 83 19 146/71 (96) 96 98.6 08/14/24 03:11 86 18 153/79 08/14/24 03:05 89 20 97 Nasal Cannula* 2 28 08/14/24 01:26 98.2 93 18 140/76 (97) 94 98.2 08/14/24 00:54 97.7 91 17 178/99 (125) 97 97.7 Lab Test 08/14/24 04:47 08/14/24 01:34 Range/Units Urine Color Light-orange Yellow Urine Clarity Ex.turbid Clear Urine pH 6.0 5.0-9.0 Urine Specific [place] 1.026 1.001-1.035 Urine Protein 3+ H Negative Urine Ketones Negative Negative Urine Blood 3+ H Negative /uL Urine Nitrite 1+ H Negative Urine Bilirubin Negative Negative Urine Urobilinogen Normal Negative mg/dL Urine Leukocyte Esterase 3+ Negative /uL Urine RBC 194 0 - 3 /hpf Urine WBC Clumps Present None Seen /hpf Urine Microscopic WBC 1703 H 0-3 /HPF Urine Squamous Epithelial Cells None seen <5 /hpf Urine Bacteria None seen None Seen /hpf Urine Glucose 2+ H Normal mg/dL White Blood Count 10.6 4.4-10.8 10^3/uL Red Blood Count 4.49 L 4.5-5.90 10^6/uL Hemoglobin 11.6 L 13.5-17.5 g/dL Hematocrit 36.4 L 41.0-53.0 % Mean Corpuscular Volume 81.0 80.0-100.0 fL Mean Corpuscular Hemoglobin 25.9 L 28.0-32.0 pg Mean Corpuscular Hemoglobin Concent 32.0 32.0-36.0 g/dL Red Cell Distribution Width 17.5 H 11.8-14.3 % Platelet Count 353 140-450 10^3/uL Mean Platelet Volume 7.0 6.9-10.8 fL Neutrophils (%) (Auto) 60.8 37.0-80.0 % Lymphocytes (%) (Auto) 28.0 10.0-50.0 % Monocytes (%) (Auto) 8.0 0.0-12.0 % Eosinophils (%) (Auto) 2.3 0.0-7.0 % Basophils (%) (Auto) 0.9 0.0-2.0 % Neutrophils # (Auto) 6.4 1.6-8.6 10 ^3/uL Lymphocytes # (Auto) 3.0 0.4-5.4 10 ^3/uL Monocytes # (Auto) 0.8 0-1.3 10 ^3/uL Eosinophils # (Auto) 0.2 0-0.8 10 ^3/uL Basophils # (Auto) 0.1 0-0.2 10 ^3/uL Nucleated Red Blood Cells 0.0 % Sodium Level 137 136-145 mmol/L Potassium Level 4.9 3.5-5.1 mmol/L Chloride Level 110 H 98-107 mmol/L Carbon Dioxide Level 18 L 20-31 mmol/L Anion Gap 9 5-15 Blood Urea Nitrogen 32 H 9-23 mg/dL Creatinine 2.72 H 0.700-1.30 mg/dL Glomerular Filtration Rate Calc 24 >90 mL/min BUN/Creatinine Ratio 11.8 10.0-20.0 Serum Glucose 159 H 74-106 mg/dL Hemoglobin A1c 8.0 H <5.7 % A1C Calcium Level 9.2 8.7-10.4 mg/dL Total Bilirubin 0.3 0.2-1.0 mg/dL Aspartate Amino Transferase (AST) 14 13-40 U/L Alanine Aminotransferase (ALT) < 9 7-40 U/L B-Type Natriuretic Peptide 77.00 0-100 pg/mL Microbiology Date/Time Source Procedure Growth Status 08/14/24 04:47 Voided Urine Urine Culture - Preliminary Resulted Time of 1ST Reevaluation: 01:45 Reevaluation 1ST: Unchanged Patient Education/Counseling: Need For Follow Up Family Education/Counseling: No Family Present SEPSIS Sepsis Screen Date sepsis recognized/suspect: Aug 14, 2024 Time Sepsis recognized/suspect: 0050 Recent Procedure: No On Antibiotic Therapy: Yes Respiratory Rate >20: No Heart Rate >90: Yes Temp<36 C (96.8 F) or >38.3 C: No SBP <90 or MAP <65 mmHG: No New Acute Mental Status Change: No Is the patient on CPAP, BIPAP,: No Physician Orders Ct Ab Pel Wo Con-No Oral Or Iv (08/14/24 01:23) Vital Signs Date Time Temp Pulse Resp B/P (MAP) Pulse Ox O2 Delivery O2 Flow Rate FiO2 08/14/24 04:00 85 08/14/24 03:30 98.6 83 19 146/71 (96) 96 98.6 08/14/24 03:11 86 18 153/79 08/14/24 03:05 89 20 97 Nasal Cannula* 2 28 08/14/24 01:26 98.2 93 18 140/76 (97) 94 98.2 08/14/24 00:54 97.7 91 17 178/99 (125) 97 97.7 Laboratory Tests Test 08/14/24 01:34 White Blood Count 10.6 10^3/uL (4.4-10.8) Departure 1 Departure Time of Disposition: 02:37 Impression: Primary Impression: Abdominal pain Additional Impression: Acute renal failure Disposition: ADMITTED INPATIENT Condition: Stable Comments Extensive evaluation was performed in attempt to identify or rule out: (See differential diagnosis section) The following tests were ordered, and results were reviewed by me and discussed with patient: (See diagnostic results section) The following test were independently interpreted by me: N/A I reviewed and agreed with the following test results read by other providers: N/A I reviewed the following notes from the pt's past medical encounters: N/A Additional information was gathered from interviewing the following independent historians: N/A Discussion of management or test interpretation with external physician/other qualified health child care attendant school: N/A Addressed an acute or chronic illness that poses a threat to life or bodily function: Acute renal failure Decision regarding hospitalization or escalation of hospital level of care: Risk and benefits of admission for further treatment of patient's condition was considered. Due to patient's current clinical condition, high risk of decline and poor outcome if discharged and need for further inpatient management and monitoring, patient will be admitted to the hospital. Drug therapy requiring intensive monitoring for toxicity: N/A Parenteral controlled substances: IV morphine Decision regarding elective major surgery with identified patient or procedure risk factors: N/A Decision regarding emergency major surgery: N/A Decision not to resuscitate or to de-escalate care because of poor prognosis: N/A Diagnosis or treatment significantly limited by social determinants of health: N/A Critical Care Note Critical Care Time?: No Stability Stability form required: No I personally scribed for ELISHA HARRIS MD ([email or web address]) on 08/14/24 at 01:26. Electronically submitted by Daina Aguilar ([email or web address]). ELISHA HARRIS MD Aug 14, 2024 01:26
[2024-08-14 01:49] LABS: Hemoglobin 11.6 g/dL (13.5-17.5); Nucleated Red Blood Cells % 0.0 %
[2024-08-14 01:51] LABS: Hematocrit 36.4 % (41.0-53.0); Mean Corpuscular Hemoglobin 25.9 pg (28.0-32.0); Mean Corpuscular Volume 81.0 fL (80.0-100.0)
[2024-08-14 01:59] LABS: Potassium 4.9 mmol/L (3.5-5.1); Sodium 137 mmol/L (136-145)
[2024-08-14 02:00] LABS: Anion Gap 9 (5-15)
[2024-08-14 02:01] LABS: Calcium 9.2 mg/dL (8.7-10.4)
[2024-08-14 02:03] LABS: Carbon Dioxide 18 mmol/L (20-31); Chloride 110 mmol/L (98-107)
[2024-08-14 02:06] LABS: BUN/Creatinine Ratio 11.8 (10.0-20.0); Blood Urea Nitrogen 32 mg/dL (9-23); Glucose 159 mg/dL (74-106)
--- NOTE | 2024-08-14 02:29 | DVH ---
Exam: CT CT AB PEL WO CON-NO ORAL OR IV History: Left lower quadrant abdominal pain, diarrhea Comparison Study: CT CT AB PEL WO CON-NO ORAL OR IV on DOS: 05/01/24 Technique: Multidetector spiral CT of the abdomen was performed from lung bases to pubic symphysis. I maging was performed without IV contrast. Axial, coronal and sagittal multiplanar reformats were obta ined from the axial data set by the technologist. Radiation Dose : 1. Abdomen/Pelvis: CTDIvol 27.45 mGy, DLP 1660.49 mGy*cm. Findings: Evaluation of solid organs is limited due to lack of intravenous contrast use. Lung Bases: No acute or significant lung base finding. Normal heart size. No pleural or pericardial effusion. Liver: The liver is enlarged, measuring 21.7 cm in craniocaudal dimension.. No focal lesions. Gallbladder and Biliary Tree: Multiple calcified gallstones within the gallbladder. Spleen: Unremarkable Pancreas: The pancreas is grossly normal in appearance. Adrenal Glands: Unremarkable Kidneys: Pronounced left hydronephrosis and ureteral dilatation as well as perinephric stranding and evidence of cortical thinning. No identifiable obstructive etiology. Multiple nonobstructing bilatera l pelvocaliceal calculi are noted. Bladder: Grossly unremarkable for degree of distention. Bowel: The stomach is grossly normal in appearance. Small bowel and colon are normal in caliber and d istribution. Diverticulosis coli without CT evidence of acute diverticulitis. The appendix is normal. Ascites: Absent Lymphadenopathy: No mesenteric, retroperitoneal or periportal lymphadenopathy. Abdominal Wall and Mesentery: Fat containing umbilical hernia. Vasculature: The visualized abdominal aorta is normal in size and caliber. Atherosclerotic vascular c alcifications. Evaluation of abdominal and pelvic vessels is limited due to lack of intravenous cont rast. Pelvic Organs: Unremarkable Musculoskeletal: No aggressive focal bony lesions, acute fractures or dislocation. IMPRESSION: 1. Cholelithiasis. 2. Hepatomegaly. 3. Marked left hydroureteronephrosis with perinephric stranding and evidence of cortical thinning sug gestive of a chronic process. No identifiable obstructive etiology. 4. Bilateral nephrolithiasis. 5. Diverticulosis coli without CT evidence of acute diverticulitis. Radiation optimization: All CT scans at this facility use at least one of these dose optimization altagracia hniques: automated exposure control mA and/or kV adjustment per patient size (includes targeted exam s where dose is matched to clinical indication) or iterative reconstruction.
[2024-08-14 03:05] VITALS: PULSE 89; RESP 20; O2SAT 97
[2024-08-14] MEDS: ONDANSETRON HCL 4 MG/2 ML VIAL IV ONE ×2 (03:10→05:30)
[2024-08-14] MEDS: SODIUM CHLORIDE 0.9% 1,000 ML IV ONE (03:10)
[2024-08-14] MEDS: MORPHINE SULFATE INJ 2 MG/ml SYRG IV ONE ×2 (03:11→16:44)
[2024-08-14] MEDS ORDERED: MORPHINE SULFATE INJ 2 MG/ml SYRG IV PRN (05:00)
[2024-08-14] MEDS ORDERED: NITROGLYCERIN 0.4 MG SL TAB SL PRN (05:00)
[2024-08-14 05:12] LABS: Urine Protein, UAD 3+ (Negative); Urine WBC Clumps PRESENT /hpf (None Seen)
[2024-08-14] MEDS ORDERED: DEXTROSE (50%) 50ML SYRG IV PRN (05:15)
[2024-08-14] MEDS: ACETAMINOPHEN 325 MG TAB PO PRN (05:54)
[2024-08-14] MEDS: FAMOTIDINE (10MG/ML) 2ML VL IV ONE (05:55)
[2024-08-14] MEDS: SODIUM CHLORIDE 0.9% 1,000 ML IV SCH (05:55)
--- NOTE | 2024-08-14 05:56 | DVHHP2 ---
History of Present Illness History of Present Illness This is a 74-year-old male with past medical history of HTN, HLD, CAD with 2 stent January 2024, bilateral renal stone, type 2 diabetes mellitus, low-back p ain, BPH, morbid obesity came to ER with the complaint of diarrhea for 4 days which is worsen last 2 days. Passage of loose stool every 2 hour whenever he eat anything. Patient also have left lower quadrant abdominal pain for last 2 days which is stabbing in nature, localized, intermittent, 6/10 intensity, does not radiates associated with nausea but no vomiting. Patient denies any recent history of eating outside or street foods,sick contact. Patient was discharged from [facility] days ago, was admitted for UTI, was discharged on antibiotics, remove left ureteric stent. Patient also had fever 3 days earlier and took Tylenol. Used electric scooter for movement. Able to ambulate with walker before heart attack six-month ago. Currently denies any headache, chest pain, SOB, cough, dysuria, fever, hematuria, hematochezia, dizziness. PAST MEDICAL HISTORY: HTN, HLD, CAD with 2 stent January 2024, bilateral renal stone, type 2 diabetes mellitus, low-back pain, BPH, morbid obesity Surgical History: PTCA-January 2024 Family History: Unknown Social History Smoker: ex-Smoker, quit 15 years ago Alcohol: Denies ETOH Use Drugs: Denies Drug Use Lives In: Home Allergy: Atorvastatin PCP: [facility] [place] Review of Systems Constitutional: Yes: Malaise, Other (OBESE); No: Fever, Chills, Sweats, Weakness Eyes: No: Pain, Vision change, Conjunctivae inflammation, Eyelid inflammation, Other, Redness ENT: No: Ear pain, Ear discharge, Nose pain, Nose discharge, Nose congestion, Mouth pain, Mouth swelling, Throat pain, Throat swelling, Other Respiratory: No: Cough, Dry, Shortness of breath, SOB with excertion, Wheezing, Hemoptysis, Pleuritic Pain, Sputum, Wheezing, Other Cardiovascular: Edema (1+ BILATERAL LOWER EXTREMITY EDEMA); No: Chest Pain, Palpitations, Orthopnea, Paroxysmal Noc. Dyspnea, Lt Headedness, Other Gastrointestinal: Nausea, Abdominal Pain, Diarrhea Genitourinary: No Dysuria, No Frequency, No Incontinence, No Hematuria, No Retention, No Other Musculoskeletal: No: other, neck pain, shoulder pain, arm pain, back pain, hand pain, leg pain, foot pain Skin: No: Rash, Lesions, Jaundice, Bruising, Other Neurological: Other (BILATERAL LOWER EXTREMITY DECREASED MOTOR STRENGTH) Allergies: Coded Allergies: Atorvastatin (Verified Allergy, Unknown, 08/14/24) Medications Current Medications Medications Dose Ordered Sig/Meli Route Start Time Stop Time Status Last Admin Dose Admin Nitroglycerin 0.4 mg Q5MINP PRN SL 08/14/24 05:00 Morphine Sulfate 2 mg Q30M PRN IV 08/14/24 05:00 Exam Vital Signs Vital Signs Date Time Temp Pulse Resp B/P (MAP) Pulse Ox O2 Delivery O2 Flow Rate FiO2 08/14/24 04:00 85 08/14/24 03:30 98.6 19 146/71 (96) 96 98.6 08/14/24 03:05 Nasal Cannula* 2 28 General Appearance: Alert, Oriented X3, Cooperative HEENT: Atraumatic, PERRLA Respiratory: Clear to auscultation, Normal air movement Cardiovascular: Regular rate, Normal S1, Normal S2 Abdominal: Normal bowel sounds, Soft, Other (TENDERNESS PRESENT LLQ OF ABDOMEN ON DEEP PALPATION) Extremities: No clubbing, No cyanosis, Other (1+ BILATERAL LOWER EXTREMITY EDEMA) Skin: No rashes (CHRONIC SKIN CHANGES BILATERAL LOWER EXTREMITY), No breakdown Neuro: Normal speech, Other (DECREASED MOTOR STRENGTH BILATERAL LOWER EXTREMITY) Labs/Xrays Labs Test 08/14/24 04:47 08/14/24 01:34 Range/Units White Blood Count 10.6 4.4-10.8 10^3/uL Red Blood Count 4.49 L 4.5-5.90 10^6/uL Hemoglobin 11.6 L 13.5-17.5 g/dL Hematocrit 36.4 L 41.0-53.0 % Mean Corpuscular Volume 81.0 80.0-100.0 fL Mean Corpuscular Hemoglobin 25.9 L 28.0-32.0 pg Mean Corpuscular Hemoglobin Concent 32.0 32.0-36.0 g/dL Red Cell Distribution Width 17.5 H 11.8-14.3 % Platelet Count 353 140-450 10^3/uL Mean Platelet Volume 7.0 6.9-10.8 fL Neutrophils (%) (Auto) 60.8 37.0-80.0 % Lymphocytes (%) (Auto) 28.0 10.0-50.0 % Monocytes (%) (Auto) 8.0 0.0-12.0 % Eosinophils (%) (Auto) 2.3 0.0-7.0 % Basophils (%) (Auto) 0.9 0.0-2.0 % Neutrophils # (Auto) 6.4 1.6-8.6 10 ^3/uL Lymphocytes # (Auto) 3.0 0.4-5.4 10 ^3/uL Monocytes # (Auto) 0.8 0-1.3 10 ^3/uL Eosinophils # (Auto) 0.2 0-0.8 10 ^3/uL Basophils # (Auto) 0.1 0-0.2 10 ^3/uL Nucleated Red Blood Cells 0.0 % Sodium Level 137 136-145 mmol/L Potassium Level 4.9 3.5-5.1 mmol/L Chloride Level 110 H 98-107 mmol/L Carbon Dioxide Level 18 L 20-31 mmol/L Anion Gap 9 5-15 Blood Urea Nitrogen 32 H 9-23 mg/dL Creatinine 2.72 H 0.700-1.30 mg/dL Glomerular Filtration Rate Calc 24 >90 mL/min BUN/Creatinine Ratio 11.8 10.0-20.0 Serum Glucose 159 H 74-106 mg/dL Calcium Level 9.2 8.7-10.4 mg/dL SEPSIS Sepsis Screen Date sepsis recognized/suspect: Aug 14, 2024 Time Sepsis recognized/suspect: 134 Recent Procedure: No On Antibiotic Therapy: No Respiratory Rate >20: No Heart Rate >90: No Temp<36 C (96.8 F) or >38.3 C: No SBP <90 or MAP <65 mmHG: No New Acute Mental Status Change: No Is the patient on CPAP, BIPAP,: No Physician Orders Ct Ab Pel Wo Con-No Oral Or Iv (08/14/24 01:23) Clostridium Difficile Toxin (08/14/24 01:23) Urinalysis (08/14/24 02:36) Admit (08/14/24 05:00) Nitroglycerin Sublingual (Ntrostat Subli (08/14/24 05:00) Morphine Sulfate Injection (08/14/24 05:00) Oxygen By Nasal Cannula (08/14/24 05:00) NS (08/14/24 05:15) Metronidazole Ivpb Flagyl (08/14/24 06:00) Metronidazole Ivpb Flagyl (08/14/24 05:15) Ondansetron Hcl (Zofran) (08/14/24 05:15) Ondansetron Hcl (Zofran) (08/14/24 05:15) Sodium Bicarb Tab (08/14/24 10:00) Glucose Blood (Accu-Chek Comfort Curve T (08/14/24 07:00) Bedtime Insulin Scale (08/14/24 22:00) Moderate Insulin Ss (08/14/24 07:00) Dextrose 50% Syringe (08/14/24 05:15) * Urology Consult (08/14/24 05:01) Alanine Aminotransferase (08/14/24 05:01) Aspartate Amino Transferase (08/14/24 05:01) Bilirubin, Total (08/14/24 05:01) Amlodipine Tablet (Norvasc Tablet) (08/14/24 10:00) Aspirin Tablet (08/14/24 10:00) Clopidogrel Bisulfate (Plavix) (08/14/24 10:00) Acetaminophen Tablet (Tylenol Tablet) (08/14/24 05:15) Tamsulosin Hydrochloride (Flomax) (08/14/24 18:00) Clear Liq Diet (08/14/24 Breakfast) Heparin Sodium (Porcine) (08/14/24 10:00) Vital Signs Date Time Temp Pulse Resp B/P (MAP) Pulse Ox O2 Delivery O2 Flow Rate FiO2 08/14/24 04:00 85 08/14/24 03:30 98.6 83 19 146/71 (96) 96 98.6 08/14/24 03:11 86 18 153/79 08/14/24 03:05 89 20 97 Nasal Cannula* 2 28 08/14/24 01:26 98.2 93 18 140/76 (97) 94 98.2 08/14/24 00:54 97.7 91 17 178/99 (125) 97 97.7 Laboratory Tests Test 08/14/24 01:34 White Blood Count 10.6 10^3/uL (4.4-10.8) Medications Medications Dose Ordered Sig/Meli Route Start Time Stop Time Status Last Admin Dose Admin Morphine Sulfate 2 mg ONCE ONCE IV 08/14/24 02:45 08/14/24 02:47 DC 08/14/24 03:11 2 MG Ondansetron HCl 4 mg ONCE ONCE IV 08/14/24 02:45 08/14/24 02:47 DC 08/14/24 03:10 4 MG Sodium Chloride 1,000 ml @ 1,000 mls/hr Q1H ONCE IV 08/14/24 02:45 08/14/24 03:44 DC 08/14/24 03:10 1,000 MLS/HR Assessment/Plan Assessment/Plan # ACUTE DIARRHEA RULE OUT C. DIFF -Patient came with diarrhea, abdominal pain, nausea -Recent history of completed antibiotic recently -CT abd w/o contrast- Cholelithiasis. Hepatomegaly. Diverticulosis coli without CT evidence of acute diverticulitis. -NSS IV 100 cc/hour -Ondansetron4 mg IV p.r.n. -Tylenol 650 MG mg p.o. q.6h p.r.n. -stat metronidazole 500 mg IV stat and q.8h -stool for C diff ordered # URINARY TRACT INFECTION -UA-appearance turbid, blood 3+, nitrate 1+, leukocyte esterase 3+, RBC 194, WBC 1703 -Start ceftriaxone1 g IV stat and daily - Urine culture # CHRONIC KIDNEY DISEASE STAGE IV -serum creatinine 2.72, EGFR 24 -CT abdomen-Marked left hydroureteronephrosis with perinephric stranding and evidence of cortical thinning suggestive of a chronic process. # ANEMIA OF CHRONIC DISEASE -Hemoglobin 11.6, HCT 36.4 -No signs symptoms of active bleeding # ESSENTIAL HYPERTENSION -Amlodipine 10 mg p.o. daily -Monitor blood pressure # CORONARY ARTERY DISEASE WITH 2 STENT -History of 2 stent placement on January 2024 -Ocgzpvw23 mg p.o. daily -Roauvx05 mg p.o. daily # TYPE 2 DIABETES MELLITUS WITH HYPERGLYCEMIA -On admission blood sugar 159 -FjC3w-7.4 On 04/2024 -Home medicine: Lantus 60 units q.h.s., insulin aspart 10 units as needed, Liraglutide . -Start insulin sliding scale because patient having poor oral intake and nausea -Start diabetic medication according to blood sugar # CHRONIC LOW-BACK PAIN -Tylenol 650 mg p.o. q.6 p.r.n. -Gabapentin 300 mg, start after dose confirmed with pharmacy # BILATERAL NEPHROLITHIASIS -CT abdomen-Bilateral nephrolithiasis # MORBID OBESITY, BMI 36.0 -lifestyle modification # BPH -continue tamsulosin 0.4 mg p.o. daily DIET: Clear liquid GI prophylaxis: Ranitidine 20 mg mg p.o. daily DVT prophylaxis: Heparin 5000 units q.12 subcutaneously Goals of care discussion, more than 29 minute spent. Code status full code. Case discussed with Dr. Garrett Plan discussed with: Patient, Other (NURSE) My Orders Orders - TITO PRAKASH RESIDENT Procedure Category Date Status Time Admit ADMIT 08/14/24 Transmitted 05:00 Nitroglycerin PHA 08/14/24 In Process Sublingual (Ntrostat 05:00 Morphine Sulfate PHA 08/14/24 In Process Injection 05:00 Oxygen By Nasal RT 08/14/24 Transmitted Cannula 05:00 NS PHA 08/14/24 Verified 05:15 Metronidazole Ivpb PHA 08/14/24 Verified Flagyl 06:00 Metronidazole Ivpb PHA 08/14/24 Verified Flagyl 05:15 Ondansetron Hcl PHA 08/14/24 Verified (Zofran) 05:15 Ondansetron Hcl PHA 08/14/24 Verified (Zofran) 05:15 Sodium Bicarb Tab PHA 08/14/24 Verified 10:00 Glucose Blood PHA 08/14/24 Verified (Accu-Chek Comfort 07:00 Bedtime Insulin Scale PHA 08/14/24 Verified 22:00 Moderate Insulin Ss PHA 08/14/24 Verified 07:00 Dextrose 50% Syringe PHA 08/14/24 Verified 05:15 * Urology Consult CONS 08/14/24 Verified 05:01 Alanine LAB 08/14/24 Verified Aminotransferase 05:01 Aspartate Amino LAB 08/14/24 Verified Transferase 05:01 Bilirubin, Total LAB 08/14/24 Verified 05:01 Amlodipine Tablet PHA 08/14/24 Verified (Norvasc Tablet) 10:00 Aspirin Tablet PHA 08/14/24 Verified 10:00 Clopidogrel Bisulfate PHA 08/14/24 Verified (Plavix) 10:00 Acetaminophen Tablet PHA 08/14/24 Verified (Tylenol Tablet) 05:15 Tamsulosin PHA 08/14/24 Verified Hydrochloride (Flomax) 18:00 Clear Liq Diet DIET 08/14/24 Verified Breakfast Heparin Sodium PHA 7/10/25 Verified (Porcine) 10:00 Date of Service: Aug 14, 2024 Billing Provider: CRISTY GARRETT MD Common Visit Codes: 11202-ETFOQIV INP/OBS CARE (HIGH) Secondary Visit Codes: 87957-VFUELHIU CARE PLAN 30 MINUTES TITO PRAKASH RESIDENT Aug 14, 2024 05:56
[2024-08-14] MEDS: InsuLIN REG 1unit/0.01ml Soln (100units/ml) SC SCH ×2 (06:49→21:28)
[2024-08-14] MEDS: ACCU-CHEK COMFORT CURVE STRIP VI SCH (06:50)
[2024-08-14 07:25] VITALS: PULSE 79; RESP 16; O2SAT 97
[2024-08-14 07:26] LABS: Alanine Aminotransferase < 9 U/L (7-40); Bilirubin, Total 0.3 mg/dL (0.2-1.0)
[2024-08-14] MEDS: cefTRIAXone 1GM/50ML D5W 50 ML IV ONE (08:20)
[2024-08-14] MEDS: FAMOTIDINE 20 MG TAB PO SCH (10:15)
[2024-08-14] MEDS: SODIUM BICARBONATE 650 MG TAB PO SCH (10:15)
[2024-08-14] MEDS: CLOPIDOGREL BISULFATE 75 MG TAB PO SCH (10:15)
[2024-08-14] MEDS: HEPARIN SODIUM (PORCINE) 5000 UNITS/ML 1ML VIAL SC SCH (10:16)
[2024-08-14 14:28] VITALS: BP 134/58; PULSE 80; RESP 19; TEMP 97.6; O2SAT 97
--- NOTE | 2024-08-14 15:09 | DVHINCON2 ---
Date of service: Aug 14, 2024 Referring Physician Hospitalist Reason for Consultation hydronephrosis History of Present Illness History Source: Patient, RN Notes, MD Notes, Old Records Exam Limitations: No limitations HPI 74 yo male PMH DMII, HTN, PA s/p stent x 2 c/o weakness for the past few weeks. He was seen at [facility] for complicated UTI and was admitted for 5 days. During his admission urology removed the left sided ureteral stent (08/08/24) that was placed at [facility] by Dr. Santos 05/01/24 for left hydro 2/2 ureteral stone. Pt is known to urology for left sided chronic hydro, renal atrophy and bilateral non obstructing renal stones. Denies n/v/d. No fever, no hematuria. pt is voiding small amounts frequently. He is w/c bound, cannot bear weight on the right leg. He lives with his girlfriend and has HHN twice per week through [facility]. Medical care is through [facility]. He states he stopped all his meds one week ago except for insulin, ANTWAN meds and gabapentin. He completed course of abx given on d/c form [facility]. He is normally on plavix but has not taken it for 1 week. Renal scan from 01/2024 left 23.8% right 76.2% Home Meds Active Scripts Amoxicillin & Pot Clavulanate (AUGMENTIN TABLET) 875 Mg Tb, 875 MG PO BID, #20 TAB Prov:DURGA BOSE MD 05/02/24 Hydrocodone-Acetaminophen (Hydrocodone Bitartrate/AC 10-325 mg) 1 Tab Tab, 1 TAB PO BID, #20 TAB Prov:DURGA BOSE MD 05/02/24 Aspirin (Aspir-81) 81 Mg Tab, 1 TAB PO DAILY PRN for 30 Days, #30 TAB 3 Refills Prov:TEMI CRENSHAW MD 01/24/24 Clopidogrel Bisulfate (Plavix) 75 Mg Tab, 75 MG PO DAILY for 30 Days, #30 TAB 3 Refills Prov:TEMI CRENSHAW MD 01/24/24 Reported Medications Clopidogrel Bisulfate (CLOPIDOGREL) 75 Mg Tab, 1 TAB PO DAILY 05/01/24 Tamsulosin Hcl (Tamsulosin Hcl) 0.4 Mg Cap, CAP PO 05/01/24 Atorvastatin Calcium (ATORVASTATIN CALCIUM) 40 Mg Tab, 1 TAB PO 05/01/24 Aspirin (Aspirin Low Dose) 81 Mg Tab, 1 TAB PO DAILY 05/01/24 Insulin Glargine-Yfgn (Insulin Glargine) 100 Unit/Ml Inj, 60 UNIT SC DAILY, INJ 01/22/24 Methocarbamol (Methocarbamol) 500 Mg Tab, 500 MG PO PRN for muscle spasms for 30 Days, MG 01/22/24 Amlodipine Besylate-Atorvastat (Amlodipine Besylate/Atorv 5-20 mg) 1 Tab Tab, 1 TAB PO, TAB 10/14/20 Liraglutide (Victoza) 18 Mg/3 Ml Inj, 1.8 MG SUBCUT DAILY, #9 ML 3 Refills 10/14/20 Insulin Aspart Protamine & Asp (Insulin Aspart Protamine/ (70-30) 100 Unit/ml) 1 Inj Inj, 10 INJ SC, INJ 10/14/20 Past Medical History Cardiac: HTN, PA Endocrine: IDDM Past Surgical History: PTCA Patient Family History: Patient reports no known family medical history. Smoker: No Hx (Negative) Alocohol: None Drugs: None Domestic Violence: Neg Review of Systems Constitutional: Malaise, Weakness Gastrointestinal: Diarrhea Genitourinary: Frequency H&P Exam Vital Signs Vital Signs Date Time Temp Pulse Resp B/P (MAP) Pulse Ox O2 Delivery O2 Flow Rate FiO2 08/14/24 14:20 81 18 156/73 (100) 95 08/14/24 07:25 97.8 97.8 08/14/24 07:25 Nasal Cannula* 2 28 General Appeara: Well developed, Well nourished, Normal Appearance, Obese Pulmonary/Respiratory: Normal inspection, Normal breath sounds, Chest non- tender, Lungs clear Cardiovascular/Chest: Normal inspection, Regular rate, Normal Rhythm Rectal Exam: Deferred Back Exam: Normal inspection Male Genital Exam: Normal genitalia Neuro/Mental St: Alert, Oriented Appearance: Appropriate appearance, Appropriate insight Eye contact/ Speech: Cooperative, Good eye contact, Normal speech Skin Exam: Normal inspection, Pallor Labs/Xrays [address] [address] Ph: [phone] DIAGNOSTIC IMAGING Diagnostic Imaging Report : [id number] Signed PATIENT: ENOCH KELLEY ACCT: [id number] UNIT: [id number] : 1950 LOC: ER ROOM / BED: / AGE / SEX: 74 / M ADM STATUS: REG ER SERVICE 0123 ORDERING PHYSICIAN: ELISHA HARRIS MD PROCEDURE(s): ABPL - CT AB PEL WO CON-NO ORAL OR IV REASON: Left lower quadrant abdominal pain, diarrhea ORDER NUMBER(s): [id number], ACCESSION NUMBER(s): [id number] Exam: CT CT AB PEL WO CON-NO ORAL OR IV History: Left lower quadrant abdominal pain, diarrhea Comparison Study: CT CT AB PEL WO CON-NO ORAL OR IV on DOS: 05/01/24 Technique: Multidetector spiral CT of the abdomen was performed from lung bases to pubic symphysis. Imaging was performed without IV contrast. Axial, coronal and sagittal multiplanar reformats were obtained from the axial data set by the technologist. Radiation Dose : 1. Abdomen/Pelvis: CTDIvol 27.45 mGy, DLP 1660.49 mGy*cm. Findings: Evaluation of solid organs is limited due to lack of intravenous contrast use. Lung Bases: No acute or significant lung base finding. Normal heart size. No pleural or pericardial effusion. Liver: The liver is enlarged, measuring 21.7 cm in craniocaudal dimension.. No focal lesions. Gallbladder and Biliary Tree: Multiple calcified gallstones within the gallbladder. Spleen: Unremarkable Pancreas: The pancreas is grossly normal in appearance. Adrenal Glands: Unremarkable Kidneys: Pronounced left hydronephrosis and ureteral dilatation as well as perinephric stranding and evidence of cortical thinning. No identifiable obstructive etiology. Multiple nonobstructing bilateral pelvocaliceal calculi are noted. Bladder: Grossly unremarkable for degree of distention. Bowel: The stomach is grossly normal in appearance. Small bowel and colon are normal in caliber and distribution. Diverticulosis coli without CT evidence of acute diverticulitis. The appendix is normal. Ascites: Absent Lymphadenopathy: No mesenteric, retroperitoneal or periportal lymphadenopathy. Abdominal Wall and Mesentery: Fat containing umbilical hernia. Vasculature: The visualized abdominal aorta is normal in size and caliber. Atherosclerotic vascular calcifications. Evaluation of abdominal and pelvic vessels is limited due to lack of intravenous contrast. Pelvic Organs: Unremarkable Musculoskeletal: No aggressive focal bony lesions, acute fractures or dislocation. IMPRESSION: 1. Cholelithiasis. 2. Hepatomegaly. 3. Marked left hydroureteronephrosis with perinephric stranding and evidence of cortical thinning suggestive of a chronic process. No identifiable obstructive etiology. 4. Bilateral nephrolithiasis. 5. Diverticulosis coli without CT evidence of acute diverticulitis. Radiation optimization: All CT scans at this facility use at least one of these dose optimization techniques: automated exposure control mA and/or kV adjustment per patient size (includes targeted exams where dose is matched to clinical indication) or iterative reconstruction. ATED BY: AAMIR GUERRERO MD DICTATED DATE/TIME: 08/14/24226 SIGNED BY: AAMIR GUERRERO MD SIGNED DATE/TIME: 08/14/24226 CC: Labs Test 08/14/24 06:33 08/14/24 04:47 08/14/24 01:34 Range/Units POC Glucose 144 H 70-106 mg/dl Urine Color Light-orange Yellow Urine Clarity Ex.turbid Clear Urine pH 6.0 5.0-9.0 Urine Specific [place] 1.026 1.001-1.035 Urine Protein 3+ H Negative Urine Ketones Negative Negative Urine Blood 3+ H Negative /uL Urine Nitrite 1+ H Negative Urine Bilirubin Negative Negative Urine Urobilinogen Normal Negative mg/dL Urine Leukocyte Esterase 3+ Negative /uL Urine RBC 194 0 - 3 /hpf Urine WBC Clumps Present None Seen /hpf Urine Microscopic WBC 1703 H 0-3 /HPF Urine Squamous Epithelial Cells None seen <5 /hpf Urine Bacteria None seen None Seen /hpf Urine Glucose 2+ H Normal mg/dL White Blood Count 10.6 4.4-10.8 10^3/uL Red Blood Count 4.49 L 4.5-5.90 10^6/uL Hemoglobin 11.6 L 13.5-17.5 g/dL Hematocrit 36.4 L 41.0-53.0 % Mean Corpuscular Volume 81.0 80.0-100.0 fL Mean Corpuscular Hemoglobin 25.9 L 28.0-32.0 pg Mean Corpuscular Hemoglobin Concent 32.0 32.0-36.0 g/dL Red Cell Distribution Width 17.5 H 11.8-14.3 % Platelet Count 353 140-450 10^3/uL Mean Platelet Volume 7.0 6.9-10.8 fL Neutrophils (%) (Auto) 60.8 37.0-80.0 % Lymphocytes (%) (Auto) 28.0 10.0-50.0 % Monocytes (%) (Auto) 8.0 0.0-12.0 % Eosinophils (%) (Auto) 2.3 0.0-7.0 % Basophils (%) (Auto) 0.9 0.0-2.0 % Neutrophils # (Auto) 6.4 1.6-8.6 10 ^3/uL Lymphocytes # (Auto) 3.0 0.4-5.4 10 ^3/uL Monocytes # (Auto) 0.8 0-1.3 10 ^3/uL Eosinophils # (Auto) 0.2 0-0.8 10 ^3/uL Basophils # (Auto) 0.1 0-0.2 10 ^3/uL Nucleated Red Blood Cells 0.0 % Sodium Level 137 136-145 mmol/L Potassium Level 4.9 3.5-5.1 mmol/L Chloride Level 110 H 98-107 mmol/L Carbon Dioxide Level 18 L 20-31 mmol/L Anion Gap 9 5-15 Blood Urea Nitrogen 32 H 9-23 mg/dL Creatinine 2.72 H 0.700-1.30 mg/dL Glomerular Filtration Rate Calc 24 >90 mL/min BUN/Creatinine Ratio 11.8 10.0-20.0 Serum Glucose 159 H 74-106 mg/dL Hemoglobin A1c 8.0 H <5.7 % A1C Calcium Level 9.2 8.7-10.4 mg/dL Total Bilirubin 0.3 0.2-1.0 mg/dL Aspartate Amino Transferase (AST) 14 13-40 U/L Alanine Aminotransferase (ALT) < 9 7-40 U/L B-Type Natriuretic Peptide 77.00 0-100 pg/mL Assessment/Plan Problem List: (1) Nephrolithiasis (2) Hydronephrosis Plan NM renal scan gómez to gravity treat UTI Plan discussed with: Patient, Other SHALINI HAMEED NP Aug 14, 2024 15:09
--- NOTE | 2024-08-14 16:13 | DVH ---
Technique: Real-time ultrasound images through the bladder using a transabdominal transducer. Indication: Left hydronephrosis. Please look for Left ureteral jetting Comparison: 08/14/2024 Findings: Bladder is partially distended, limits evaluation. Ureteral jets not visualized. There is an echogenic structure in the right aspect of the bladder. CT from today did not demonstrate evidence for a ureteral stent. Correlate as to whether there has been interval placement of a stent. No calculus seen on the previous CT within the bladder lumen. Cystoscopy/CT cystogram can be obtaine d to further evaluate this echogenic structure if etiology is still unclear Impression: As above
[2024-08-14] MEDS: TAMSULOSIN HYDROCHLORIDE 0.4 MG CAP PO SCH (17:54)
--- NOTE | 2024-08-14 19:32 | DVHPNRES ---
Progress Note Date Seen: Aug 14, 2024 Resident Creating Document: ELVIS ROJAS RESIDENT Medical Necessity Reason Pt with a Central, PICC or Fol: Yes The following are medically ne: Gómez Catheter Subjective Review of Systems 74-year-old male, who is a , with past medical history of hypertension, hyperlipidemia, CAD with stent placement January 2024, bilateral nephrolithiasis, type 2 diabetes mellitus, low back pain, BPH, morbid obesity. He came to the ER with complaints of diarrhea since 4 days which has worsened the last 2 days. Patient complains of diarrhea every time he eats anything. He has left lower quadrant abdominal pain since 2 days, which is stabbing in nature, nonradiating, intermittent and 6/10 in intensity. Patient denies any recent travel, no sick contacts, eating outside. Patient was discharged from [facility] 4 days ago where he was admitted for UTI, was on 2 antibiotics in the hospital and was discharged on antibiotics with removal of left ureteric stent. Patient uses electric or scooter for a moment. Patient complains of nausea and diarrhea last bowel movement was on Sunday. He denies any headache, vomitings, chest pain, shortness of breath, cough, dysuria, fever, hematuria, hematochezia, dizziness. Urinalysis shows positive signs of UTI. CT Abdomen shows cholelithiasis, hepatomegaly, bilateral nephrolithiasis, diverticulosis. Patient is on clear liquid diet, and Urology was consulted and recommended NM renal scan, gómez to gravity, and to treat UTI. Past surgical history: underwent 2 stent placement, and underwent hemorrhoid surgery 20 years ago. Personal History : patient is ex-smoker who quit 15 years ago, but smoked 1 pack per day for 40 years, patient drinks socially, denies any drug abuse Constitutional: Denies weight loss, fever and chills. Obese HEENT: Denies changes in vision and hearing. Respiratory: Denies shortness of breath and cough Cardiovascular: Denies chest discomfort or palpitations GI: Obese Abdomen : Denies dysuria and urinary frequency. Musculoskeletal: Denies myalgias and joint pain Skin: Denies rash and pruritus. Neurological: Denies dizziness, headache, vision or hearing problems Objective vital signs Vital Sign Date Time Temp Pulse Resp B/P (MAP) Pulse Ox O2 Delivery O2 Flow Rate FiO2 08/14/24 17:14 82 18 143/79 08/14/24 14:28 97.6 97 97.6 08/14/24 14:28 Room Air* 0 21 medications Current Medications Medications Dose Ordered Sig/Meli Route Start Time Stop Time Status Last Admin Dose Admin Nitroglycerin 0.4 mg Q5MINP PRN SL 08/14/24 05:00 Morphine Sulfate 2 mg Q30M PRN IV 08/14/24 05:00 Sodium Chloride 1,000 ml @ 100 mls/hr Q10H IV 08/14/24 05:15 08/14/24 15:42 100 MLS/HR Metronidazole 100 ml @ 100 mls/hr Q8HR IV 08/14/24 14:00 08/14/24 15:41 100 MLS/HR Ondansetron HCl 4 mg Q4HPRN PRN IV 08/14/24 05:15 Sodium Bicarbonate 650 mg BID PO 08/14/24 10:00 08/14/24 10:15 650 MG Diagnostic Test (Pha) 1 strip ACHS 08/14/24 07:00 08/14/24 17:11 1 STRIP Insulin Human Regular HS SC 08/14/24 22:00 Insulin Human Regular AC SC 08/14/24 07:00 08/14/24 06:49 2 UNITS Dextrose 50 ml UD PRN IV 08/14/24 05:15 Amlodipine Besylate 10 mg DAILY PO 08/14/24 10:00 08/14/24 10:17 10 MG Aspirin 81 mg DAILY PO 08/14/24 10:00 08/14/24 10:15 81 MG Clopidogrel Bisulfate 75 mg DAILY PO 08/14/24 10:00 08/14/24 10:15 75 MG Acetaminophen 650 mg Q6HP PRN PO 08/14/24 05:15 08/14/24 05:54 650 MG Tamsulosin HCl 0.4 mg QPM PO 08/14/24 18:00 08/14/24 17:54 0.4 MG Heparin Sodium (Porcine) 5,000 units Q12HR SC 08/14/24 10:00 08/14/24 10:16 5,000 UNITS Famotidine 20 mg Q12HR PO 08/14/24 10:00 08/14/24 10:15 20 MG Ceftriaxone Sodium 50 ml @ 100 mls/hr DAILY@09 IV 08/15/24 09:00 Acetaminophen/ Hydrocodone Bitart 1 tab Q6HP PRN PO 08/14/24 15:45 Examination General: Patient alert and oriented in person, place and time. Patient following commands. HEENT: Normocephalic, atraumatic, moist mucous membranes Respiratory/pulmonary: Clear lungs bilaterally, vesicular murmurs present in almost all lung groves, no associated crackles or wheezes. Cardiovascular: Normal heart sounds S1 and S2 with no associated murmurs Abdomen: Abdomen nondistended, there is pain on palpation of left lower quadrant, no palpable masses. Extremities: There is no peripheral edema present at the lower extremities. Bilateral edema Peripheral Pulses: 3+ Radial (R). 3+ Radial (L). 3+ Dorsalis pedis (R). 3+ Dorsalis pedis(L) Skin: No rashes or pruritus, there is no sacral edema present at this time. Neurological: Intact cranial nerves with no focal neurologic deficits laboratory and microbiology Laboratory Tests 08/14/24 01:34 Test 08/14/24 01:34 Range/Units Serum Glucose 159 H 74-106 mg/dL Labs and/or images reviewed: Labs reviewed by me, Image(s) reviewed by me Problem List/Assessment/Plan Problem List/Assessment/Plan # Acute Gastroenteritis rule out C diff. # bilateral nephrolithiasis with left hydroureteronephrosis # acute complicated UTI # cholelithiasis without cholecystitis # stage IV CKD # type 2 diabetes mellitus: Hemoglobin A1c 8 # Diverticulosis - Ct Abdomen shows Cholelithiasis, Hepatomegaly, Marked left hydroureteronephrosis with perinephric stranding and evidence of cortical thinning suggestive of a chronic process. No identifiable obstructive etiology, Bilateral nephrolithiasis, Diverticulosis coli without CT evidence of acute diverticulitis. - Patient on clear liquid diet, - urology was consulted and recommended NM renal scan, Gómez's to gravity, Tamsulosin, strain all urine from gómez bag - IV ceftriaxone and Flagyl - stool cultures, urine cultures - Gluco-checks and ISS # CAD s/p 2 stents -resume home homes # HTN urgency- resolving -monitor BP - continue home meds Goals of care discussed with the patient for 20 minutes: full code Case Discussed with Dr. Dalal Plan discussed with: Patient, Other (RN) Addendum Addendum Addendum I was physically present for the coombs portions of the service provided to patient by THE RESIDENT. I have reviewed the documentation, discussed the case with resident and agree with the resident's documentation except as noted. Also the patient's clinical case was discussed with the patient's nurse. This medical document was created using an electronic medical record system with computerized dictation system. Although this document has been carefully reviewed, there might still be some phonetic and typographical errors. These areas are purely typographical due to imperfections of the software programs, and do not reflect any compromise in the patient's medical care. Late signature. Date of Service: Aug 14, 2024 Billing Provider: RENAE DALAL MD Common Visit Codes: [id number] INP/OBS CARE(HIGH) Secondary Visit Codes: [id number] CARE PLAN 30 MINUTES (20 minutes) ELVIS ROJAS RESIDENT Aug 14, 2024 19:32 RENAE DALAL MD Aug 15, 2024 04:41
[2024-08-14 20:00] VITALS: PULSE 64; RESP 16; RESP 18; O2SAT 95; O2SAT 97
[2024-08-14 21:04] VITALS: BP 137/56; PULSE 80; RESP 19; TEMP 98.3; O2SAT 95
[2024-08-14] MEDS: HYDROcodone-ACET 10/325MG TAB PO PRN (21:26)
[2024-08-15] VITALS (8 sets, daily range): BP systolic 117–150; BP diastolic 58–80; PULSE 80–85; RESP 16–20; TEMP 98–98.6; O2SAT 84–97
[2024-08-15] MEDS: ONDANSETRON HCL 4 MG/2 ML VIAL IV PRN (01:43)
[2024-08-15 06:20] LABS: Potassium 4.9 mmol/L (3.5-5.1); Sodium 137 mmol/L (136-145)
[2024-08-15 06:21] LABS: Anion Gap 10 (5-15)
[2024-08-15 06:26] LABS: BUN/Creatinine Ratio 12.4 (10.0-20.0)
[2024-08-15 06:27] LABS: Hematocrit 32.0 % (41.0-53.0); Hemoglobin 10.4 g/dL (13.5-17.5); Mean Corpuscular Hemoglobin 26.1 pg (28.0-32.0); Mean Corpuscular Volume 80.7 fL (80.0-100.0); Nucleated Red Blood Cells % 0.1 %
[2024-08-15 06:39] LABS: Blood Urea Nitrogen 31 mg/dL (9-23); Calcium 8.5 mg/dL (8.7-10.4); Carbon Dioxide 17 mmol/L (20-31); Chloride 110 mmol/L (98-107); Glucose 127 mg/dL (74-106)
[2024-08-15 08:07] LABS: Prostate Specific Antigen 0.5 ng/mL (0.0-4.0)
[2024-08-15] MEDS: cefTRIAXone 1GM/50ML D5W 50 ML IV SCH (09:13)
--- NOTE | 2024-08-15 10:56 | DVHPNRES ---
Progress Note Date Seen: Aug 15, 2024 Resident Creating Document: ELVIS ROJAS RESIDENT Medical Necessity Reason Pt with a Central, PICC or Fol: Yes The following are medically ne: Gómez Catheter Subjective Review of Systems 74-year-old male who is a , with past medical history of hypertension hyperlipidemia CAD with stent placement last year in January, bilateral kidney stones, type 2 diabetes mellitus, low back pain, BPH, morbid obesity. he came to the ER with complaints of diarrhea since 4 days which has worsened the last 2 days. Patient complains of diarrhea every time he eats anything. Patient has left lower quadrant abdominal pain since 2 days, which is stabbing in nature, nonradiating, intermittent and 6/10 in intensity. patient denies any recent travel, no sick contacts, eating outside. Patient complains of nausea but no vomiting. patient was discharged from [facility] 4 days ago where he was admitted for UTI, was on 2 antibiotics and was discharged on antibiotics with removal of left ureteric stent. Patient uses electric or scooter for a moment. patient complains of nausea and diarrhea last bowel movement was on Sunday. He denies any headache had chest pain shortness of breath cough dysuria fever hematuria hematochezia dizziness. Patient seen at bedside. Patient appears comfortable, alert x3, he complained of nausea in the morning after eating a sandwich, mild left lower quadrant pain and right knee pain. He does not complain of abdominal pain, vomiting, headaches, dizziness. His last bowel movement was on Sunday. Awaiting stool culture. Objective vital signs Vital Sign Date Time Temp Pulse Resp B/P (MAP) Pulse Ox O2 Delivery O2 Flow Rate FiO2 08/15/24 09:13 150/72 08/15/24 09:00 98.2 85 16 93 98.2 08/15/24 08:30 Room Air* 0 21 Total Intake and Output 08/14/24 08/14/24 08/15/24 15:00 23:00 07:00 Intake Total 875 ml 200 ml Output Total 800 ml Balance 875 ml -600 ml medications Current Medications Medications Dose Ordered Sig/Meli Route Start Time Stop Time Status Last Admin Dose Admin Nitroglycerin 0.4 mg Q5MINP PRN SL 08/14/24 05:00 Morphine Sulfate 2 mg Q30M PRN IV 08/14/24 05:00 Sodium Chloride 1,000 ml @ 100 mls/hr Q10H IV 08/14/24 05:15 08/14/24 21:28 100 MLS/HR Metronidazole 100 ml @ 100 mls/hr Q8HR IV 08/14/24 14:00 08/15/24 05:22 100 MLS/HR Ondansetron HCl 4 mg Q4HPRN PRN IV 08/14/24 05:15 08/15/24 01:43 4 MG Sodium Bicarbonate 650 mg BID PO 08/14/24 10:00 08/15/24 09:13 650 MG Diagnostic Test (Pha) 1 strip ACHS 08/14/24 07:00 08/15/24 05:22 1 STRIP Insulin Human Regular HS SC 08/14/24 22:00 08/14/24 21:28 2 UNITS Insulin Human Regular AC SC 08/14/24 07:00 08/15/24 06:29 2 UNITS Dextrose 50 ml UD PRN IV 08/14/24 05:15 Amlodipine Besylate 10 mg DAILY PO 08/14/24 10:00 08/15/24 09:13 10 MG Aspirin 81 mg DAILY PO 08/14/24 10:00 08/15/24 09:13 81 MG Clopidogrel Bisulfate 75 mg DAILY PO 08/14/24 10:00 08/15/24 09:12 75 MG Acetaminophen 650 mg Q6HP PRN PO 08/14/24 05:15 08/14/24 05:54 650 MG Tamsulosin HCl 0.4 mg QPM PO 08/14/24 18:00 08/14/24 17:54 0.4 MG Heparin Sodium (Porcine) 5,000 units Q12HR SC 08/14/24 10:00 08/15/24 09:14 5,000 UNITS Famotidine 20 mg Q12HR PO 08/14/24 10:00 08/15/24 09:13 20 MG Ceftriaxone Sodium 50 ml @ 100 mls/hr DAILY@09 IV 08/15/24 09:00 08/15/24 09:13 100 MLS/HR Acetaminophen/ Hydrocodone Bitart 1 tab Q6HP PRN PO 08/14/24 15:45 08/15/24 05:22 1 TAB Examination General: Patient alert and oriented in person, place and time. Patient following commands. HEENT: Normocephalic, atraumatic, moist mucous membranes Respiratory/pulmonary: Clear lungs bilaterally, vesicular murmurs present in almost all lung groves, no associated crackles or wheezes. Cardiovascular: Normal heart sounds S1 and S2 with no associated murmurs Abdomen: Abdomen nondistended, Mild Left lower quadrant pain, no palpable masses. Obese Abdomen. Gómez in place. Extremities: There is no peripheral edema present at the lower extremities. Peripheral Pulses: 3+ Radial (R). 3+ Radial (L). 3+ Dorsalis pedis (R). 3+ Dorsalis pedis(L) Skin: No rashes or pruritus, there is no sacral edema present at this time. Neurological: Intact cranial nerves with no focal neurologic deficits laboratory and microbiology Laboratory Tests 08/15/24 04:42 Test 08/15/24 04:42 Range/Units Serum Glucose 127 H 74-106 mg/dL Microbiology Date/Time Source Procedure Growth Status 08/14/24 04:47 Voided Urine Urine Culture - Preliminary Resulted Labs and/or images reviewed: Labs reviewed by me, Image(s) reviewed by me Problem List/Assessment/Plan Problem List/Assessment/Plan # Acute Gastroenteritis rule out C diff. # Bilateral nephrolithiasis with left hydroureteronephrosis # acute complicated UTI # cholelithiasis without cholecystitis # stage IV CKD # type 2 diabetes mellitus: Hemoglobin A1c 8 # Diverticulosis - Ct Abdomen shows Cholelithiasis, Hepatomegaly, Marked left hydroureteronephrosis with perinephric stranding and evidence of cortical thinning suggestive of a chronic process. No identifiable obstructive etiology, Bilateral nephrolithiasis, Diverticulosis coli without CT evidence of acute diverticulitis. - Patient on clear liquid diet, - urology was consulted and recommended NM renal scan, Gómez to gravity, Tamsulosin, strain all urine from gómez bag - IV ceftriaxone for UTI - stool cultures, urine cultures - Gluco-checks and ISS - Awaiting stool culture - Bladder US done and showed Bladder is partially distended, limits evaluation. Ureteral jets not visualized. # CAD s/p 2 stents -resume home homes # HTN urgency- resolved -monitor BP -continue home meds Case Discussed with Dr. Dalal Plan discussed with: Patient, Other (RN) Addendum Addendum Addendum I was physically present for the coombs portions of the service provided to patient by THE RESIDENT. I have reviewed the documentation, discussed the case with resident and agree with the resident's documentation except as noted. Also the patient's clinical case was discussed with the patient's nurse. This medical document was created using an electronic medical record system with computerized dictation system. Although this document has been carefully reviewed, there might still be some phonetic and typographical errors. These areas are purely typographical due to imperfections of the software programs, and do not reflect any compromise in the patient's medical care. Late signature. Date of Service: Aug 15, 2024 Billing Provider: RENAE DALAL MD Common Visit Codes: [id number] INP/OBS CARE(MOD) ELVIS ROJAS RESIDENT Aug 15, 2024 10:56 RENAE DALAL MD Aug 16, 2024 13:57
--- NOTE | 2024-08-15 16:37 | DVHPN2 ---
Progress Note - Dictate Date Seen: Aug 15, 2024 Has the PT tested + for MRSA If YES, has PT been informed?: No Medical Necessity Reason Pt with a Central, PICC or Fol: Yes The following are medically ne: [place] Catheter vital signs Vital Sign Date Time Temp Pulse Resp B/P (MAP) Pulse Ox O2 Delivery O2 Flow Rate FiO2 08/15/24 13:00 98.2 83 18 130/58 (82) 93 98.2 08/15/24 08:30 Room Air* 0 21 Total Intake and Output 08/14/24 08/14/24 08/15/24 15:00 23:00 07:00 Intake Total 875 ml 200 ml Output Total 800 ml Balance 875 ml -600 ml medications Current Medications Medications Dose Ordered Sig/Meli Route Start Time Stop Time Status Last Admin Dose Admin Nitroglycerin 0.4 mg Q5MINP PRN SL 08/14/24 05:00 Morphine Sulfate 2 mg Q30M PRN IV 08/14/24 05:00 Sodium Chloride 1,000 ml @ 100 mls/hr Q10H IV 08/14/24 05:15 08/14/24 21:28 100 MLS/HR Ondansetron HCl 4 mg Q4HPRN PRN IV 08/14/24 05:15 08/15/24 01:43 4 MG Sodium Bicarbonate 650 mg BID PO 08/14/24 10:00 08/15/24 09:13 650 MG Diagnostic Test (Pha) 1 strip ACHS 08/14/24 07:00 08/15/24 11:31 1 STRIP Insulin Human Regular HS SC 08/14/24 22:00 08/14/24 21:28 2 UNITS Insulin Human Regular AC SC 08/14/24 07:00 08/15/24 11:31 2 UNITS Dextrose 50 ml UD PRN IV 08/14/24 05:15 Amlodipine Besylate 10 mg DAILY PO 08/14/24 10:00 08/15/24 09:13 10 MG Aspirin 81 mg DAILY PO 08/14/24 10:00 08/15/24 09:13 81 MG Clopidogrel Bisulfate 75 mg DAILY PO 08/14/24 10:00 08/15/24 09:12 75 MG Acetaminophen 650 mg Q6HP PRN PO 08/14/24 05:15 08/14/24 05:54 650 MG Tamsulosin HCl 0.4 mg QPM PO 08/14/24 18:00 08/14/24 17:54 0.4 MG Heparin Sodium (Porcine) 5,000 units Q12HR SC 08/14/24 10:00 08/15/24 09:14 5,000 UNITS Famotidine 20 mg Q12HR PO 08/14/24 10:00 08/15/24 09:13 20 MG Ceftriaxone Sodium 50 ml @ 100 mls/hr DAILY@09 IV 08/15/24 09:00 08/15/24 09:13 100 MLS/HR Acetaminophen/ Hydrocodone Bitart 1 tab Q6HP PRN PO 08/14/24 15:45 08/15/24 12:39 1 TAB objective Bladder US shows no ureteral jetting laboratory and microbiology Laboratory Tests 08/15/24 04:42 Test 08/15/24 04:42 Range/Units Serum Glucose 127 H 74-106 mg/dL Problem List Left hydronephrosis Assessment/Plan Given renal azotemia and no ureteral jet seen, will need to proceed with left PNT vs. cystoscopy with stent placement. IRis less invasive procedure but is not available over weekend. Cystoscopy with left urteral stent placement Plan discussed with: Other LEO GREGORY MD Aug 15, 2024 16:37
[2024-08-16] VITALS (8 sets, daily range): BP systolic 140–167; BP diastolic 72–85; PULSE 82–96; RESP 16–20; TEMP 97.1–98.6; O2SAT 93–97
[2024-08-16 06:12] LABS: Anion Gap 9 (5-15); Carbon Dioxide 19 mmol/L (20-31); Chloride 110 mmol/L (98-107); Potassium 4.6 mmol/L (3.5-5.1); Sodium 138 mmol/L (136-145)
[2024-08-16 06:13] LABS: Calcium 8.7 mg/dL (8.7-10.4)
[2024-08-16 06:17] LABS: Hematocrit 31.4 % (41.0-53.0); Hemoglobin 10.3 g/dL (13.5-17.5); Mean Corpuscular Hemoglobin 26.5 pg (28.0-32.0); Mean Corpuscular Volume 80.4 fL (80.0-100.0); Nucleated Red Blood Cells % 0.1 %
[2024-08-16 06:18] LABS: BUN/Creatinine Ratio 12.2 (10.0-20.0)
[2024-08-16 06:19] LABS: Blood Urea Nitrogen 32 mg/dL (9-23); Glucose 151 mg/dL (74-106)
[2024-08-16] MEDS: MUPIROCIN 2% OINT 15gm or 22gm FOR MRSA NARES EACHNOSTRI SCH (10:00)
--- NOTE | 2024-08-16 11:52 | DVHPNRES ---
Progress Note Date Seen: Aug 16, 2024 Resident Creating Document: ELVIS ROJAS RESIDENT Has the PT tested + for MRSA If YES, has PT been informed?: No Medical Necessity Reason Pt with a Central, PICC or Fol: Yes The following are medically ne: Gómez Catheter Subjective Review of Systems 74-year-old male who is a , with past medical history of hypertension hyperlipidemia CAD with stent placement last year in January, bilateral kidney stones, type 2 diabetes mellitus, low back pain, BPH, morbid obesity. he came to the ER with complaints of diarrhea since 4 days which has worsened the last 2 days. Patient complains of diarrhea every time he eats anything. Patient has left lower quadrant abdominal pain since 2 days, which is stabbing in nature, nonradiating, intermittent and 6/10 in intensity. patient denies any recent travel, no sick contacts, eating outside. Patient complains of nausea but no vomiting. patient was discharged from [facility] 4 days ago where he was admitted for UTI, was on 2 antibiotics and was discharged on antibiotics with removal of left ureteric stent. Patient uses electric or scooter for a moment. patient complains of nausea and diarrhea last bowel movement was on Sunday. He denies any headache had chest pain shortness of breath cough dysuria fever hematuria hematochezia dizziness. Patient seen at bedside. Patient appears comfortable, alert x3, he complained of mild left lower quadrant pain on palpation, and right knee pain. He does not complain of abdominal pain, nause, vomiting, headaches, dizziness. His last bowel movement was on Sunday. urology on board and recomennded Cystoscopy with left urteral stent placement. Awaiting stool culture. Objective vital signs Vital Sign Date Time Temp Pulse Resp B/P (MAP) Pulse Ox O2 Delivery O2 Flow Rate FiO2 08/16/24 11:29 163/85 08/16/24 08:37 97.1 87 16 94 97.1 08/16/24 08:00 Room Air* 0 21 Total Intake and Output 08/15/24 08/15/24 08/16/24 15:00 23:00 07:00 Intake Total 50 ml 940 ml 416 ml Output Total 400 ml 500 ml Balance 50 ml 540 ml -84 ml medications Current Medications Medications Dose Ordered Sig/Meli Route Start Time Stop Time Status Last Admin Dose Admin Nitroglycerin 0.4 mg Q5MINP PRN SL 08/14/24 05:00 Morphine Sulfate 2 mg Q30M PRN IV 08/14/24 05:00 Ondansetron HCl 4 mg Q4HPRN PRN IV 08/14/24 05:15 08/15/24 01:43 4 MG Sodium Bicarbonate 650 mg BID PO 08/14/24 10:00 08/16/24 11:28 650 MG Diagnostic Test (Pha) 1 strip ACHS 08/14/24 07:00 08/16/24 06:40 1 STRIP Insulin Human Regular HS SC 08/14/24 22:00 08/15/24 21:14 3 UNITS Insulin Human Regular AC SC 08/14/24 07:00 08/16/24 06:40 2 UNITS Dextrose 50 ml UD PRN IV 08/14/24 05:15 Amlodipine Besylate 10 mg DAILY PO 08/14/24 10:00 08/16/24 11:29 10 MG Aspirin 81 mg DAILY PO 08/14/24 10:00 08/15/24 09:13 81 MG Clopidogrel Bisulfate 75 mg DAILY PO 08/14/24 10:00 08/16/24 11:29 75 MG Acetaminophen 650 mg Q6HP PRN PO 08/14/24 05:15 08/14/24 05:54 650 MG Tamsulosin HCl 0.4 mg QPM PO 08/14/24 18:00 08/15/24 17:56 0.4 MG Heparin Sodium (Porcine) 5,000 units Q12HR SC 08/14/24 10:00 08/16/24 10:00 5,000 UNITS Famotidine 20 mg Q12HR PO 08/14/24 10:00 08/15/24 20:53 20 MG Ceftriaxone Sodium 50 ml @ 100 mls/hr DAILY@09 IV 08/15/24 09:00 08/16/24 11:28 100 MLS/HR Acetaminophen/ Hydrocodone Bitart 1 tab Q6HP PRN PO 08/14/24 15:45 08/15/24 12:39 1 TAB Mupirocin 1 applic BID EACHNOSTRI 08/16/24 10:00 08/21/24 09:59 Examination General: Patient alert and oriented in person, place and time. Patient following commands. HEENT: Normocephalic, atraumatic, moist mucous membranes Respiratory/pulmonary: Clear lungs bilaterally, vesicular murmurs present in almost all lung groves, no associated crackles or wheezes. Cardiovascular: Normal heart sounds S1 and S2 with no associated murmurs Abdomen: Abdomen nondistended, Mild Left lower quadrent pain, no palpable masses. Obese Abdomen. Gómez in place. Extremities: There is no peripheral edema present at the lower extremities. Peripheral Pulses: 3+ Radial (R). 3+ Radial (L). 3+ Dorsalis pedis (R). 3+ Dorsalis pedis(L) Skin: No rashes or pruritus, there is no sacral edema present at this time. Neurological: Intact cranial nerves with no focal neurologic deficits laboratory and microbiology Laboratory Tests 08/16/24 04:45 Test 08/16/24 04:45 Range/Units Serum Glucose 151 H 74-106 mg/dL Microbiology Date/Time Source Procedure Growth Status 08/14/24 15:20 Nose MRSA Screen - Final Methicillin Resistant S.aureus Complete 08/14/24 04:47 Voided Urine Urine Culture - Preliminary Resulted Problem List/Assessment/Plan Problem List/Assessment/Plan # Acute Gastroenteritis rule out C diff. # Bilateral nephrolithiasis with left hydrouretronephrosis # acute complicated UTI # cholelithiasis without cholecystitis # stage IV CKD # type 2 diabetes mellitus: Hemoglobin A1c 8 # Diverticulosis - Ct Abdomen shows Cholelithiasis, Hepatomegaly, Marked left hydroureteronephrosis with perinephric stranding and evidence of cortical thinning suggestive of a chronic process. No identifiable obstructive etiology, Bilateral nephrolithiasis, Diverticulosis coli without CT evidence of acute diverticulitis. - Patient on clear liquid diet, - urology was consulted and recommended NM renal scan, Gómez to gravity, Tamsulosin, strain all urine from gómez bag - IV ceftriaxone for UTI - stool cultures, urine cultures - Gluco-checks and ISS - Awaiting stool culture - Bladder US done and showed Bladder is partially distended, limits evaluation. Ureteral jets not visualized. - Urology recommended Cystoscopy with left urteral stent placement # CAD s/p 2 stents -resume home homes # HTN urgency- resolved -monitor BP -continue home meds Goals of care discussed with the patient for 23 minutes: full code Case Discussed with Dr. Bose Plan discussed with: Patient My Orders My Orders Orders - ELVIS ROJAS RESIDENT Procedure Category Date Status Time Mupirocin 2% Oint PHA 08/16/24 In Process Mrsa Nares (Bactroban 10:00 Date of Service: Aug 16, 2024 Billing Provider: DURGA BOSE MD Common Visit Codes: [id number] INP/OBS CARE(HIGH) ELVIS ROJAS RESIDENT Aug 16, 2024 11:52 DURGA BOSE MD Aug 16, 2024 23:14
[2024-08-16] MEDS: hydrALAZINE HCL 20 MG/ML VL IV ONE (17:10)
[2024-08-17 05:00] VITALS: BP 157/89; PULSE 94; RESP 18; TEMP 97.4; O2SAT 97
[2024-08-17 06:49] LABS: Hematocrit 32.4 % (41.0-53.0); Hemoglobin 10.7 g/dL (13.5-17.5); Mean Corpuscular Hemoglobin 26.3 pg (28.0-32.0); Mean Corpuscular Volume 79.6 fL (80.0-100.0); Nucleated Red Blood Cells % 0.0 %
[2024-08-17 07:02] LABS: Anion Gap 13 (5-15); Calcium 9.4 mg/dL (8.7-10.4); Potassium 4.4 mmol/L (3.5-5.1); Sodium 140 mmol/L (136-145)
[2024-08-17 07:14] LABS: Blood Urea Nitrogen 27 mg/dL (9-23); Carbon Dioxide 17 mmol/L (20-31); Chloride 110 mmol/L (98-107); Glucose 120 mg/dL (74-106)
[2024-08-17 07:25] LABS: BUN/Creatinine Ratio 11.7 (10.0-20.0)
[2024-08-17 09:00] VITALS: BP 139/71; PULSE 90; RESP 19; TEMP 97.6; O2SAT 95
[2024-08-17 12:42] VITALS: BP 149/65; PULSE 85; RESP 18; TEMP 97.6; O2SAT 94
--- NOTE | 2024-08-17 15:10 | DVHPNRES ---
Progress Note Date Seen: Aug 17, 2024 Resident Creating Document: ANTOINETTE STILL RESIDENT Has the PT tested + for MRSA If YES, has PT been informed?: No Medical Necessity Reason Pt with a Central, PICC or Fol: Yes The following are medically ne: Gómez Catheter Subjective Review of Systems Patient is a 74-year-old male with past medical history of hypertension, hyperlipidemia, CAD with stent placement January 2024, bilateral nephrolithiasis, type 2 diabetes mellitus, low back pain, BPH, morbid obesity who presented to the ED with complaints of diarrhea, which initiated 4 days prior and progressively worsened, which prompted him to seek medical care. Patient states he has diarrhea every time he eats. Additionally, refers lower quadrant abdominal pain since 2 days prior, described as intermittent stabbing, nonradiating, with intensity of 6/10, without aggravating nor relieving factors. Patient denies any recent travel, no sick contacts, eating outside. He states he was discharged from [place] 4 days ago where he was admitted for UTI, was placed on 2 antibiotics and was discharged on antibiotics with removal of left ureteric stent, records were requested from [place] however none could be obtained. Initial labs show WBC 10.6, sodium 137, potassium 4.9, Creatinine 2.72, BUN 32, and UA suggestive of UTI. Abdominal CT shows cholelithiasis, hepatomegaly, bilateral nephrolithiasis, and diverticulosis. Patient was admitted for further work up and started on IV ceftriaxone. Patient seen at bedside. Patient states he no longer has abdominal pain or nausea. States he has not had a bowel movement since Sunday. He currently denies fever, vomiting, chest pain, shortness of breath, cough, dysuria or any other symptoms. Follow up labs: WBC 7.3, hemoglobin 10.7, hematocrit 32.4, platelets 340, sodium 140, potassium 4.4, BUN 27, creatinine 2.31, glucose 120, urine culture positive for pseudomonas aeruginosa. Ceftriaxone was discontinued and cefepime was intiated. Given that patient is tolerating liquid diet without issue, he is being advanced to soft mechanical diet. Per nurse, patient refuses to continue using Gómez catheter. The benefits of use and risk of discontinuance were explained and he states he understands and wishes to continue without it. NM renal scan is still pending. Per urology, it is possible that left audrey function is minimal and may not require intervention and they will hold off on cystoscopy with stent placement for now. Patient is still pending collection of stool sample. Review of systems: Constitutional: Denies weight loss, fever and chills. HEENT: Denies changes in vision and hearing. Respiratory: Denies shortness of breath and cough Cardiovascular: Denies chest discomfort or palpitations GI: Denies abdominal distention, abdominal pain, diarrhea : Denies dysuria and urinary frequency. Musculoskeletal: Denies myalgias and joint pain Skin: Denies rash and pruritus. Neurological: denies dizziness headache vision or hearing problems Objective vital signs Vital Sign Date Time Temp Pulse Resp B/P (MAP) Pulse Ox O2 Delivery O2 Flow Rate FiO2 08/17/24 12:42 97.6 85 18 149/65 (93) 94 97.6 08/17/24 08:05 Room Air* 0 21 Total Intake and Output 08/16/24 08/16/24 08/17/24 15:00 23:00 07:00 Intake Total 700 ml 200 ml Output Total 1875 ml 500 ml Balance -1175 ml -300 ml medications Current Medications Medications Dose Ordered Sig/Meli Route Start Time Stop Time Status Last Admin Dose Admin Nitroglycerin 0.4 mg Q5MINP PRN SL 08/14/24 05:00 Morphine Sulfate 2 mg Q30M PRN IV 08/14/24 05:00 Ondansetron HCl 4 mg Q4HPRN PRN IV 08/14/24 05:15 08/15/24 01:43 4 MG Sodium Bicarbonate 650 mg BID PO 08/14/24 10:00 08/17/24 09:25 650 MG Diagnostic Test (Pha) 1 strip ACHS 08/14/24 07:00 08/17/24 11:56 1 STRIP Insulin Human Regular HS SC 08/14/24 22:00 08/16/24 22:21 2 UNITS Insulin Human Regular AC SC 08/14/24 07:00 08/17/24 11:58 3 UNITS Dextrose 50 ml UD PRN IV 08/14/24 05:15 Amlodipine Besylate 10 mg DAILY PO 08/14/24 10:00 08/17/24 09:36 10 MG Aspirin 81 mg DAILY PO 08/14/24 10:00 08/17/24 09:25 81 MG Clopidogrel Bisulfate 75 mg DAILY PO 08/14/24 10:00 08/17/24 09:26 75 MG Acetaminophen 650 mg Q6HP PRN PO 08/14/24 05:15 08/14/24 05:54 650 MG Tamsulosin HCl 0.4 mg QPM PO 08/14/24 18:00 08/16/24 17:09 0.4 MG Heparin Sodium (Porcine) 5,000 units Q12HR SC 08/14/24 10:00 08/17/24 09:28 5,000 UNITS Famotidine 20 mg Q12HR PO 08/14/24 10:00 08/17/24 09:25 20 MG Acetaminophen/ Hydrocodone Bitart 1 tab Q6HP PRN PO 08/14/24 15:45 08/17/24 12:50 1 TAB Mupirocin 1 applic BID EACHNOSTRI 08/16/24 10:00 08/21/24 09:59 08/17/24 09:45 1 APPLIC Cefepime HCl 50 ml @ 12.5 mls/hr DAILY IV 08/18/24 10:00 Examination General: Patient alert and oriented in person, place and time. Patient following commands. HEENT: Normocephalic, atraumatic, moist mucous membranes Respiratory/pulmonary: Clear lungs bilaterally, vesicular murmurs present in almost all lung groves, no associated crackles or wheezes. Cardiovascular: Normal heart sounds S1 and S2 with no associated murmurs Abdomen: Normoactive bowel sounds, abdomen nondistended, no pain to palpation, no palpable masses. Obese Abdomen. Extremities: There is no peripheral edema present at the lower extremities. Peripheral Pulses: 3+ Radial (R). 3+ Radial (L). 3+ Dorsalis pedis (R). 3+ Dorsalis pedis(L) Skin: No rashes or pruritus Neurological: Intact cranial nerves with no focal neurologic deficits laboratory and microbiology Laboratory Tests 08/17/24 04:50 Test 08/17/24 04:50 Range/Units Serum Glucose 120 H 74-106 mg/dL Microbiology Date/Time Source Procedure Growth Status 08/14/24 15:20 Nose MRSA Screen - Final Methicillin Resistant S.aureus Complete 08/14/24 04:47 Voided Urine Urine Culture - Final Pseudomonas aeruginosa Complete Problem List/Assessment/Plan Problem List/Assessment/Plan Assessment and Plan: Acute infectious Gastroenteritis rule out C diff. -Pending stool culture -Patient advanced to mechanical soft Bilateral nephrolithiasis with left hydrouretronephrosis -Abdominal CT: Marked left hydroureteronephrosis with perinephric stranding and evidence of cortical thinning suggestive of a chronic process. No identifiable obstructive etiology Acute complicated UTI -Urine culture: Pseudomonas aeruginosa -Ceftriaxone discontinued -Cefepime IV intiated - Bladder US done and showed Bladder is partially distended, limits evaluation. Ureteral jets not visualized. - Urology recommended Cystoscopy with left urteral stent placement - Urology was consulted and recommended NM renal scan, Gómez to gravity, Tamsulosin, strain all urine from gómez bag -Patient refuses placement of gómez catheter Cholelithiasis without cholecystitis DENIS on stage IV CKD Type 2 diabetes mellitus: Hemoglobin A1c 8 -Accu cheks -SSI # Diverticulosisn without acute diverticulitis -Abdominal CT: Diverticulosis coli without CT evidence of acute diverticulitis. # CAD s/p 2 stents -resume home homes # HTN urgency- resolved -monitor BP -continue home meds Morbid obesity, 40.3 kg/m2 DVT prophylaxis: Heparin 5000 u SC Goals of care discussed with the patient for 20 minutes: full code Case Discussed with Dr. Bose Plan discussed with: Patient Dietary Evaluation Review Recommendations by RD: Dietary education by RD Comments: 1) Encourage optimal PO intake 2) Advance to 45g CCHO renal diet when medically feasible 3) Refer to outpatient RD/CDCES for diabetes education and weight management 4) Follow-up with urology, nephrology, gastroenterology, and cardiology 5) Continue to monitor I&O, labs, and skin integrity Expected Outcomes/Goals: 1) appetite and labs to improve 2) diet to advance 3) GI symptoms to resolve 4) f/u in 3-5 days Date of Service: Aug 17, 2024 Billing Provider: DURGA BOSE MD Common Visit Codes: [id number] INP/OBS CARE(HIGH) ANTOINETTE STILL RESIDENT Aug 17, 2024 15:10 DURGA BOSE MD Aug 17, 2024 23:48
[2024-08-17 16:34] VITALS: BP 133/80; PULSE 81; RESP 18; TEMP 97.6; O2SAT 93
[2024-08-17 20:00] VITALS: PULSE 81; RESP 12; O2SAT 95
[2024-08-17 21:00] VITALS: BP 144/97; PULSE 81; RESP 12; TEMP 97.3; O2SAT 95
[2024-08-18] VITALS (7 sets, daily range): BP systolic 114–143; BP diastolic 53–87; PULSE 73–95; RESP 17–20; TEMP 97–98.3; O2SAT 95–96
[2024-08-18 06:24] LABS: Hematocrit 31.5 % (41.0-53.0); Hemoglobin 10.3 g/dL (13.5-17.5); Mean Corpuscular Hemoglobin 26.2 pg (28.0-32.0); Mean Corpuscular Volume 80.1 fL (80.0-100.0); Nucleated Red Blood Cells % 0.0 %
[2024-08-18 06:45] LABS: Calcium 9.4 mg/dL (8.7-10.4); Sodium 140 mmol/L (136-145)
[2024-08-18 06:46] LABS: Anion Gap 10 (5-15); Carbon Dioxide 21 mmol/L (20-31)
[2024-08-18 06:49] LABS: Chloride 109 mmol/L (98-107); Potassium 5.2 mmol/L (3.5-5.1)
[2024-08-18 06:51] LABS: BUN/Creatinine Ratio 10.3 (10.0-20.0)
[2024-08-18 06:54] LABS: Blood Urea Nitrogen 27 mg/dL (9-23); Glucose 137 mg/dL (74-106)
[2024-08-18] MEDS: CEFEPIME 1GM/ 50ML 50 ML IV SCH (09:21)
[2024-08-18] MEDS ORDERED: POLYETHYLENE GLYCOL 17 GM PWDR PO PRN (14:00)
--- NOTE | 2024-08-18 14:05 | DVHPNRES ---
Progress Note Date Seen: Aug 18, 2024 Resident Creating Document: ELVIS ROJAS RESIDENT Has the PT tested + for MRSA If YES, has PT been informed?: No Medical Necessity Reason Pt with a Central, PICC or Fol: Yes The following are medically ne: Gómez Catheter Subjective Review of Systems Patient is a 74-year-old male with past medical history of hypertension, hyperlipidemia, CAD with stent placement January 2024, bilateral nephrolithiasis, type 2 diabetes mellitus, low back pain, BPH, morbid obesity who presented to the ED with complaints of diarrhea, which initiated 4 days prior and progressively worsened, which prompted him to seek medical care. Patient states he has diarrhea every time he eats. Additionally, refers lower quadrant abdominal pain since 2 days prior, described as intermittent stabbing, nonradiating, with intensity of 6/10, without aggravating nor relieving factors. Patient denies any recent travel, no sick contacts, eating outside. He states he was discharged from [place] 4 days ago where he was admitted for UTI, was placed on 2 antibiotics and was discharged on antibiotics with removal of left ureteric stent, records were requested from [place] however none could be obtained. Patient Seen at bedside. Patient appears comfortable, alert x3, complained of mild back pain and knee pain. He still has not had a bowel movement since Sunday, so C diff culture was canceled. Patient does not complain of any abdominal pain on palpation, nausea, vomiting, diarrhea, constipation. Today his potassium is 5.2. His urine culture showed Pseudomonas. He was switched from ceftriaxone to cefepime IV. Patient refused Gómez's, and He has been able to urinate without Gómez's. Patient completed NM renal scan, pending results. Objective vital signs Vital Sign Date Time Temp Pulse Resp B/P (MAP) Pulse Ox O2 Delivery O2 Flow Rate FiO2 08/18/24 12:50 98.3 82 17 143/78 (99) 96 98.3 08/18/24 07:51 Room Air* 0 21 Total Intake and Output 08/17/24 08/17/24 08/18/24 15:00 23:00 07:00 Intake Total 50 ml 400 ml 300 ml Output Total 250 ml 350 ml Balance 50 ml 150 ml -50 ml medications Current Medications Medications Dose Ordered Sig/Meli Route Start Time Stop Time Status Last Admin Dose Admin Nitroglycerin 0.4 mg Q5MINP PRN SL 08/14/24 05:00 Morphine Sulfate 2 mg Q30M PRN IV 08/14/24 05:00 Ondansetron HCl 4 mg Q4HPRN PRN IV 08/14/24 05:15 08/15/24 01:43 4 MG Sodium Bicarbonate 650 mg BID PO 08/14/24 10:00 08/18/24 09:27 650 MG Diagnostic Test (Pha) 1 strip ACHS 08/14/24 07:00 08/18/24 11:59 1 STRIP Insulin Human Regular HS SC 08/14/24 22:00 08/17/24 21:59 3 UNITS Insulin Human Regular AC SC 08/14/24 07:00 08/18/24 12:01 3 UNITS Dextrose 50 ml UD PRN IV 08/14/24 05:15 Amlodipine Besylate 10 mg DAILY PO 08/14/24 10:00 08/18/24 09:28 10 MG Aspirin 81 mg DAILY PO 08/14/24 10:00 08/18/24 09:28 81 MG Clopidogrel Bisulfate 75 mg DAILY PO 08/14/24 10:00 08/18/24 09:28 75 MG Acetaminophen 650 mg Q6HP PRN PO 08/14/24 05:15 08/14/24 05:54 650 MG Tamsulosin HCl 0.4 mg QPM PO 08/14/24 18:00 08/17/24 17:44 0.4 MG Heparin Sodium (Porcine) 5,000 units Q12HR SC 08/14/24 10:00 08/18/24 09:25 5,000 UNITS Famotidine 20 mg Q12HR PO 08/14/24 10:00 08/18/24 09:27 20 MG Acetaminophen/ Hydrocodone Bitart 1 tab Q6HP PRN PO 08/14/24 15:45 08/17/24 20:02 1 TAB Mupirocin 1 applic BID EACHNOSTRI 08/16/24 10:00 08/21/24 09:59 08/18/24 09:31 1 APPLIC Cefepime HCl 50 ml @ 12.5 mls/hr DAILY IV 08/18/24 10:00 08/18/24 09:21 12.5 MLS/HR Examination General: Patient alert and oriented in person, place and time. Patient following commands. HEENT: Normocephalic, atraumatic, moist mucous membranes Respiratory/pulmonary: Clear lungs bilaterally, vesicular murmurs present in almost all lung groves, no associated crackles or wheezes. Cardiovascular: Normal heart sounds S1 and S2 with no associated murmurs Abdomen: Abdomen nondistended, there is no pain to palpation in any of the abdominal quadrants, no palpable masses. Obese Abdomen Extremities: There is no peripheral edema present at the lower extremities. mild b/l edema Peripheral Pulses: 3+ Radial (R). 3+ Radial (L). 3+ Dorsalis pedis (R). 3+ Dorsalis pedis(L) Skin: No rashes or pruritus, there is no sacral edema present at this time. Neurological: Intact cranial nerves with no focal neurologic deficits laboratory and microbiology Laboratory Tests 08/18/24 04:55 08/18/24 04:50 Test 08/18/24 04:55 Range/Units Serum Glucose 137 H 74-106 mg/dL Microbiology Date/Time Source Procedure Growth Status 08/14/24 15:20 Nose MRSA Screen - Final Methicillin Resistant S.aureus Complete 08/14/24 04:47 Voided Urine Urine Culture - Final Pseudomonas aeruginosa Complete Problem List/Assessment/Plan Problem List/Assessment/Plan # Acute Gastroenteritis rule out C diff. - patient advanced to mechanical soft diet - C diff culture canceled # Bilateral nephrolithiasis with left hydrouretronephrosis # acute complicated UTI -Urine culture: Pseudomonas aeruginosa -Ceftriaxone discontinued -Cefepime IV intiated - Bladder US done and showed Bladder is partially distended, limits evaluation. Ureteral jets not visualized. - Urology recommended Cystoscopy with left urteral stent placement - Urology was consulted and recommended NM renal scan, Gmóez to gravity, Tamsulosin, strain all urine from gómez bag -Patient refuses placement of gómez catheter - NM scan done, pending results # cholelithiasis without cholecystitis # stage IV CKD # Diverticulosis - Ct Abdomen shows Cholelithiasis, Hepatomegaly, Marked left hydroureteronephrosis with perinephric stranding and evidence of cortical thinning suggestive of a chronic process. No identifiable obstructive etiology, Bilateral nephrolithiasis, Diverticulosis coli without CT evidence of acute diverticulitis. # type 2 diabetes mellitus: Hemoglobin A1c 8 - Gluco-checks and ISS # CAD s/p 2 stents -resume home homes # HTN urgency- resolved -monitor BP -continue home meds #Morbid obesity, 40.3 kg/m2 DVT prophylaxis: Heparin 5000 u SC Goals of care discussed with the patient for 21 minutes: full code Case Discussed with Dr. Ball Plan discussed with: Patient Dietary Evaluation Review Recommendations by RD: Dietary education by RD Comments: 1) Encourage optimal PO intake 2) Advance to 45g CCHO renal diet when medically feasible 3) Refer to outpatient RD/[facility] for diabetes education and weight management 4) Follow-up with urology, nephrology, gastroenterology, and cardiology 5) Continue to monitor I&O, labs, and skin integrity Expected Outcomes/Goals: 1) appetite and labs to improve 2) diet to advance 3) GI symptoms to resolve 4) f/u in 3-5 days Date of Service: Aug 18, 2024 Billing Provider: JAKE BALL MD Common Visit Codes: [id number] INP/OBS CARE(HIGH) ELVIS ROJAS RESIDENT Aug 18, 2024 14:05 JAKE BALL MD Aug 19, 2024 16:20
[2024-08-18] MEDS ORDERED: FUROSEMIDE 40 MG/4 ML VIAL ONE (14:30)
[2024-08-18] MEDS: FUROSEMIDE 40 MG/4 ML VIAL IV ONE (14:38)
[2024-08-18] MEDS: ALBUTEROL SULF 2.5 MG/0.5ML(0.5%) NEB SOLN NEB ONE (15:35)
[2024-08-18] MEDS: SODIUM BICARB 8.4% 50Meq/50ml SYR INJ IV ONE (15:54)
[2024-08-18] MEDS: DEXTROSE (50%) 50ML SYRG IV ONE (16:02)
[2024-08-18] MEDS: InsuLIN REG 1unit/0.01ml Soln (100units/ml) IV ONE (16:11)
[2024-08-18] MEDS: FUROSEMIDE 20 MG/2 ML VIAL IV ONE (16:18)
[2024-08-18] MEDS: SODIUM ZIRCONIUM CYCL 10 GM PAK PO ONE (16:29)
[2024-08-19 01:07] VITALS: BP 131/75; PULSE 84; RESP 19; TEMP 97.8; O2SAT 96
[2024-08-19 05:00] VITALS: BP 158/82; PULSE 89; RESP 19; TEMP 98.6; O2SAT 97
[2024-08-19 05:42] LABS: Anion Gap 9 (5-15); Carbon Dioxide 24 mmol/L (20-31); Chloride 106 mmol/L (98-107); Potassium 4.8 mmol/L (3.5-5.1); Sodium 139 mmol/L (136-145)
[2024-08-19 05:44] LABS: Calcium 9.4 mg/dL (8.7-10.4)
[2024-08-19 05:49] LABS: BUN/Creatinine Ratio 11.0 (10.0-20.0)
[2024-08-19 05:50] LABS: Blood Urea Nitrogen 26 mg/dL (9-23); Glucose 158 mg/dL (74-106)
--- NOTE | 2024-08-19 06:02 | DVH ---
Procedure: WI NM MAG3 RENAL SCAN Exam Date: 08/18/2024 01:34 PM. Clinical History: Left hydroureteronephrosis. Comparison Study: WI NM MAG3 RENAL SCAN on DOS: 01/23/24 Nuclear Medicine Renal Scan with Lasix. Technique: Following the intravenous administration of 11 mCi of technetium 99m labeled MAG-3 , flow images were acquired in one second intervals. This was followed by functional imaging of the kidney s in the posterior projection which were obtained at 20 seconds intervals reconstructed into 2 minut e frames for a total of 34 minutes. 40 mg of Lasix were given IV at the 10 minute juan. Flow curve s and functional renogram curves were generated. Split function data were generated from the first three minutes of the study. Findings: The flow study reveals prompt visualization of the right kidney with delayed visualization of the lef t kidney. The kidneys are otherwise normal size, location and contour. The functional data was obtained with the renal pelvis included in the region of interest: Left: Peak time on the left is 2.2 minutes. Peak to 1/2 peak on the left is 100 minutes. Diuretic T 1/2 on the left is 94 minutes. Right: Peak time on the right is 7.2 minutes. Peak to 1/2 peak on the right is 28 minutes. Diuretic T 1/2 on the right is 35 minutes. Split function is 32 % on the left and 68 % on the right. IMPRESSION: 1. Delayed left radiotracer uptake, consistent with obstruction and/or diminished renal function. 2. Delayed left radiotracer excretion and clearance in response to diuretic, consistent with impaired renal function.
[2024-08-19 09:00] VITALS: BP 132/74; PULSE 96; RESP 20; TEMP 98.4; O2SAT 95
--- NOTE | 2024-08-19 09:36 | DVHPN2 ---
Progress Note - Dictate Date Seen: Aug 19, 2024 Has the PT tested + for MRSA If YES, has PT been informed?: No Medical Necessity Reason Pt with a Central, PICC or Fol: Yes The following are medically ne: [place] Catheter vital signs Vital Sign Date Time Temp Pulse Resp B/P (MAP) Pulse Ox O2 Delivery O2 Flow Rate FiO2 08/19/24 09:11 136/74 08/19/24 09:00 98.4 96 20 95 98.4 08/19/24 07:53 Room Air* 0 21 Total Intake and Output 08/18/24 08/18/24 08/19/24 15:00 23:00 07:00 Intake Total 50 ml 400 ml 200 ml Output Total 400 ml 450 ml Balance 50 ml 0 ml -250 ml medications Current Medications Medications Dose Ordered Sig/Meli Route Start Time Stop Time Status Last Admin Dose Admin Nitroglycerin 0.4 mg Q5MINP PRN SL 08/14/24 05:00 Morphine Sulfate 2 mg Q30M PRN IV 08/14/24 05:00 Ondansetron HCl 4 mg Q4HPRN PRN IV 08/14/24 05:15 08/15/24 01:43 4 MG Sodium Bicarbonate 650 mg BID PO 08/14/24 10:00 08/19/24 09:00 650 MG Diagnostic Test (Pha) 1 strip ACHS 08/14/24 07:00 08/19/24 06:21 1 STRIP Insulin Human Regular HS SC 08/14/24 22:00 08/18/24 22:01 3 UNITS Insulin Human Regular AC SC 08/14/24 07:00 08/19/24 06:21 3 UNITS Dextrose 50 ml UD PRN IV 08/14/24 05:15 Amlodipine Besylate 10 mg DAILY PO 08/14/24 10:00 08/19/24 09:11 10 MG Aspirin 81 mg DAILY PO 08/14/24 10:00 08/19/24 09:00 81 MG Clopidogrel Bisulfate 75 mg DAILY PO 08/14/24 10:00 08/19/24 09:01 75 MG Acetaminophen 650 mg Q6HP PRN PO 08/14/24 05:15 08/14/24 05:54 650 MG Tamsulosin HCl 0.4 mg QPM PO 08/14/24 18:00 08/18/24 18:36 0.4 MG Heparin Sodium (Porcine) 5,000 units Q12HR SC 08/14/24 10:00 08/19/24 08:59 5,000 UNITS Famotidine 20 mg Q12HR PO 08/14/24 10:00 08/19/24 09:00 20 MG Acetaminophen/ Hydrocodone Bitart 1 tab Q6HP PRN PO 08/14/24 15:45 08/19/24 09:18 1 TAB Mupirocin 1 applic BID EACHNOSTRI 08/16/24 10:00 08/21/24 09:59 08/19/24 09:15 1 APPLIC Cefepime HCl 50 ml @ 12.5 mls/hr DAILY IV 08/18/24 10:00 08/19/24 09:02 12.5 MLS/HR Polyethylene Glycol 17 gm DAILYPRN PRN PO 08/18/24 14:00 objective Bladder US shows no ureteral jetting PATIENT: ENOCH KELLEY ACCT: [id number] UNIT: [id number] : 1950 LOC: CENTRAL ROOM / BED: [facility] / A AGE / SEX: 74 / M ADM STATUS: ADM IN SERVICE 1230 ORDERING PHYSICIAN: EMMANUEL PATEL RESIDENT PROCEDURE(s): [facility] - NM MAG3 RENAL SCAN REASON: Left hydroureteronephrosis. ORDER NUMBER(s): [id number], ACCESSION NUMBER(s): [id number] Procedure: NM NM MAG3 RENAL SCAN Exam Date: 08/18/2024 01:34 PM. Clinical History: Left hydroureteronephrosis. Comparison Study: NM NM MAG3 RENAL SCAN on DOS: 01/23/24 Nuclear Medicine Renal Scan with Lasix. Technique: Following the intravenous administration of 11 mCi of technetium 99m labeled MAG-3 , flow images were acquired in one second intervals. This was followed by functional imaging of the kidneys in the posterior projection which were obtained at 20 seconds intervals reconstructed into 2 minute frames for a total of 34 minutes. 40 mg of Lasix were given IV at the 10 minute juan. Flow curves and functional renogram curves were generated. Split function data were generated from the first three minutes of the study. Findings: The flow study reveals prompt visualization of the right kidney with delayed visualization of the left kidney. The kidneys are otherwise normal size, location and contour. The functional data was obtained with the renal pelvis included in the region of interest: Left: Peak time on the left is 2.2 minutes. Peak to 1/2 peak on the left is 100 minutes. Diuretic T 1/2 on the left is 94 minutes. Right: Peak time on the right is 7.2 minutes. Peak to 1/2 peak on the right is 28 minutes. Diuretic T 1/2 on the right is 35 minutes. Split function is 32 % on the left and 68 % on the right. IMPRESSION: 1. Delayed left radiotracer uptake, consistent with obstruction and/or diminished renal function. 2. Delayed left radiotracer excretion and clearance in response to diuretic, consistent with impaired renal function. ATED BY: AAMIR GUERRERO MD DICTATED DATE/TIME: 08/19/24 06 SIGNED BY: AAMIR GUERRERO MD SIGNED DATE/TIME: 08/19/24 06 CC: laboratory and microbiology Laboratory Tests 08/19/24 04:55 Test 08/19/24 04:55 Range/Units Serum Glucose 158 H 74-106 mg/dL Problem List Left hydronephrosis due to obstructive uropathy Assessment/Plan Cystoscopy with left urteral stent placement TBA as outpatient Dietary Evaluation Review Recommendations by RD: Dietary education by RD Comments: 1) Encourage optimal PO intake 2) Advance to 45g CCHO renal diet when medically feasible 3) Refer to outpatient RD/CDCES for diabetes education and weight management 4) Follow-up with urology, nephrology, gastroenterology, and cardiology 5) Continue to monitor I&O, labs, and skin integrity Expected Outcomes/Goals: 1) appetite and labs to improve 2) diet to advance 3) GI symptoms to resolve 4) f/u in 3-5 days Plan discussed with: Patient, Son MATTHEW GREGORYVIRIDIANA Puldio MD Aug 19, 2024 09:36
[2024-08-19 10:29] LABS: Hematocrit 32.2 % (41.0-53.0); Hemoglobin 10.6 g/dL (13.5-17.5); Mean Corpuscular Hemoglobin 26.1 pg (28.0-32.0); Mean Corpuscular Volume 79.4 fL (80.0-100.0); Nucleated Red Blood Cells % 0.2 %
[2024-08-19] MEDS ORDERED: ACETAMINOPHEN 325 MG TAB PO PRN (10:30)
--- NOTE | 2024-08-19 11:24 | DVHPNRES ---
Progress Note Date Seen: Aug 19, 2024 Resident Creating Document: ELVIS ROJAS RESIDENT Has the PT tested + for MRSA If YES, has PT been informed?: No Medical Necessity Reason Pt with a Central, PICC or Fol: Yes The following are medically ne: Gómez Catheter Subjective Review of Systems Patient is a 74-year-old male with past medical history of hypertension, hyperlipidemia, CAD with stent placement January 2024, bilateral nephrolithiasis, type 2 diabetes mellitus, low back pain, BPH, morbid obesity who presented to the ED with complaints of diarrhea, which initiated 4 days prior and progressively worsened, which prompted him to seek medical care. Patient states he has diarrhea every time he eats. Additionally, refers lower quadrant abdominal pain since 2 days prior, described as intermittent stabbing, nonradiating, with intensity of 6/10, without aggravating nor relieving factors. Patient denies any recent travel, no sick contacts, eating outside. He states he was discharged from [place] 4 days ago where he was admitted for UTI, was placed on 2 antibiotics and was discharged on antibiotics with removal of left ureteric stent, records were requested from [place] however none could be obtained. Patient seen at bedside. He complained of low back pain, bilateral knee pain and was given tramadol plus Tylenol. He still has not had a bowel movement since Sunday. Patient is on MiraLax. NM scan was done showing: Delayed left radiotracer uptake, consistent with obstruction and/or diminished renal function, Delayed left radiotracer excretion and clearance in response to diuretic, consistent with impaired renal function. Urology recommended, Cystoscopy with left urteral stent placement to be arranged. Objective vital signs Vital Sign Date Time Temp Pulse Resp B/P (MAP) Pulse Ox O2 Delivery O2 Flow Rate FiO2 08/19/24 09:11 136/74 08/19/24 09:00 98.4 96 20 95 98.4 08/19/24 07:53 Room Air* 0 21 Total Intake and Output 08/18/24 08/18/24 08/19/24 15:00 23:00 07:00 Intake Total 50 ml 400 ml 200 ml Output Total 400 ml 450 ml Balance 50 ml 0 ml -250 ml medications Current Medications Medications Dose Ordered Sig/Meli Route Start Time Stop Time Status Last Admin Dose Admin Ondansetron HCl 4 mg Q4HPRN PRN IV 08/14/24 05:15 08/15/24 01:43 4 MG Sodium Bicarbonate 650 mg BID PO 08/14/24 10:00 08/19/24 09:00 650 MG Diagnostic Test (Pha) 1 strip ACHS 08/14/24 07:00 08/19/24 06:21 1 STRIP Insulin Human Regular HS SC 08/14/24 22:00 08/18/24 22:01 3 UNITS Insulin Human Regular AC SC 08/14/24 07:00 08/19/24 06:21 3 UNITS Dextrose 50 ml UD PRN IV 08/14/24 05:15 Amlodipine Besylate 10 mg DAILY PO 08/14/24 10:00 08/19/24 09:11 10 MG Aspirin 81 mg DAILY PO 08/14/24 10:00 08/19/24 09:00 81 MG Clopidogrel Bisulfate 75 mg DAILY PO 08/14/24 10:00 08/19/24 09:01 75 MG Acetaminophen 650 mg Q6HP PRN PO 08/14/24 05:15 08/14/24 05:54 650 MG Tamsulosin HCl 0.4 mg QPM PO 08/14/24 18:00 08/18/24 18:36 0.4 MG Heparin Sodium (Porcine) 5,000 units Q12HR SC 08/14/24 10:00 08/19/24 08:59 5,000 UNITS Famotidine 20 mg Q12HR PO 08/14/24 10:00 08/19/24 09:00 20 MG Mupirocin 1 applic BID EACHNOSTRI 08/16/24 10:00 08/21/24 09:59 08/19/24 09:15 1 APPLIC Cefepime HCl 50 ml @ 12.5 mls/hr DAILY IV 08/18/24 10:00 08/19/24 09:02 12.5 MLS/HR Polyethylene Glycol 17 gm DAILYPRN PRN PO 08/18/24 14:00 Tramadol HCl 50 mg Q6HP PRN PO 08/19/24 10:30 Acetaminophen 650 mg Q4HP PRN PO 08/19/24 10:30 Examination General: Patient alert and oriented in person, place and time. Patient following commands. HEENT: Normocephalic, atraumatic, moist mucous membranes Respiratory/pulmonary: Clear lungs bilaterally, vesicular murmurs present in almost all lung groves, no associated crackles or wheezes. Cardiovascular: Normal heart sounds S1 and S2 with no associated murmurs Abdomen: Abdomen nondistended, there is no pain to palpation in any of the abdominal quadrants, no palpable masses. Obese Abdomen Extremities: There is no peripheral edema present at the lower extremities. mild b/l edema Peripheral Pulses: 3+ Radial (R). 3+ Radial (L). 3+ Dorsalis pedis (R). 3+ Dorsalis pedis(L) Skin: No rashes or pruritus, there is no sacral edema present at this time. Neurological: Intact cranial nerves with no focal neurologic deficits laboratory and microbiology Laboratory Tests 08/19/24 10:12 08/19/24 04:55 Test 08/19/24 04:55 Range/Units Serum Glucose 158 H 74-106 mg/dL Microbiology Date/Time Source Procedure Growth Status 08/14/24 15:20 Nose MRSA Screen - Final Methicillin Resistant S.aureus Complete 08/14/24 04:47 Voided Urine Urine Culture - Final Pseudomonas aeruginosa Complete Problem List/Assessment/Plan Problem List/Assessment/Plan # Acute Gastroenteritis rule out C diff. - patient advanced to mechanical soft diet - Patient did not have a bowel movement since Sunday - C diff culture canceled # Bilateral nephrolithiasis with left hydrouretronephrosis # Acute complicated UTI -Urine culture: Pseudomonas aeruginosa -Ceftriaxone discontinued -Cefepime IV intiated - Bladder US done and showed Bladder is partially distended, limits evaluation. Ureteral jets not visualized. - Urology recommended Cystoscopy with left urteral stent placement - Urology was consulted and recommended NM renal scan, Gómez to gravity, Tamsulosin, strain all urine from gómez bag - Patient refuses placement of gómez catheter - NM scan done showing: delayed left radiotracer uptake, consistent with obstruction and/or diminished renal function, Delayed left radiotracer excretion and clearance in response to diuretic, consistent with impaired renal function. # Cholelithiasis without cholecystitis # Stage IV CKD # Diverticulosis - Ct Abdomen shows Cholelithiasis, Hepatomegaly, Marked left hydroureteronephrosis with perinephric stranding and evidence of cortical thinning suggestive of a chronic process. No identifiable obstructive etiology, Bilateral nephrolithiasis, Diverticulosis coli without CT evidence of acute diverticulitis. # Type 2 diabetes mellitus: Hemoglobin A1c 8 - Gluco-checks and ISS # CAD s/p 2 stents -resume home homes # HTN urgency- resolved -monitor BP -continue home meds #Morbid obesity, 40.3 kg/m2 DVT prophylaxis: Heparin 5000 u SC Goals of care discussed with the patient for 22 minutes: full code Case Discussed with Dr. Ball Plan discussed with: Patient Dietary Evaluation Review Recommendations by RD: Dietary education by RD Comments: 1) Encourage optimal PO intake 2) Advance to 45g CCHO renal diet when medically feasible 3) Refer to outpatient RD/CD[facility] for diabetes education and weight management 4) Follow-up with urology, nephrology, gastroenterology, and cardiology 5) Continue to monitor I&O, labs, and skin integrity Expected Outcomes/Goals: 1) appetite and labs to improve 2) diet to advance 3) GI symptoms to resolve 4) f/u in 3-5 days ELVIS ROJAS RESIDENT Aug 19, 2024 11:24
[2024-08-19] MEDS ORDERED: TRAM50TA2 PO (11:54)
[2024-08-19] MEDS ORDERED: AMLO1TAB23 PO (11:57)
[2024-08-19] MEDS ORDERED: CIPR500T4 PO (11:57)
[2024-08-19] MEDS ORDERED: ACET-1803 PO (11:57)
[2024-08-19 13:00] VITALS: BP 121/80; PULSE 90; RESP 20; TEMP 98.8; O2SAT 95
--- NOTE | 2024-08-19 14:10 | DVHDSRES ---
Discharge Summary Date of Admission Resident Creating Document: ELVIS ROJAS Aug 14, 2024 at 05:00 Date of Discharge: Aug 19, 2024 Admitting Diagnosis # Acute Gastroenteritis ruled out C diff. Labs/Diagnostic Data: Laboratory Results Test 08/19/24 11:11 08/19/24 10:12 08/19/24 04:55 08/14/24 16:16 POC Glucose 148 mg/dl (70-106) White Blood Count 7.5 10^3/uL (4.4-10.8) Red Blood Count 4.05 10^6/uL (4.5-5.90) Hemoglobin 10.6 g/dL (13.5-17.5) Hematocrit 32.2 % (41.0-53.0) Mean Corpuscular Volume 79.4 fL (80.0-100.0) Mean Corpuscular Hemoglobin 26.1 pg (28.0-32.0) Mean Corpuscular Hemoglobin Concent 32.8 g/dL (32.0-36.0) Red Cell Distribution Width 17.5 % (11.8-14.3) Platelet Count 359 10^3/uL (140-450) Mean Platelet Volume 7.4 fL (6.9-10.8) Neutrophils (%) (Auto) 56.0 % (37.0-80.0) Lymphocytes (%) (Auto) 28.8 % (10.0-50.0) Monocytes (%) (Auto) 10.9 % (0.0-12.0) Eosinophils (%) (Auto) 3.4 % (0.0-7.0) Basophils (%) (Auto) 0.9 % (0.0-2.0) Neutrophils # (Auto) 4.2 10 ^3/uL (1.6-8.6) Lymphocytes # (Auto) 2.2 10 ^3/uL (0.4-5.4) Monocytes # (Auto) 0.8 10 ^3/uL (0-1.3) Eosinophils # (Auto) 0.3 10 ^3/uL (0-0.8) Basophils # (Auto) 0.1 10 ^3/uL (0-0.2) Nucleated Red Blood Cells 0.2 % Sodium Level 139 mmol/L (136-145) Potassium Level 4.8 mmol/L (3.5-5.1) Chloride Level 106 mmol/L (98-107) Carbon Dioxide Level 24 mmol/L (20-31) Anion Gap 9 (5-15) Blood Urea Nitrogen 26 mg/dL (9-23) Creatinine 2.36 mg/dL (0.700-1.30) Glomerular Filtration Rate Calc 28 mL/min (>90) BUN/Creatinine Ratio 11.0 (10.0-20.0) Serum Glucose 158 mg/dL (74-106) Calcium Level 9.4 mg/dL (8.7-10.4) Free Prostate Specific Antigen 0.18 ng/mL (N/A) Percent Free Prostate Specific Ag 36.0 % (.) Prostate Specific Antigen Total 0.5 ng/mL (0.0-4.0) Test 08/14/24 04:47 08/14/24 01:34 Urine Color Light-orange (Yellow) Urine Clarity Ex.turbid (Clear) Urine pH 6.0 (5.0-9.0) Urine Specific [place] 1.026 (1.001-1.035) Urine Protein 3+ (Negative) Urine Ketones Negative (Negative) Urine Blood 3+ /uL (Negative) Urine Nitrite 1+ (Negative) Urine Bilirubin Negative (Negative) Urine Urobilinogen Normal mg/dL (Negative) Urine Leukocyte Esterase 3+ /uL (Negative) Urine RBC 194 /hpf (0 - 3) Urine WBC Clumps Present /hpf (None Seen) Urine Microscopic WBC 1703 /HPF (0-3) Urine Squamous Epithelial Cells None seen /hpf (<5) Urine Bacteria None seen /hpf (None Seen) Urine Glucose 2+ mg/dL (Normal) Hemoglobin A1c 8.0 % A1C (<5.7) Total Bilirubin 0.3 mg/dL (0.2-1.0) Aspartate Amino Transferase (AST) 14 U/L (13-40) Alanine Aminotransferase (ALT) < 9 U/L (7-40) B-Type Natriuretic Peptide 77.00 pg/mL (0-100) Other Laboratory Tests 08/19/24 10:12 08/19/24 04:55 Brief Hx & Hospital Course: The patient is a 74-year-old male , with a complex medical history including hypertension, hyperlipidemia, coronary artery disease status post stent placement in January 2024, bilateral nephrolithiasis, type 2 diabetes mellitus, low back pain, benign prostatic hyperplasia, morbid obesity, and stage IV chronic kidney disease. He presented to the emergency department with complaints of progressively worsening diarrhea over four days, associated with intermittent, non-radiating lower left quadrant abdominal pain rated 6/10. He denied recent travel, sick contacts, or eating outside food. Notably, he had been discharged from [place] four days prior following treatment for a urinary tract infection and removal of a left ureteric stent. Initial labs revealed leukocytosis, elevated creatinine and BUN, and a urinalysis suggestive of UTI. CT abdomen showed cholelithiasis, hepatomegaly, bilateral nephrolithiasis, diverticulosis, and marked left hydroureteronephrosis with cortical thinning. Urine culture grew Pseudomonas aeruginosa, prompting a switch from ceftriaxone to IV cefepime. Urology recommended cystoscopy with left ureteral stent placement, NM renal scan, Mensah catheter placement, and urine straining; however, the patient declined Mensah catheter placement. A nuclear medicine renal scan was completed and showed Delayed left radiotracer uptake, consistent with obstruction and/or diminished renal function, and Delayed left radiotracer excretion and clearance in response to diuretic, consistent with impaired renal function. . The patient was advanced to a mechanical soft diet and C. difficile testing was canceled. His diabetes was managed with glucose checks and insulin sliding scale, and his cardiac medications were resumed. Hypertensive urgency resolved with continued home medications. Nutritional and lifestyle counseling was provided for morbid obesity. The patients condition improved, and he remained hemodynamically stable. He was discharged home with prescribed medical therapy and advised to follow up with urology and primary care in the outpatient setting. Discharge was discussed with the patient, who agreed with the plan. General: Patient alert and oriented in person, place and time. Patient following commands. HEENT: Normocephalic, atraumatic, moist mucous membranes Respiratory/pulmonary: Clear lungs bilaterally, vesicular murmurs present in almost all lung groves, no associated crackles or wheezes. Cardiovascular: Normal heart sounds S1 and S2 with no associated murmurs Abdomen: Abdomen nondistended, there is no pain to palpation in any of the abdominal quadrants, no palpable masses. Obese Abdomen Extremities: There is no peripheral edema present at the lower extremities. Peripheral Pulses: 3+ Radial (R). 3+ Radial (L). 3+ Dorsalis pedis (R). 3+ Dorsalis pedis(L) Skin: No rashes or pruritus, there is no sacral edema present at this time. Neurological: Intact cranial nerves with no focal neurologic deficits Operations or Procedures Exam: CT CT AB PEL WO CON-NO ORAL OR IV History: Left lower quadrant abdominal pain, diarrhea Comparison Study: CT CT AB PEL WO CON-NO ORAL OR IV on DOS: 05/01/24 Technique: Multidetector spiral CT of the abdomen was performed from lung bases to pubic symphysis. Imaging was performed without IV contrast. Axial, coronal and sagittal multiplanar reformats were obtained from the axial data set by the technologist. Radiation Dose : 1. Abdomen/Pelvis: CTDIvol 27.45 mGy, DLP 1660.49 mGy*cm. Findings: Evaluation of solid organs is limited due to lack of intravenous contrast use. Lung Bases: No acute or significant lung base finding. Normal heart size. No pleural or pericardial effusion. Liver: The liver is enlarged, measuring 21.7 cm in craniocaudal dimension.. No focal lesions. Gallbladder and Biliary Tree: Multiple calcified gallstones within the gallbladder. Spleen: Unremarkable Pancreas: The pancreas is grossly normal in appearance. Adrenal Glands: Unremarkable Kidneys: Pronounced left hydronephrosis and ureteral dilatation as well as perinephric stranding and evidence of cortical thinning. No identifiable obstructive etiology. Multiple nonobstructing bilateral pelvocaliceal calculi are noted. Bladder: Grossly unremarkable for degree of distention. Bowel: The stomach is grossly normal in appearance. Small bowel and colon are normal in caliber and distribution. Diverticulosis coli without CT evidence of acute diverticulitis. The appendix is normal. Ascites: Absent Lymphadenopathy: No mesenteric, retroperitoneal or periportal lymphadenopathy. Abdominal Wall and Mesentery: Fat containing umbilical hernia. Vasculature: The visualized abdominal aorta is normal in size and caliber. Atherosclerotic vascular calcifications. Evaluation of abdominal and pelvic vessels is limited due to lack of intravenous contrast. Pelvic Organs: Unremarkable Musculoskeletal: No aggressive focal bony lesions, acute fractures or dislocation. IMPRESSION: 1. Cholelithiasis. 2. Hepatomegaly. 3. Marked left hydroureteronephrosis with perinephric stranding and evidence of cortical thinning suggestive of a chronic process. No identifiable obstructive etiology. 4. Bilateral nephrolithiasis. 5. Diverticulosis coli without CT evidence of acute diverticulitis. Radiation optimization: All CT scans at this facility use at least one of these dose optimization techniques: automated exposure control mA and/or kV adjustment per patient size (includes targeted exams where dose is matched to clinical indication) or iterative reconstruction. Technique: Real-time ultrasound images through the bladder using a transabdominal transducer. Indication: Left hydronephrosis. Please look for Left ureteral jetting Comparison: 08/14/2024 Findings: Bladder is partially distended, limits evaluation. Ureteral jets not visualized. There is an echogenic structure in the right aspect of the bladder. CT from today did not demonstrate evidence for a ureteral stent. Correlate as to whether there has been interval placement of a stent. No calculus seen on the previous CT within the bladder lumen. Cystoscopy/CT cystogram can be obtained to further evaluate this echogenic structure if etiology is still unclear Impression: As above ORDERING PHYSICIAN: EMMANUEL PATEL RESIDENT PROCEDURE(s): [facility] - [place] MAG3 RENAL SCAN REASON: Left hydroureteronephrosis. ORDER NUMBER(s): [id number], ACCESSION NUMBER(s): [id number] Procedure: [facility] MAG3 RENAL SCAN Exam Date: 08/18/2024 01:34 PM. Clinical History: Left hydroureteronephrosis. Comparison Study: NM NM MAG3 RENAL SCAN on DOS: 01/23/24 Nuclear Medicine Renal Scan with Lasix. Technique: Following the intravenous administration of 11 mCi of technetium 99m labeled MAG-3 , flow images were acquired in one second intervals. This was followed by functional imaging of the kidneys in the posterior projection which were obtained at 20 seconds intervals reconstructed into 2 minute frames for a total of 34 minutes. 40 mg of Lasix were given IV at the 10 minute juan. Flow curves and functional renogram curves were generated. Split function data were generated from the first three minutes of the study. Findings: The flow study reveals prompt visualization of the right kidney with delayed visualization of the left kidney. The kidneys are otherwise normal size, location and contour. The functional data was obtained with the renal pelvis included in the region of interest: Left: Peak time on the left is 2.2 minutes. Peak to 1/2 peak on the left is 100 minutes. Diuretic T 1/2 on the left is 94 minutes. Right: Peak time on the right is 7.2 minutes. Peak to 1/2 peak on the right is 28 minutes. Diuretic T 1/2 on the right is 35 minutes. Split function is 32 % on the left and 68 % on the right. IMPRESSION: 1. Delayed left radiotracer uptake, consistent with obstruction and/or diminished renal function. 2. Delayed left radiotracer excretion and clearance in response to diuretic, consistent with impaired renal function. Condition at Discharge: Stable Final Diagnosis/Problems List # Noninfectious Acute Gastroenteritis ruled out C diff. # Bilateral nephrolithiasis with left hydrouretronephrosis # Acute complicated UTI # Cholelithiasis without cholecystitis # DENIS on Stage IV CKD due to VMN # Diverticulosis without Acute diverticulitis # type 2 diabetes mellitus with hyperglycemia: Hemoglobin A1c 8 # CAD s/p 2 stents # HTN urgency- resolved # Morbid obesity, 40.3 kg/m2 Discharge Disposition: Home Discharge Instruct/Medications Diet: Consistent carbohydrate, Cardiac 2g Na,low cholest Activity: No Restrictions, As Tolerated Follow Up/Referral: Follow up with PCP and Urology in 1-2 weeks Medications: As Per EMR Scheduled Acetaminophen (Acetaminophen ER 8 Hour), 650 MG PO TID Amlodipine Besylate (Amlodipine Besylate), 1 TAB PO DAILY Ciprofloxacin Hcl (Ciprofloxacin Hcl), 1 TAB PO BID Clopidogrel Bisulfate (Clopidogrel), 1 TAB PO DAILY, (Reported) Insulin Glargine-Yfgn (Insulin Glargine), 60 UNIT SC DAILY, (Reported) Liraglutide (Victoza), 1.8 MG SUBCUT DAILY, (Reported) Methocarbamol (Methocarbamol), 500 MG PO PRN, (Reported) Tramadol Hcl (Tramadol Hcl), 50 MG PO TID, (Reported) Scheduled PRN Aspirin (Aspir-81), 1 TAB PO DAILY PRN Miscellaneous Medications Atorvastatin Calcium (Atorvastatin Calcium), 1 TAB PO, (Reported) Insulin Aspart Protamine & Asp (Insulin Aspart Protamine/ (70-30) 100 Unit/ml), 10 INJ SC, (Reported) Tamsulosin Hcl (Tamsulosin Hcl), CAP PO, (Reported) Discontinued Medications Amlodipine Besylate-Atorvastat (Amlodipine Besylate/Atorv 5-20 mg), 1 TAB PO, (Reported) Amoxicillin & Pot Clavulanate (Augmentin Tablet), 875 MG PO BID Aspirin (Aspirin Low Dose), 1 TAB PO DAILY, (Reported) Clopidogrel Bisulfate (Plavix), 75 MG PO DAILY Hydrocodone-Acetaminophen (Hydrocodone Bitartrate/AC 10-325 mg), 1 TAB PO BID Discharge Statement: "Patient was advised to return to the ER or call 911 if any headaches, dizziness, shortness of breath, chest pain, abdominal pain, bleeding, fevers, or worsening of medical condition. Patient was counseled about treatment plan, medications, possible side effects, patientverbalized understanding. All questions were answered to the best of my ability. This discharge took greater then 30 minutes in planning, reviewing documentation, counseling the patient, and discussing with other team members." ASSESSMENT ASSESSMENT Assessment Acute Infectious Gastroenteritis ruled out C. diff Date of Service: Aug 19, 2024 Billing Provider: JAKE OCLLINS MD Common Visit Codes: 40178-SUJ/OBS DISCH DAY >30min ELVIS ROJAS Aug 19, 2024 14:10 JAKE COLLINS MD Aug 20, 2024 21:46
[2024-08-19 15:45] VITALS: BP 121/80; PULSE 90; RESP 20; TEMP 98.8; O2SAT 95
== END 2024-08-19 17:07 | disposition home or self-care (01) | DRG 391 ==
LOC: EDBD 00:51 → ER 00:51 → OVERFLOW 05:00 → CENTRAL 14:36
PROVIDERS: ADMIT Student in an Organized Health Care Education/Training Program; ATTEND Student in an Organized Health Care Education/Training Program
DX: A09 Infectious gastroenteritis and colitis, unspecified (principal); N17.0 Acute kidney failure with tubular necrosis; N13.6 Pyonephrosis; N18.4 Chronic kidney disease, stage 4 (severe); R16.0 Hepatomegaly, not elsewhere classified; B96.5 Pseudomonas (aeruginosa) (mallei) (pseudomallei) as the cause of diseases classified elsewhere; D63.1 Anemia in chronic kidney disease; I16.0 Hypertensive urgency; K80.20 Calculus of gallbladder without cholecystitis without obstruction; E11.22 Type 2 diabetes mellitus with diabetic chronic kidney disease; E11.65 Type 2 diabetes mellitus with hyperglycemia; E66.01 Morbid (severe) obesity due to excess calories; Z68.36 Body mass index [BMI] 36.0-36.9, adult; I12.9 Hypertensive chronic kidney disease with stage 1 through stage 4 chronic kidney disease, or unspecified chronic kidney disease; I25.10 Atherosclerotic heart disease of native coronary artery without angina pectoris; G89.29 Other chronic pain; N40.0 Benign prostatic hyperplasia without lower urinary tract symptoms; E78.5 Hyperlipidemia, unspecified; K57.30 Diverticulosis of large intestine without perforation or abscess without bleeding; N20.0 Calculus of kidney; Z79.4 Long term (current) use of insulin; Z79.02 Long term (current) use of antithrombotics/antiplatelets; Z79.82 Long term (current) use of aspirin; Z79.899 Other long term (current) drug therapy; Z87.891 Personal history of nicotine dependence; Z88.8 Allergy status to other drugs, medicaments and biological substances; I25.2 Old myocardial infarction
CPT/HCPCS: 36415; 74176; 76857; 78707; 80048; 81001; 82247; 82962; 83036; 83880; 84154; 84450; 84460; 85025; 87081; 87086; 87088; 87186; 94640; 96365; 96375; G0378; J1815; J2405; J3490

== ENCOUNTER 2025-01-13 00:44 | Inpatient (IN) | payer OTHER ==
[~2025-01-13] VITALS: Ht 177.8 cm; Wt 129.6 kg
[~2025-01-13 00:44] MED LIST changes: +ACET-1803 PO; -AMLO1TAB16 PO; +AMLO1TAB23 PO; -ASPI-325 PO; -AUG875T PO; +CIPR500T4 PO; -CLOP75TA28 PO; -HYDR-4798 PO; +TRAM50TA2 PO
--- NOTE | 2025-01-13 01:14 | ED.PDOC ---
HPI Comments HPI: Poor Historian. 75-year-old male brought in by ambulance from home for evaluation of chest pain started earlier today. Patient already took aspirin and nitroglycerin full-dose prior to arrival. Pain subsided and then recurred again so he took more aspirin and more nitroglycerin. On arrival he is chest pain-free. Patient states that the chest pain happened while he was asleep. Woke him up from his sleep. Past Medical History: MD, diabetes, neuropathy, benign prostate hyperplasia, cardiac stents, obesity Past Surgical History: REVIEW OF SYSTEMS: CONSTITUTIONAL: Denies acute: fever, diaphoresis, chills, generalized weakness. HEAD: Denies acute: headache, photophobia Eyes: Denies acute: Double vision, vision loss, eye pain, eye discharge. EARS: Denies acute: tinnitus, hearing loss, ear discharge, ear pain, THROAT: Denies acute: sore throat, swelling, difficulty swallowing , pain with swallowing, change in voice. NECK: Denies acute: neck pain, neck swelling, stiff neck. HEART: Denies acute : palpitations, LUNGS: Denies acute: SOB, wheezing, cough, hemoptysis ABDOMEN: Denies acute: abdominal pain, Nausea, Vomiting, diarrhea, melena , hematemesis, hematochezia SKIN: Denies acute: rash, redness, lesions, itchiness. EXTREMITIES: Denies acute: calf pain, numbness, tingling, weakness, denies pain in extremity. Denies acute: Low back pain. Neuro: Denies acute: focal neurological deficit, motor or sensory focal neurological deficit, tremors, seizure like activity, confusion, dizziness, change in mental status, loss of bowel or bladder function, cauda equina like symptoms. : Denies acute: dysuria, hematuria, flank pain, increase in urinary frequency. PSYCH: Denies acute: hallucination, suicidal ideation, homicidal ideation. FEMALE: Denies acute: abnormal vaginal bleeding, foul odor, unusual discharge. PHYSICAL EXAM: General: --------acute distress, awake and alert. Head: normocephalic, atraumatic. No raccoon's eyes, no wolfe sign. Neck: supple, trachea is midline, no swelling. Throat: Normal phonation. Eyes:, no erythema, no purulent discharge, no proptosis, no icterus. Heart: regular rate, regular rhythm, no significant murmur appreciated. Lungs: no apparent respiratory distress, Able to speak in full sentences. No wheezing, no rhonchi, no crackles. No stridors Clear to auscultation bilaterally. Abdomen: non tender to palpation, non distended, soft, no guarding, no rebound, + bowel sounds. Neuro: Awake, Alert, oriented to name, self, situation, follows commands GCS=15. Speech is normal. Skin: no petechia, no purpura, no cyanosis, non-pale, not jaundice. Lower extremities: --no - Pitting edema no deformity, no focal swelling, no calf TTP. Makes eye contact. moves all four extremities. Face: no apparent facial droop. No CVA tenderness to percussion bilaterally. Ambulating in the ED independently. Ears: Normal appearing TM b/l, Stroke: finger to nose cerebellar testing is intact. No pronator drift. Symmetrical basket filler muscle strength b/l PERRLA, EOM-I CN 2-12 are grossly intact, Pedal pulses are palpable. No nystagmus. No nuchal rigidity, Kernig's sign, Brudzinski's sign, no meningeal signs. ED COURSE: DISCLAIMER: This medical document was created using an electronic medical record system with voice recognition software and computerized dictation system. Although this document has been carefully reviewed, there might still be some phonetic and typographical errors. Occasional wrong-word or "sound-alike" substitutions may have occurred due to the inherent limitations of voice recognition software. These areas are purely typographical due to imperfections of the software programs and do not reflect any compromise in the patient's medical care. Please read the chart carefully and recognize, using context, where these substitutions have occurred. Chief Complaint: Chest Pain Time Seen by MD: 00:53 Primary Care Provider: PA Reviewed Notes: Allergies Allergies: Coded Allergies: Atorvastatin (Verified Allergy, Unknown, 08/14/24) Home Meds Active Scripts Ciprofloxacin Hcl (Ciprofloxacin Hcl) 500 Mg Tab, 1 TAB PO BID for 10 Days, #20 TAB Prov:EMMANUEL PATEL RESIDENT 08/19/24 Acetaminophen (Acetaminophen ER 8 Hour) 650 Mg Tab, 650 MG PO TID for 14 Days, #42 TAB Prov:PRIYANK PATELRA RESIDENT 08/19/24 Amlodipine Besylate (Amlodipine Besylate) 10 Mg Tab, 1 TAB PO DAILY, #30 TAB 2 Refills Prov:PRIYANK PATELRA RESIDENT 08/19/24 Aspirin (Aspir-81) 81 Mg Tab, 1 TAB PO DAILY PRN for 30 Days, #30 TAB 3 Refills Prov:TEMI CRENSHAW MD 01/24/24 Reported Medications Tramadol Hcl (Tramadol Hcl) 50 Mg Tab, 50 MG PO TID for 14 Days, #42 TAB 08/19/24 Clopidogrel Bisulfate (CLOPIDOGREL) 75 Mg Tab, 1 TAB PO DAILY 05/01/24 Tamsulosin Hcl (Tamsulosin Hcl) 0.4 Mg Cap, CAP PO 05/01/24 Atorvastatin Calcium (ATORVASTATIN CALCIUM) 40 Mg Tab, 1 TAB PO 05/01/24 Insulin Glargine-Yfgn (Insulin Glargine) 100 Unit/Ml Inj, 60 UNIT SC DAILY, INJ 01/22/24 Methocarbamol (Methocarbamol) 500 Mg Tab, 500 MG PO PRN for muscle spasms for 30 Days, MG 01/22/24 Liraglutide (Victoza) 18 Mg/3 Ml Inj, 1.8 MG SUBCUT DAILY, #9 ML 3 Refills 10/14/20 Insulin Aspart Protamine & Asp (Insulin Aspart Protamine/ (70-30) 100 Unit/ml) 1 Inj Inj, 10 INJ SC, INJ 10/14/20 Information Source: Patient, Emergency Med Personnel Mode of Arrival: EMS Past Medical History PAST MEDICAL HISTORY: DM, HTN, Kidney Stones, MD Surgical History: PTCA Family History Family History: Reviewed,noncontributory to illness Social History Smoker: Non-Smoker Alcohol: Denies ETOH Use Drugs: Denies Drug Use Lives In: Home Was a procedure done? Was a procedure done?: No CP Differential Dx Differential Diagnosis: N/A Differential Diagnosis: Other (Ddx include but not limitied to gastritis, musculoskeletal pain, radiculopathy, atypical chest pain, dissection, aneurysm, ACS, unstable angina, hiatal hernia, GERD, anxiety, costochondritis, PE, pneumothroax, neoplasm, cardiac ischemia, drug abuse, anemia.) X-Ray, Labs, Meds, VS Vital Signs Date Time Temp Pulse Resp B/P (MAP) Pulse Ox O2 Delivery O2 Flow Rate FiO2 01/13/25 03:09 152/95 01/13/25 03:00 58 15 132/52 (78) 97 01/13/25 02:00 57 01/13/25 01:59 58 14 96 Room Air* 0 21 01/13/25 01:54 55 01/13/25 01:19 97.5 56 16 150/68 (95) 97 97.5 01/13/25 00:48 57 01/13/25 00:44 97.7 55 24 163/76 97 97.7 Lab Test 01/13/25 04:02 01/13/25 01:30 Range/Units Troponin I High Sensitivity 7 6 </=54 ng/L White Blood Count 7.6 4.4-10.8 10^3/uL Red Blood Count 4.39 L 4.5-5.90 10^6/uL Hemoglobin 12.1 L 13.5-17.5 g/dL Hematocrit 37.0 L 41.0-53.0 % Mean Corpuscular Volume 84.2 80.0-100.0 fL Mean Corpuscular Hemoglobin 27.6 L 28.0-32.0 pg Mean Corpuscular Hemoglobin Concent 32.8 32.0-36.0 g/dL Red Cell Distribution Width 15.5 H 11.8-14.3 % Platelet Count 250 140-450 10^3/uL Mean Platelet Volume 7.8 6.9-10.8 fL Neutrophils (%) (Auto) 54.0 37.0-80.0 % Lymphocytes (%) (Auto) 32.4 10.0-50.0 % Monocytes (%) (Auto) 7.8 0.0-12.0 % Eosinophils (%) (Auto) 4.2 0.0-7.0 % Basophils (%) (Auto) 1.6 0.0-2.0 % Neutrophils # (Auto) 4.1 1.6-8.6 10 ^3/uL Lymphocytes # (Auto) 2.5 0.4-5.4 10 ^3/uL Monocytes # (Auto) 0.6 0-1.3 10 ^3/uL Eosinophils # (Auto) 0.3 0-0.8 10 ^3/uL Basophils # (Auto) 0.1 0-0.2 10 ^3/uL Nucleated Red Blood Cells 0.0 % Sodium Level 140 136-145 mmol/L Potassium Level 5.9 *H 3.5-5.1 mmol/L Chloride Level 111 H 98-107 mmol/L Carbon Dioxide Level 18 L 20-31 mmol/L Anion Gap 11 5-15 Blood Urea Nitrogen 50 H 9-23 mg/dL Creatinine 3.36 H 0.700-1.30 mg/dL Glomerular Filtration Rate Calc 18 >90 mL/min BUN/Creatinine Ratio 14.9 10.0-20.0 Serum Glucose 211 H 74-106 mg/dL Calcium Level 8.5 L 8.7-10.4 mg/dL Total Bilirubin < 0.2 L 0.2-1.0 mg/dL Aspartate Amino Transferase (AST) 8 L 13-40 U/L Alanine Aminotransferase (ALT) 11 7-40 U/L Alkaline Phosphatase 80 46-116 U/L B-Type Natriuretic Peptide 130.98 0-100 pg/mL Total Protein 7.1 5.7-8.2 g/dL Albumin 3.7 3.2-4.8 g/dL Current Medications Medications (Trade) Dose Ordered Sig/Meli Route Start Time Stop Time Status Last Admin Albuterol (Ventolin Medneb) 20 mg ONCE ONCE NEB 01/13/25 03:00 01/13/25 03:01 DC 01/13/25 03:09 Sodium Bicarbonate 50 ml ONCE ONCE IV 01/13/25 03:00 01/13/25 03:01 DC 01/13/25 03:08 Furosemide (Lasix Injection) 40 mg ONCE ONCE IV 01/13/25 03:00 01/13/25 03:01 DC 01/13/25 03:09 Calcium Gluconate/ Sodium Chloride 50 ml @ 120 mls/hr ONCE ONCE IV 01/13/25 03:00 01/13/25 03:24 DC 01/13/25 03:29 Zirconium Oxide (Lokelma) 10 gm ONCE ONCE PO 01/13/25 03:00 01/13/25 03:01 DC 01/13/25 03:08 X-Ray, Labs, Meds, VS Comment [address] [address] Ph: [phone] DIAGNOSTIC IMAGING Diagnostic Imaging Report : [id number] Signed PATIENT: ENOCH KELLEY ACCT: [id number] UNIT: [id number] : 1950 LOC: ER ROOM / BED: / AGE / SEX: 75 / M ADM STATUS: REG ER SERVICE [id number] ORDERING PHYSICIAN: ESTELLE SILVA DO PROCEDURE(s): CXRP - CHEST PORTABLE REASON: cp ORDER NUMBER(s): [id number], ACCESSION NUMBER(s): [id number] CHEST RADIOGRAPH Indication: cp Technique: Single frontal view of the chest was obtained COMPARISON: XY CHEST PORTABLE on DOS: 08/14/24, XY CHEST PORTABLE on DOS: 01/21/24, CHEST PORTABLE on DOS: 12/02/20 FINDINGS: Lines and Tubes: None Lungs: Moderate diffuse increased prominence of the pulmonary vasculature without evidence of focal consolidation. Pleura: No effusion. No pneumothorax. Cardiomediastinal contours: Cardiomegaly. Bones: Unremarkable IMPRESSION: 1. Cardiomegaly with moderate pulmonary vascular congestion. ATED BY: AAMIR GUERRERO MD DICTATED DATE/TIME: 01/13/25250 SIGNED BY: AAMIR GUERRERO MD SIGNED DATE/TIME: 01/13/25250 CC: Time of 1ST Reevaluation: 05:13 Reevaluation 1ST: Improved Patient Education/Counseling: Diagnosis, Treatment Family Education/Counseling: No Family Present Comments MDM: patient presented with the above HPI.--cardiac----workup was initiated. patient was found with the above mentioned diagnosis. the following medications were ordered: please refer to order lists of meds and tests obtained by myself Dr. Silva. Patient ED course and VS have been stabilized. Patient has been reassessed in the ED and remained in a stable condition. Pertinent incidental findings were discussed with the patient and/or family. Patient/family voices understanding and is agreeable with plan. Patient has been observed in the ED adequate length of time to insure improvement/stability. Escalation of care considered: Consideration of escalation to observation or admission Patient was found with a hyperkalemia. Hyperkalemia protocol was initiated. Patient was ADMITTED to the medicine team for further evaluation and treatment of their presentation. All the reports of any imaging studies that were ordered by myself were reviewed by myself. SEPSIS Sepsis Screen Date sepsis recognized/suspect: Jan 13, 2025 Time Sepsis recognized/suspect: 004 Recent Procedure: No On Antibiotic Therapy: No Respiratory Rate >20: No Heart Rate >90: No Temp<36 C (96.8 F) or >38.3 C: No SBP <90 or MAP <65 mmHG: No New Acute Mental Status Change: No Is the patient on CPAP, BIPAP,: No Physician Orders Electrocardigram (01/13/25 03:53) Leather Flesher (01/13/25 ) Chest Portable (01/13/25 00:56) Troponin-I Hs (01/13/25 03:56) Potassium (01/13/25 06:50) Vital Signs Date Time Temp Pulse Resp B/P (MAP) Pulse Ox O2 Delivery O2 Flow Rate FiO2 01/13/25 03:09 152/95 01/13/25 03:00 58 15 132/52 (78) 97 01/13/25 02:00 57 01/13/25 01:59 58 14 96 Room Air* 0 21 01/13/25 01:54 55 01/13/25 01:19 97.5 56 16 150/68 (95) 97 97.5 01/13/25 00:48 57 01/13/25 00:44 97.7 55 24 163/76 97 97.7 Laboratory Tests Test 01/13/25 01:30 White Blood Count 7.6 10^3/uL (4.4-10.8) Medications Medications Dose Ordered Sig/Meli Route Start Time Stop Time Status Last Admin Dose Admin Albuterol 20 mg ONCE ONCE NEB 01/13/25 03:00 01/13/25 03:01 DC 01/13/25 03:09 Calcium Gluconate/ Sodium Chloride 50 ml @ 120 mls/hr ONCE ONCE IV 01/13/25 03:00 01/13/25 03:24 DC 01/13/25 03:29 Furosemide 40 mg ONCE ONCE IV 01/13/25 03:00 01/13/25 03:01 DC 01/13/25 03:09 Sodium Bicarbonate 50 ml ONCE ONCE IV 01/13/25 03:00 01/13/25 03:01 DC 01/13/25 03:08 Zirconium Oxide 10 gm ONCE ONCE PO 01/13/25 03:00 01/13/25 03:01 DC 01/13/25 03:08 Departure 1 Departure Time of Disposition: 01:13 Impression: Primary Impression: Chest pain Additional Impressions: Acute renal failure Hyperkalemia Pulmonary vascular congestion Disposition: ADMITTED INPATIENT Admit to: Tele Condition: Guarded Discharged With: Self Critical Care Note Critical Care Time?: Yes (1 hr-critical care time only) Critical care comment: Due to a high probability of clinically significant, life threatening deterioration, the patient required my highest level of preparedness to intervene emergently and I personally spent this critical care time directly and personally managing the patient. This critical care time included obtaining a history; examining the patient; pulse oximetry; ordering and review of studies; arranging urgent treatment with development of a management plan; evaluation of patient's response to treatment; frequent reassessment; and, discussions with other providers. This critical care time was performed to assess and manage the high probability of imminent, life-threatening deterioration that could result in multi-organ failure. It was exclusive of separately billable procedures and treating other patients and teaching time. Please see my other sections and the rest of the note for further information on patient assessment and treatment. Heart Score Heart Score: Heart Score Response (Comments) Value History Moderate Suspicious 1 EKG Normal 0 Age >65 2 Risk Factors >3 or Hx ASHD 2 Troponin Normal limit 0 Total 5 ESTELLE SILVA DO Jan 13, 2025 01:14
[2025-01-13 01:50] LABS: Hematocrit 37.0 % (41.0-53.0); Hemoglobin 12.1 g/dL (13.5-17.5); Mean Corpuscular Hemoglobin 27.6 pg (28.0-32.0); Mean Corpuscular Volume 84.2 fL (80.0-100.0); Nucleated Red Blood Cells % 0.0 %
--- NOTE | 2025-01-13 01:55 | ECG ---
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
[2025-01-13 01:59] VITALS: PULSE 58; RESP 14; O2SAT 96
[2025-01-13 02:09] LABS: Alanine Aminotransferase 11 U/L (7-40); Albumin 3.7 g/dL (3.2-4.8); Alkaline Phosphatase 80 U/L (46-116); Anion Gap 11 (5-15); BUN/Creatinine Ratio 14.9 (10.0-20.0); Sodium 140 mmol/L (136-145); Total Protein 7.1 g/dL (5.7-8.2)
[2025-01-13 02:12] LABS: Bilirubin, Total < 0.2 mg/dL (0.2-1.0); Blood Urea Nitrogen 50 mg/dL (9-23); Calcium 8.5 mg/dL (8.7-10.4); Carbon Dioxide 18 mmol/L (20-31); Chloride 111 mmol/L (98-107); Glucose 211 mg/dL (74-106)
[2025-01-13 02:13] LABS: Potassium 5.9 mmol/L (3.5-5.1)
--- NOTE | 2025-01-13 02:53 | DVH ---
CHEST RADIOGRAPH Indication: cp Technique: Single frontal view of the chest was obtained COMPARISON: XY CHEST PORTABLE on DOS: 08/14/24, XY CHEST PORTABLE on DOS: 01/21/24, CHEST PORTABLE on DOS: 12/02/20 FINDINGS: Lines and Tubes: None Lungs: Moderate diffuse increased prominence of the pulmonary vasculature without evidence of focal consolidation. Pleura: No effusion. No pneumothorax. Cardiomediastinal contours: Cardiomegaly. Bones: Unremarkable IMPRESSION: 1. Cardiomegaly with moderate pulmonary vascular congestion.
[2025-01-13] MEDS: SODIUM ZIRCONIUM CYCL 10 GM PAK PO ONE (03:08)
[2025-01-13] MEDS: SODIUM BICARB 8.4% 50Meq/50ml SYR INJ IV ONE (03:08)
[2025-01-13] MEDS: ALBUTEROL SULF 2.5 MG/0.5ML(0.5%) NEB SOLN NEB ONE (03:09)
[2025-01-13] MEDS: FUROSEMIDE 40 MG/4 ML VIAL IV ONE (03:09)
[2025-01-13] MEDS: CALCIUM GLUC 1,000mg/50ml-NS 50 ML IV ONE (03:29)
--- NOTE | 2025-01-13 04:23 | ECG ---
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
[2025-01-13] MEDS ORDERED: MORPHINE SULFATE INJ 2 MG/ml SYRG IV PRN (04:30)
[2025-01-13] MEDS ORDERED: DEXTROSE (50%) 50ML SYRG IV PRN (04:30)
[2025-01-13] MEDS ORDERED: ONDANSETRON HCL 4 MG/2 ML VIAL IV PRN (04:30)
[2025-01-13] MEDS ORDERED: NITROGLYCERIN 0.4 MG SL TAB SL PRN (04:30)
[2025-01-13] MEDS ORDERED: ACETAMINOPHEN 325 MG TAB PO PRN ×2 (04:30→17:45)
--- NOTE | 2025-01-13 05:05 | DVHHP2 ---
History of Present Illness Reason for Visit: Chest pain History of Present Illness 75-year-old male presents for evaluation of chest pain. Patient reports a one day history of right-sided sharp chest pain with associated shortness for breath. She reports taking aspirin in the pain subsided temporarily. When it started again he called EMS to be brought in for evaluation. Currently he denies any chest pain. Past Medical History Diabetes mellitus, chronic kidney disease, mi, BPH, obesity Past Surgical History PTCA Family History Noncontributory Smoke: No ALCOHOL: none Drugs: None Lives: with Family Review of Systems Review of Systems Review of systems are currently negative otherwise addressed in HPI. Allergies: Coded Allergies: Atorvastatin (Verified Allergy, Unknown, 08/14/24) Medications Current Medications Medications Dose Ordered Sig/Meli Route Start Time Stop Time Status Last Admin Dose Admin Clopidogrel Bisulfate 75 mg DAILY PO 01/13/25 10:00 Aspirin 81 mg DAILY PO 01/13/25 10:00 Atorvastatin Calcium 40 mg HS PO 01/13/25 22:00 Future Hold Tamsulosin HCl 0.4 mg QPM PO 01/13/25 18:00 Diagnostic Test (Pha) 1 strip ACHS 01/13/25 07:00 Insulin Human Regular ACHS SC 01/13/25 07:00 Dextrose 50 ml UD PRN IV 01/13/25 04:30 Ondansetron HCl 4 mg Q4HP PRN IV 01/13/25 04:30 Acetaminophen 650 mg Q6HP PRN PO 01/13/25 04:30 Nitroglycerin 0.4 mg Q5MINP PRN SL 01/13/25 04:30 Morphine Sulfate 2 mg Q30M PRN IV 01/13/25 04:30 Exam Vital Signs Vital Signs Date Time Temp Pulse Resp B/P (MAP) Pulse Ox O2 Delivery O2 Flow Rate FiO2 01/13/25 04:21 65 01/13/25 03:09 152/95 01/13/25 03:00 15 97 01/13/25 01:59 Room Air* 0 21 01/13/25 01:19 97.5 97.5 Exam Gen: 75-year-old male in mild distress Skin: Warm, dry, normal color and texture, no rash. HEENT: Normocephalic atraumatic, mucous membranes moist and pink. Neck: Cervical and supraclavicular nodes normal without enlargement, trachea is midline, thyroid gland is normal without masses. Pulmonary: Clear to auscultation and percussion bilaterally. Cardiac: Regular rate and rhythm. No murmur Abdomen: Soft, nontender, nondistended, bowel sounds present all 4 quadrants, no guarding, no rigidity, no organomegaly. Extremities: No cyanosis, clubbing, no edema Neuro: Cranial nerves II through XII grossly intact, normal affect and speech, no focal motor deficits. Labs/Xrays ORDERING PHYSICIAN: ESTELLE SILVA DO PROCEDURE(s): CXRP - CHEST PORTABLE REASON: cp ORDER NUMBER(s): [id number], ACCESSION NUMBER(s): [id number] CHEST RADIOGRAPH Indication: cp Technique: Single frontal view of the chest was obtained COMPARISON: XY CHEST PORTABLE on DOS: 08/14/24, XY CHEST PORTABLE on DOS: 01/21/24, CHEST PORTABLE on DOS: 12/02/20 FINDINGS: Lines and Tubes: None Lungs: Moderate diffuse increased prominence of the pulmonary vasculature without evidence of focal consolidation. Pleura: No effusion. No pneumothorax. Cardiomediastinal contours: Cardiomegaly. Bones: Unremarkable IMPRESSION: 1. Cardiomegaly with moderate pulmonary vascular congestion. Labs Test 01/13/25 04:43 01/13/25 01:30 Range/Units White Blood Count 7.6 4.4-10.8 10^3/uL Red Blood Count 4.39 L 4.5-5.90 10^6/uL Hemoglobin 12.1 L 13.5-17.5 g/dL Hematocrit 37.0 L 41.0-53.0 % Mean Corpuscular Volume 84.2 80.0-100.0 fL Mean Corpuscular Hemoglobin 27.6 L 28.0-32.0 pg Mean Corpuscular Hemoglobin Concent 32.8 32.0-36.0 g/dL Red Cell Distribution Width 15.5 H 11.8-14.3 % Platelet Count 250 140-450 10^3/uL Mean Platelet Volume 7.8 6.9-10.8 fL Neutrophils (%) (Auto) 54.0 37.0-80.0 % Lymphocytes (%) (Auto) 32.4 10.0-50.0 % Monocytes (%) (Auto) 7.8 0.0-12.0 % Eosinophils (%) (Auto) 4.2 0.0-7.0 % Basophils (%) (Auto) 1.6 0.0-2.0 % Neutrophils # (Auto) 4.1 1.6-8.6 10 ^3/uL Lymphocytes # (Auto) 2.5 0.4-5.4 10 ^3/uL Monocytes # (Auto) 0.6 0-1.3 10 ^3/uL Eosinophils # (Auto) 0.3 0-0.8 10 ^3/uL Basophils # (Auto) 0.1 0-0.2 10 ^3/uL Nucleated Red Blood Cells 0.0 % Sodium Level 140 136-145 mmol/L Potassium Level 5.9 *H 3.5-5.1 mmol/L Chloride Level 111 H 98-107 mmol/L Carbon Dioxide Level 18 L 20-31 mmol/L Anion Gap 11 5-15 Blood Urea Nitrogen 50 H 9-23 mg/dL Creatinine 3.36 H 0.700-1.30 mg/dL Glomerular Filtration Rate Calc 18 >90 mL/min BUN/Creatinine Ratio 14.9 10.0-20.0 Serum Glucose 211 H 74-106 mg/dL Calcium Level 8.5 L 8.7-10.4 mg/dL Total Bilirubin < 0.2 L 0.2-1.0 mg/dL Aspartate Amino Transferase (AST) 8 L 13-40 U/L Alanine Aminotransferase (ALT) 11 7-40 U/L Alkaline Phosphatase 80 46-116 U/L B-Type Natriuretic Peptide 130.98 0-100 pg/mL Total Protein 7.1 5.7-8.2 g/dL Albumin 3.7 3.2-4.8 g/dL SEPSIS Sepsis Screen Date sepsis recognized/suspect: Jan 13, 2025 Time Sepsis recognized/suspect: 0209 Recent Procedure: No On Antibiotic Therapy: No Respiratory Rate >20: No Heart Rate >90: No Temp<36 C (96.8 F) or >38.3 C: No SBP <90 or MAP <65 mmHG: No New Acute Mental Status Change: No Is the patient on CPAP, BIPAP,: No Physician Orders Electrocardigram (01/13/25 03:53) Rewards Consultant (01/13/25 ) Chest Portable (01/13/25 00:56) Troponin-I Hs (01/13/25 03:56) Potassium (01/13/25 06:50) *[facility] (01/13/25 04:17) Clopidogrel Bisulfate (Plavix) (01/13/25 10:00) Atorvastatin (Lipitor) (01/13/25 22:00) Tamsulosin Hydrochloride (Flomax) (01/13/25 18:00) Basic Metabolic Panel (01/13/25 06:00) Glucose Blood (Accu-Chek Comfort Curve T (01/13/25 07:00) Insulin R (Human) (Insulin R) (01/13/25 07:00) Dextrose 50% Syringe (01/13/25 04:30) Admit (01/13/25 04:17) Ondansetron Hcl (Zofran) (01/13/25 04:30) Cardiac Diet-2gna,Lofat,Lochol (01/13/25 Breakfast) Echo 2d Mode Cardiac Dop (01/13/25 04:17) Condition: Fair (01/13/25 04:17) Acetaminophen Tablet (Tylenol Tablet) (01/13/25 04:30) Bedrest With Bathroom Privileg (01/13/25 04:17) Nitroglycerin Sublingual (Ntrostat Subli (01/13/25 04:30) Morphine Sulfate Injection (01/13/25 04:30) Stat Ekg For Chest Pain (01/13/25 04:17) Notify Md Of Changes From Base (01/13/25 04:17) Block Paver For 24 Hours (01/13/25 04:17) Emergency Dysrhythmia Protocol (01/13/25 04:17) Rhythm Strips Once Every Shift (01/13/25 04:17) Oxygen By Nasal Cannula (01/13/25 04:17) Aspirin Enteric Coated Tablet (Ecotrin E (01/13/25 10:00) Vital Signs Date Time Temp Pulse Resp B/P (MAP) Pulse Ox O2 Delivery O2 Flow Rate FiO2 01/13/25 04:21 65 01/13/25 03:09 152/95 01/13/25 03:00 58 15 132/52 (78) 97 01/13/25 02:00 57 01/13/25 01:59 58 14 96 Room Air* 0 21 01/13/25 01:54 55 01/13/25 01:19 97.5 56 16 150/68 (95) 97 97.5 01/13/25 00:48 57 01/13/25 00:44 97.7 55 24 163/76 97 97.7 Laboratory Tests Test 01/13/25 01:30 White Blood Count 7.6 10^3/uL (4.4-10.8) Medications Medications Dose Ordered Sig/Meli Route Start Time Stop Time Status Last Admin Dose Admin Albuterol 20 mg ONCE ONCE NEB 01/13/25 03:00 01/13/25 03:01 DC 01/13/25 03:09 20 MG Calcium Gluconate/ Sodium Chloride 50 ml @ 120 mls/hr ONCE ONCE IV 01/13/25 03:00 01/13/25 03:24 DC 01/13/25 03:29 120 MLS/HR Furosemide 40 mg ONCE ONCE IV 01/13/25 03:00 01/13/25 03:01 DC 01/13/25 03:09 40 MG Sodium Bicarbonate 50 ml ONCE ONCE IV 01/13/25 03:00 01/13/25 03:01 DC 01/13/25 03:08 50 ML Zirconium Oxide 10 gm ONCE ONCE PO 01/13/25 03:00 01/13/25 03:01 DC 01/13/25 03:08 10 GM Assessment/Plan Assessment/Plan Assessment Chest pain rule out ACS Acute on chronic renal failure with hyperkalemia Diabetes mellitus Status post PTCA Plan Admit the patient to telemetry to the hospitalist Nephrology consultation Echocardiogram pending ACS protocol Resume home medications Continue treatment per orders. Plan discussed with: Patient My Orders Orders - TEMI SANTIAGOWendy Procedure Category Date Status Time *[facility] CONS 01/13/25 Transmitted -[place] 04:17 Clopidogrel Bisulfate PHA 01/13/25 In Process (Plavix) 10:00 Atorvastatin (Lipitor) PHA 01/13/25 In Process 22:00 Tamsulosin PHA 01/13/25 In Process Hydrochloride (Flomax) 18:00 Basic Metabolic Panel LAB 01/13/25 Logged 06:00 Glucose Blood PHA 01/13/25 In Process (Accu-Chek Comfort 07:00 Insulin R (Human) PHA 01/13/25 In Process (Insulin R) 07:00 Dextrose 50% Syringe [facility] 01/13/25 In Process 04:30 Admit ADMIT 01/13/25 Transmitted 04:17 Ondansetron Hcl PHA 01/13/25 In Process (Zofran) 04:30 Cardiac DIET 01/13/25 Transmitted Diet-2gna,Lofat,Lochol Breakfast Echo 2d Mode Cardiac US 01/13/25 Logged DOP 04:17 Condition: Fair [facility] 01/13/25 In Process 04:17 Acetaminophen Tablet [facility] 01/13/25 In Process (Tylenol Tablet) 04:30 Bedrest With Bathroom [facility] 01/13/25 In Process Privileg 04:17 Nitroglycerin [facility] 01/13/25 In Process Sublingual (Ntrostat 04:30 Morphine Sulfate [facility] 01/13/25 In Process Injection 04:30 Stat Ekg For Chest [facility] 01/13/25 In Process Pain 04:17 Notify Md Of Changes [facility] 01/13/25 In Process From Base 04:17 Block Paver For [facility] 01/13/25 In Process 24 Hours 04:17 Emergency Dysrhythmia [facility] 01/13/25 In Process Protocol 04:17 Rhythm Strips Once [facility] 01/13/25 In Process Every Shift 04:17 Oxygen By Nasal RT 01/13/25 Transmitted Cannula 04:17 Aspirin Enteric PHA 01/13/25 In Process Coated Tablet 10:00 Date of Service: Jan 13, 2025 Billing Provider: TEMI SANTIAGO Common Visit Codes: [id number] INP/OBS CARE (HIGH) TEMI SANTIAGO Jan 13, 2025 05:05
[2025-01-13 05:30] LABS: Cholesterol 165 mg/dL (< 200)
[2025-01-13 05:33] LABS: HDL Cholesterol 27 mg/dL (40-59); Triglycerides 196 mg/dL (< 150)
[2025-01-13 06:41] LABS: Sodium 139 mmol/L (136-145)
[2025-01-13 06:42] LABS: Calcium 8.9 mg/dL (8.7-10.4); Chloride 112 mmol/L (98-107); Potassium 5.3 mmol/L (3.5-5.1)
[2025-01-13 06:43] LABS: Anion Gap 8 (5-15); Carbon Dioxide 19 mmol/L (20-31)
[2025-01-13 06:47] LABS: BUN/Creatinine Ratio 14.6 (10.0-20.0)
[2025-01-13 06:49] LABS: Blood Urea Nitrogen 51 mg/dL (9-23); Glucose 213 mg/dL (74-106)
[2025-01-13] MEDS: CLOPIDOGREL BISULFATE 75 MG TAB PO SCH (08:13)
[2025-01-13] MEDS: ASPirin-EC 81 mg tab PO SCH (08:13)
[2025-01-13] MEDS: InsuLIN REG 1unit/0.01ml Soln (100units/ml) SC SCH (08:20)
[2025-01-13] MEDS: ACCU-CHEK COMFORT CURVE STRIP VI SCH (08:21)
[2025-01-13 09:03] LABS: Urine Protein, UAD 2+ (Negative); Urine WBC Clumps PRESENT /hpf (None Seen)
[2025-01-13 09:12] LABS: Protein, Urine 343.3 mg/dL (1-14)
--- NOTE | 2025-01-13 09:45 | DVH ---
CLINICAL HISTORY: shobha TECHNIQUE: Complete ultrasound exam of the kidneys and bladder was performed. COMPARISON: NM NM MAG3 RENAL SCAN on DOS: 08/18/24, US BLADDER on DOS: 08/14/24, US KIDNEY on DOS: 05/01/24, NM NM MAG3 RENAL SCAN on DOS: 01/23/24, US KIDNEY on DOS: 01/21/24 FINDINGS: The right kidney has normal echogenicity and measures 14.7 cm. There is no focal parenchymal abnormality. There is a 9 mm nonobstructing stone. There is no hydronephrosis. The left kidney has normal echogenicity and measures 11.2 cm. There is no focal parenchymal abnormality or evidence for stone. There is moderate hydronephrosis. The bladder is grossly unremarkable. IMPRESSION: Moderate left hydronephrosis. 9 mm nonobstructing right renal calculus.
--- NOTE | 2025-01-13 10:39 | ECG ---
[facility] Test Date: 2025-01-13 Test Time: 00:48:55 Pat Name: ENOCH KELLEY Department: Room: 0294T Gender: M Head Rose Grower: KALPESH : 1950 Requested By: EMERGENCY EMERGENCY Order Number: [id number] Reading MD: Bartolome Bowles Measurements Intervals [place] Rate: 57 P: 24 IN: 269 QRS: 27 QRSD: 161 T: 10 QT: 456 QTc: 444 Interpretive Statements Sinus rhythm Prolonged IN interval Right bundle branch block Baseline wander in lead(s) V1,V2 Electronically Signed On 01-15-2025 19:24:56 PST by Bartolome Bowles Please click the below link to view image of tracing.
--- NOTE | 2025-01-13 11:11 | DVHCONRES ---
Date Seen: Jan 13, 2025 Resident Creating Document: CARRINGTON CROUCH RESIDENT Referring Physician Dr Alegria Reason for Consultation denis History of Present Illness ENOCH KELLEY is a 75-year-old male presents for evaluation of chest pain. Patient reports a one day history of right-sided sharp chest pain with associated shortness for breath. She reports taking aspirin in the pain subsided temporarily. When it started again he called EMS to be brought in for evaluation. Currently he denies any chest pain. PMH: Type 2 DM, CKD, CAD, BPH, obesity PSH: PTCA Family history: Noncontributory Social history: Lives with the family. Denies smoking, alcohol and other drug abuse Allergies: Atorvastatin Review of the systems: Patient seen and examined at the bedside currently repor ting chest pain and shortness of breaths but rest of ROS is negative. Family History: Cardiovascular disease G8 MOTHER Cerebrovascular accident (CVA) G8 MOTHER Allergies: Coded Allergies: Atorvastatin (Verified Allergy, Unknown, 08/14/24) Home Meds Active Scripts Ciprofloxacin Hcl (Ciprofloxacin Hcl) 500 Mg Tab, 1 TAB PO BID for 10 Days, #20 TAB Prov:EMMANUEL ALEGRIA RESIDENT 08/19/24 Acetaminophen (Acetaminophen ER 8 Hour) 650 Mg Tab, 650 MG PO TID for 14 Days, #42 TAB Prov:EMMANUEL ALEGRIA RESIDENT 08/19/24 Amlodipine Besylate (Amlodipine Besylate) 10 Mg Tab, 1 TAB PO DAILY, #30 TAB 2 Refills Prov:EMMANUEL ALEGRIA 08/19/24 Aspirin (Aspir-81) 81 Mg Tab, 1 TAB PO DAILY PRN for 30 Days, #30 TAB 3 Refills Prov:TEMI CRENSHAW MD 01/24/24 Reported Medications Tramadol Hcl (Tramadol Hcl) 50 Mg Tab, 50 MG PO TID for 14 Days, #42 TAB 08/19/24 Clopidogrel Bisulfate (CLOPIDOGREL) 75 Mg Tab, 1 TAB PO DAILY 05/01/24 Tamsulosin Hcl (Tamsulosin Hcl) 0.4 Mg Cap, CAP PO 05/01/24 Atorvastatin Calcium (ATORVASTATIN CALCIUM) 40 Mg Tab, 1 TAB PO 05/01/24 Insulin Glargine-Yfgn (Insulin Glargine) 100 Unit/Ml Inj, 60 UNIT SC DAILY, INJ 01/22/24 Methocarbamol (Methocarbamol) 500 Mg Tab, 500 MG PO PRN for muscle spasms for 30 Days, MG 01/22/24 Liraglutide (Victoza) 18 Mg/3 Ml Inj, 1.8 MG SUBCUT DAILY, #9 ML 3 Refills 10/14/20 Insulin Aspart Protamine & Asp (Insulin Aspart Protamine/ (70-30) 100 Unit/ml) 1 Inj Inj, 10 INJ SC, INJ 10/14/20 Current Medications Current Medications Medications (Trade) Dose Ordered Sig/Meli Route PRN Reason Start Time Stop Time Status Last Admin Clopidogrel Bisulfate (Plavix) 75 mg DAILY PO 01/13/25 10:00 01/13/25 08:13 Aspirin (Ecotrin Enteric Coated Tablet) 81 mg DAILY PO 01/13/25 10:00 01/13/25 08:13 Atorvastatin Calcium (Lipitor) 40 mg HS PO 01/13/25 22:00 Future Hold Tamsulosin HCl (Flomax) 0.4 mg QPM PO 01/13/25 18:00 Diagnostic Test (Pha) (Accu-Chek Comfort Curve T) 1 strip ACHS 01/13/25 07:00 01/13/25 08:21 Insulin Human Regular (InsuLIN R) ACHS SC 01/13/25 07:00 Dextrose 50 ml UD PRN IV Blood Sugar LESS THAN 60 01/13/25 04:30 Ondansetron HCl (Zofran) 4 mg Q4HP PRN IV NAUSEA / VOMITING 01/13/25 04:30 Acetaminophen (Tylenol Tablet) 650 mg Q6HP PRN PO PAIN SCALE 1-3 OR TEMP>100.4 01/13/25 04:30 Nitroglycerin (Ntrostat Sublingual) 0.4 mg Q5MINP PRN SL FOR CHEST PAIN 01/13/25 04:30 Morphine Sulfate 2 mg Q30M PRN IV FOR CHEST PAIN 01/13/25 04:30 Vital Signs Vital Signs Date Time Temp Pulse Resp B/P (MAP) Pulse Ox O2 Delivery O2 Flow Rate FiO2 01/13/25 10:00 65 12 136/55 (82) 97 01/13/25 07:43 Room Air* 0 21 01/13/25 07:42 97.9 97.9 Physical Exam Pt is lying on bed General Appearance: Alert, Oriented X3, Cooperative, Mild acute distress HEENT: Atraumatic, Mucous membranes moist/pink Respiratory: Diffuse crackles to bilateral breath sounds Cardiovascular: Regular rate, Normal S1, Normal S2, No murmurs Abdominal: Active bowel sounds, Soft, no distention, no tenderness Extremities: Skin: No Significant rash, except past surgical scars Neuro: Normal speech, sensorimotor deficits none Psych/Mental Status: Mental status NL, Mood NL Nurse was there as department clerk during examination Labs/Diagnostic Data Labs Test 01/13/25 06:18 01/13/25 04:43 01/13/25 03:30 01/13/25 01:30 Range/Units Sodium Level 139 136-145 mmol/L Potassium Level 5.3 H 3.5-5.1 mmol/L Chloride Level 112 H 98-107 mmol/L Carbon Dioxide Level 19 L 20-31 mmol/L Anion Gap 8 5-15 Blood Urea Nitrogen 51 H 9-23 mg/dL Creatinine 3.50 H 0.700-1.30 mg/dL Glomerular Filtration Rate Calc 17 >90 mL/min BUN/Creatinine Ratio 14.6 10.0-20.0 Serum Glucose 213 H 74-106 mg/dL Calcium Level 8.9 8.7-10.4 mg/dL Troponin I High Sensitivity 7 </=54 ng/L Triglycerides Level 196 H < 150 mg/dL Cholesterol Level 165 < 200 mg/dL LDL Cholesterol 110 H < 100 mg/dL HDL Cholesterol 27 L 40-59 mg/dL Urine Color Brown H Yellow Urine Clarity Ex.turbid Clear Urine pH 6.0 5.0-9.0 Urine Specific [place] 1.015 1.001-1.035 Urine Protein 2+ H Negative Urine Ketones Negative Negative Urine Blood 2+ H Negative /uL Urine Nitrite 1+ H Negative Urine Bilirubin Negative Negative Urine Urobilinogen Normal Negative mg/dL Urine Leukocyte Esterase 3+ Negative /uL Urine RBC 107 0 - 3 /hpf Urine WBC Clumps Present None Seen /hpf Urine Microscopic WBC 5361 H 0-3 /HPF Urine Squamous Epithelial Cells Few <5 /hpf Urine Bacteria None seen None Seen /hpf Urine Sperm Present None Seen /hpf Urine Creatinine 58.48 30.0-125.0 mg/dL Urine Sodium 80 40-220 mmol/L Urine Glucose 2+ H Normal mg/dL Urine Total Protein 343.3 H 1-14 mg/dL White Blood Count 7.6 4.4-10.8 10^3/uL Red Blood Count 4.39 L 4.5-5.90 10^6/uL Hemoglobin 12.1 L 13.5-17.5 g/dL Hematocrit 37.0 L 41.0-53.0 % Mean Corpuscular Volume 84.2 80.0-100.0 fL Mean Corpuscular Hemoglobin 27.6 L 28.0-32.0 pg Mean Corpuscular Hemoglobin Concent 32.8 32.0-36.0 g/dL Red Cell Distribution Width 15.5 H 11.8-14.3 % Platelet Count 250 140-450 10^3/uL Mean Platelet Volume 7.8 6.9-10.8 fL Neutrophils (%) (Auto) 54.0 37.0-80.0 % Lymphocytes (%) (Auto) 32.4 10.0-50.0 % Monocytes (%) (Auto) 7.8 0.0-12.0 % Eosinophils (%) (Auto) 4.2 0.0-7.0 % Basophils (%) (Auto) 1.6 0.0-2.0 % Neutrophils # (Auto) 4.1 1.6-8.6 10 ^3/uL Lymphocytes # (Auto) 2.5 0.4-5.4 10 ^3/uL Monocytes # (Auto) 0.6 0-1.3 10 ^3/uL Eosinophils # (Auto) 0.3 0-0.8 10 ^3/uL Basophils # (Auto) 0.1 0-0.2 10 ^3/uL Nucleated Red Blood Cells 0.0 % Total Bilirubin < 0.2 L 0.2-1.0 mg/dL Aspartate Amino Transferase (AST) 8 L 13-40 U/L Alanine Aminotransferase (ALT) 11 7-40 U/L Alkaline Phosphatase 80 46-116 U/L B-Type Natriuretic Peptide 130.98 0-100 pg/mL Total Protein 7.1 5.7-8.2 g/dL Albumin 3.7 3.2-4.8 g/dL Thyroid Stimulating Hormone (TSH) 2.22 0.55-4.78 uIU/mL Assessment DENIS hemodynamic mediated likely VMN on CKD 3 V/S obstructive uropathy Hyperkalemia Left hydronephrosis Right 9 mm nephrolithiasis Uncontrolled diabetes mellitus Possible HFrEF, pending echo Chest pain r/o ACS, Hx of [place] s/p PTCA Obesity morbid with a BMI 40.2 Dyslipidemia Plan/recommendations Urine studies A.m. BMP Kidney ultrasound normal echogenicity but left hydronephrosis and nitrite nephrolithiasis Echocardiogram Monitor kidney functions Strict I&Os, Rest of management per primary team Case discussed with Dr Navarro Plan discussed with: Patient MIKOCARRINGTON RESIDENT Jan 13, 2025 11:11
[2025-01-13 13:30] VITALS: PULSE 60; RESP 11; O2SAT 94
[2025-01-13 17:00] VITALS: BP 163/85; PULSE 66; RESP 18; TEMP 97.2; O2SAT 97
[2025-01-13 17:34] VITALS: BP 130/70; PULSE 61; PULSE 66; RESP 13; RESP 18; TEMP 98; O2SAT 96; O2SAT 97
[2025-01-13] MEDS: TAMSULOSIN HYDROCHLORIDE 0.4 MG CAP PO SCH (18:22)
[2025-01-13] MEDS: HYDROcodone-ACET 5/325MG TAB PO PRN (18:22)
[2025-01-13 20:00] VITALS: PULSE 62; PULSE 64; RESP 18; O2SAT 96
[2025-01-13 21:00] VITALS: BP 135/84; PULSE 64; RESP 18; TEMP 97.9; O2SAT 96
[2025-01-13] MEDS: INSULIN LANTUS (GLARGINE) 1 /0.01ml (100units/ml) SC SCH (21:40)
[2025-01-13] MEDS ORDERED: ATORVASTATIN 20 MG TAB PO SCH (22:00)
[2025-01-14 01:00] VITALS: BP 160/70; PULSE 61; RESP 18; TEMP 98; O2SAT 94
[2025-01-14 05:00] VITALS: BP 125/62; PULSE 65; RESP 18; TEMP 98; O2SAT 95
[2025-01-14 07:34] LABS: Hematocrit 39.6 % (41.0-53.0); Hemoglobin 13.1 g/dL (13.5-17.5); Mean Corpuscular Hemoglobin 27.9 pg (28.0-32.0); Mean Corpuscular Volume 84.2 fL (80.0-100.0); Nucleated Red Blood Cells % 0.0 %
[2025-01-14 07:52] LABS: Anion Gap 9 (5-15); Sodium 139 mmol/L (136-145)
[2025-01-14 07:53] LABS: Calcium 9.3 mg/dL (8.7-10.4)
[2025-01-14 07:56] LABS: Carbon Dioxide 20 mmol/L (20-31); Chloride 110 mmol/L (98-107); Potassium 5.3 mmol/L (3.5-5.1)
[2025-01-14 07:58] LABS: BUN/Creatinine Ratio 11.5 (10.0-20.0)
[2025-01-14 08:00] VITALS: PULSE 75; PULSE 77; RESP 18; O2SAT 94
[2025-01-14 08:06] LABS: Blood Urea Nitrogen 39 mg/dL (9-23); Glucose 159 mg/dL (74-106)
[2025-01-14 09:00] VITALS: BP 129/61; PULSE 75; RESP 18; TEMP 97.4; O2SAT 94
--- NOTE | 2025-01-14 11:22 | DVHSR ---
APPROVED REPORT EXAM: Two-dimensional and M-mode echocardiogram with Doppler and color Doppler. Blood Pressure: 135/69 mmHg INDICATION Dyspnea Heart Failure EF RISK FACTORS Obesity: Height: 5'10", Weight: 279 DIMENSIONS LVDd 5.8 (3.8-5.7cm) LA (2D) 5.3 (1.9-4.0cm) Aortic Root 3.6 (2.0-3.7cm) LVDs 4.1 (2.5-4.0cm) LA (MM) (1.9-4.0cm) Aortic Cusp Exc 2.2 (1.5-2.0cm) EF (%) 50.0 (55-70%) Rt. Atrium 4.8 (1.9-4.0cm) Asc. Aorta cm IVSd 1.4 (0.7-1.1cm) RV (D) 4.9 (1.8-2.4cm) PWd 1.4 (0.7-1.1cm) Mitral Valve Mitral Mitral Stenosis E wave 0.98m/s MV Mean GR. mmHg A wave 1.55m/s MV Peak GR. mmHg E/A ratio 0.6 2D MVA cm2 DECEL Time 183ms PRESS 1/2 Time ms Aortic Valve Aortic Valve Aortic Stenosis V1 1.16m/s AO Mean GR. 4mmHg V2 1.46m/s AO Peak GR. 9mmHg LVOT Diameter 2.5 (1.8-2.4cm) Doppler JANAY 3.90cm2 Pulmonic Valve V2 1.06m/s Other Information Quality : Technically Limited Rhythm : Technically limited study due to body habitus. Conclusion LVEF 50-55%, mild diastolic dysfunction Right ventricle [id number] dilated with normal function Left and right atrium moderately dilated
[2025-01-14 13:00] VITALS: BP 142/82; PULSE 74; RESP 18; TEMP 97.8; O2SAT 96
--- NOTE | 2025-01-14 17:54 | DVHDS2 ---
Discharge Summary Date of Admission Jan 13, 2025 at 04:17 Date of Discharge: Jan 14, 2025 Labs/Diagnostic Data: Laboratory Results Test 01/14/25 11:31 01/14/25 06:39 01/13/25 04:43 01/13/25 03:30 POC Glucose 237 mg/dl (70-106) White Blood Count 7.7 10^3/uL (4.4-10.8) Red Blood Count 4.70 10^6/uL (4.5-5.90) Hemoglobin 13.1 g/dL (13.5-17.5) Hematocrit 39.6 % (41.0-53.0) Mean Corpuscular Volume 84.2 fL (80.0-100.0) Mean Corpuscular Hemoglobin 27.9 pg (28.0-32.0) Mean Corpuscular Hemoglobin Concent 33.1 g/dL (32.0-36.0) Red Cell Distribution Width 15.0 % (11.8-14.3) Platelet Count 282 10^3/uL (140-450) Mean Platelet Volume 7.7 fL (6.9-10.8) Neutrophils (%) (Auto) 59.0 % (37.0-80.0) Lymphocytes (%) (Auto) 28.2 % (10.0-50.0) Monocytes (%) (Auto) 8.0 % (0.0-12.0) Eosinophils (%) (Auto) 3.6 % (0.0-7.0) Basophils (%) (Auto) 1.2 % (0.0-2.0) Neutrophils # (Auto) 4.5 10 ^3/uL (1.6-8.6) Lymphocytes # (Auto) 2.2 10 ^3/uL (0.4-5.4) Monocytes # (Auto) 0.6 10 ^3/uL (0-1.3) Eosinophils # (Auto) 0.3 10 ^3/uL (0-0.8) Basophils # (Auto) 0.1 10 ^3/uL (0-0.2) Nucleated Red Blood Cells 0.0 % Sodium Level 139 mmol/L (136-145) Potassium Level 5.3 mmol/L (3.5-5.1) Chloride Level 110 mmol/L (98-107) Carbon Dioxide Level 20 mmol/L (20-31) Anion Gap 9 (5-15) Blood Urea Nitrogen 39 mg/dL (9-23) Creatinine 3.38 mg/dL (0.700-1.30) Glomerular Filtration Rate Calc 18 mL/min (>90) BUN/Creatinine Ratio 11.5 (10.0-20.0) Serum Glucose 159 mg/dL (74-106) Calcium Level 9.3 mg/dL (8.7-10.4) Troponin I High Sensitivity 7 ng/L (</=54) Triglycerides Level 196 mg/dL (< 150) Cholesterol Level 165 mg/dL (< 200) LDL Cholesterol 110 mg/dL (< 100) HDL Cholesterol 27 mg/dL (40-59) Urine Color Brown (Yellow) Urine Clarity Ex.turbid (Clear) Urine pH 6.0 (5.0-9.0) Urine Specific [place] 1.015 (1.001-1.035) Urine Protein 2+ (Negative) Urine Ketones Negative (Negative) Urine Blood 2+ /uL (Negative) Urine Nitrite 1+ (Negative) Urine Bilirubin Negative (Negative) Urine Urobilinogen Normal mg/dL (Negative) Urine Leukocyte Esterase 3+ /uL (Negative) Urine RBC 107 /hpf (0 - 3) Urine WBC Clumps Present /hpf (None Seen) Urine Microscopic WBC 5361 /HPF (0-3) Urine Squamous Epithelial Cells Few /hpf (<5) Urine Bacteria None seen /hpf (None Seen) Urine Sperm Present /hpf (None Seen) Urine Creatinine 58.48 mg/dL (30.0-125.0) Urine Sodium 80 mmol/L (40-220) Urine Glucose 2+ mg/dL (Normal) Urine Total Protein 343.3 mg/dL (1-14) Test 01/13/25 01:30 Total Bilirubin < 0.2 mg/dL (0.2-1.0) Aspartate Amino Transferase (AST) 8 U/L (13-40) Alanine Aminotransferase (ALT) 11 U/L (7-40) Alkaline Phosphatase 80 U/L (46-116) B-Type Natriuretic Peptide 130.98 pg/mL (0-100) Total Protein 7.1 g/dL (5.7-8.2) Albumin 3.7 g/dL (3.2-4.8) Thyroid Stimulating Hormone (TSH) 2.22 uIU/mL (0.55-4.78) Other Laboratory Tests 01/14/25 06:39 Brief Hx & Hospital Course: 75-year-old male presents for evaluation of chest pain. Patient reports a one day history of right-sided sharp chest pain with associated shortness for breath. She reports taking aspirin in the pain subsided temporarily. When it started again he called EMS to be brought in for evaluation. Currently he denies any chest pain. He left AMA Condition at Discharge: Stable Final Diagnosis/Problems List DENIS hemodynamic mediated likely VMN on CKD 3 V/S obstructive uropathy Hyperkalemia Left hydronephrosis Right 9 mm nephrolithiasis Uncontrolled diabetes mellitus Possible HFrEF, pending echo Chest pain r/o ACS, Hx of GA s/p PTCA Obesity morbid with a BMI 40.2 Dyslipidemia Discharge Disposition: AMA Discharge Instruct/Medications Scheduled Acetaminophen (Acetaminophen ER 8 Hour), 650 MG PO TID Amlodipine Besylate (Amlodipine Besylate), 1 TAB PO DAILY Ciprofloxacin Hcl (Ciprofloxacin Hcl), 1 TAB PO BID Clopidogrel Bisulfate (Clopidogrel), 1 TAB PO DAILY, (Reported) Insulin Glargine-Yfgn (Insulin Glargine), 60 UNIT SC DAILY, (Reported) Liraglutide (Victoza), 1.8 MG SUBCUT DAILY, (Reported) Methocarbamol (Methocarbamol), 500 MG PO PRN, (Reported) Tramadol Hcl (Tramadol Hcl), 50 MG PO TID, (Reported) Scheduled PRN Aspirin (Aspir-81), 1 TAB PO DAILY PRN Miscellaneous Medications Atorvastatin Calcium (Atorvastatin Calcium), 1 TAB PO, (Reported) Insulin Aspart Protamine & Asp (Insulin Aspart Protamine/ (70-30) 100 Unit/ml), 10 INJ SC, (Reported) Tamsulosin Hcl (Tamsulosin Hcl), CAP PO, (Reported) Discharge Statement: "Patient was advised to return to the ER or call 911 if any headaches, dizziness, shortness of breath, chest pain, abdominal pain, bleeding, fevers, or worsening of medical condition. Patient was counseled about treatment plan, medications, possible side effects, patientverbalized understanding. All questions were answered to the best of my ability. This discharge took greater then 30 minutes in planning, reviewing documentation, counseling the patient, and discussing with other team members." ASSESSMENT ASSESSMENT Assessment Date of Service: Jan 14, 2025 Billing Provider: KALE LOERA MD Common Visit Codes: 23187-VDT/OBS DISCH DAY >30min KALE LOERA MD Jan 14, 2025 17:54
== END 2025-01-14 12:40 | disposition left against medical advice (07) | DRG 291 ==
LOC: EDBD 00:44 → ER 00:44 → OVERFLOW 04:17 → TELE-WESTW 16:17
PROVIDERS: ADMIT Hospitalist; ATTEND Hospitalist
DX: I13.0 Hypertensive heart and chronic kidney disease with heart failure and stage 1 through stage 4 chronic kidney disease, or unspecified chronic kidney disease (principal); I50.33 Acute on chronic diastolic (congestive) heart failure; N17.0 Acute kidney failure with tubular necrosis; I24.9 Acute ischemic heart disease, unspecified; Z68.41 Body mass index [BMI] 40.0-44.9, adult; E11.22 Type 2 diabetes mellitus with diabetic chronic kidney disease; N18.30 Chronic kidney disease, stage 3 unspecified; N13.2 Hydronephrosis with renal and ureteral calculous obstruction; N13.8 Other obstructive and reflux uropathy; Z53.29 Procedure and treatment not carried out because of patient's decision for other reasons; E78.5 Hyperlipidemia, unspecified; N40.1 Benign prostatic hyperplasia with lower urinary tract symptoms; E66.01 Morbid (severe) obesity due to excess calories; E87.5 Hyperkalemia; E11.40 Type 2 diabetes mellitus with diabetic neuropathy, unspecified; I25.2 Old myocardial infarction; Z95.5 Presence of coronary angioplasty implant and graft; Z87.442 Personal history of urinary calculi; Z82.3 Family history of stroke; Z82.49 Family history of ischemic heart disease and other diseases of the circulatory system; Z79.2 Long term (current) use of antibiotics; Z79.82 Long term (current) use of aspirin; Z79.4 Long term (current) use of insulin
CPT/HCPCS: 36415; 71045; 76775; 80048; 80053; 80061; 81001; 82570; 82962; 83880; 84156; 84300; 84443; 84484; 85025; 93005; 93306; 94640; 99291; 99292; G0378; J1815